=== PATIENT | male | born 1945 | race Caucasian/White ===

== ENCOUNTER 2024-07-06 17:13 | Inpatient (IN) | payer MEDICARE, OTHER, SELFPAY ==
[2024-07-06 14:17] VITALS: BP 134/80
[2024-07-06 14:39] VITALS: BP 119/78; BMI 27.8
--- NOTE | 2024-07-06 14:53 | ED.GENMED ---
History of Present Illness
General
Chief Complaint: Cold/Flu/URI Symptoms
Source: patient and spouse
Exam Limitations: none
Time Seen by Provider: 07/06/24 14:28
Nursing documentation reviewed up to this point in time: agreed with
History of Present Illness
History of Present Illness:
79-year-old male with past medical history of hypertension, hyperlipidemia, CAD, atrial fibrillation, aortic stenosis who presents to the emergency room with his daughter for evaluation of malaise and cough in the setting of known COVID infection.
Patient reports that he has been ill for 10 days. He says that he tested positive for COVID about a week ago. He says that his primary symptom has been hacking cough productive of clear sputum. He reports some mild shortness of breath. He has
also had loss of appetite, tremendous fatigue, nausea and crampy abdominal pain with diarrhea/stool incontinence. He denies any chest pain. He denies any sore throat. He denies any fevers or chills. With his symptoms not improving after 10 days
he was referred by his primary doctor to the emergency room. He is vaccinated for COVID. He did not take Paxlovid.
Past History
Past History
ED Past Medical History: CAD, HTN, Hypercholesterolemia and Other (Arthritis, vertigo)
ED Past Surgical History: Cardiac and Orthopedic
Social History
Tobacco: Non-smoker
Personal:
Living: with family
Review of Systems
Review of Systems
All Other Systems: ROS reviewed and negative except as documented in HPI and ROS
Constitutional: Reports fatigue; Denies fever or chills
EENT: Denies sore throat or runny nose
Respiratory: Reports cough and trouble breathing
Cardiac: Denies chest pain or palpitations
ABD/GI: Reports abdominal pain, nausea, diarrhea and anorexia; Denies vomiting
: Denies flank pain
Musculoskeletal: Denies neck pain or back pain
Neurological: Denies dizzy or headache
Phy Exam
Physical Exam
Physical Exam:
General: Awake, alert, oriented x3; no acute distress
Head: Normocephalic, atraumatic
Eyes: Conjunctiva normal
Throat: Airway intact, handling secretions
Neck: Trachea midline, supple without meningismus
Lungs: Frequent hacking cough with occasional expiratory wheeze; acceptable respiratory rate, low normal pulse ox 92% on room air
Heart: Regular rate and rhythm, systolic murmur
Abd: Soft, non distended, nontender
Neuro: Cranial nerves grossly intact, speech fluid
Skin: no rash
Extremities: No edema in extremities, warm well-perfused
Scores
Heart Failure Risk
Heart Failure Risk Score: Not Applicable
Heart Score for Chest Pain Patients
STEMI patient?: Not applicable
Withdrawal Assessment of Alcohol
Withdrawal Assessment Completed?: Not applicable
Course
Orders/Labs/Results
Orders:
Orders
07/06/24 14:30
CR Chest - 2 Views Urgent
Comment:
Reason For Exam: persistent cough sp COVID
07/06/24 14:39
Ipratropium/Albuterol Sulfate [Duoneb] 3 ml INH R NOW ONE
07/06/24 14:40
0.9% Sodium Chloride 500 ml [Nss] 500 ml IV BOLUS
07/06/24 14:47
Complete Blood Count/With Diff Urgent
Comprehensive Metabolic Panel Urgent
07/06/24 15:17
EKG [Electrocardiogram (*1)] Urgent
Reason for Study: Atrial Fibrillation
EKG- Treatment ONCE
07/06/24 15:18
Azithromycin 500 mg/250 ml [Zithromax Infusion] 500 mg in 250 ml IV NOW
CefTRIAXone [Rocephin] 1,000 mg IV NOW STA
07/06/24 15:40
Doxycycline Hyclate [Vibramycin] 100 mg 0.9% Sodium Chloride 250 ml [Nss] 250 ml IV NOW
Abnormal Lab Results
07/06/24
14:47
WBC 11.0 H 10^3/uL
(4.8-10.8)
MPV 10.6 H fL
(7.4-10.4)
Abs Immat Gran (auto) 0.2 H 10^3/uL
(0-0.05)
Absolute Neuts (auto) 8.3 H 10^3/uL
(1.4-6.5)
Absolute Lymphs (auto) 0.8 L 10^3/uL
(1.2-3.4)
Absolute Monos (auto) 1.6 H 10^3/uL
(0.1-0.6)
Immature Gran % 2.0 H %
(0-0.5)
Neutrophils % 75.8 H %
(42.2-75.2)
Lymphocytes % 6.9 L %
(20.5-51.1)
Monocytes % 14.7 H %
(1.7-9.3)
Sodium 129 L mmol/L
(135-145)
Chloride 96 L mmol/L
(98-107)
BUN 28 H mg/dl
(9-20)
Glucose 151 H mg/dl
(70-99)
AST 95 H U/L
(17-59)
ALT 73 H U/L
(0-50)
Total Protein 5.9 L g/dl
(6.3-8.2)
07/06/24 14:47
07/06/24 14:47
Vital Signs
Initial and Last Documented VS:
Initial Vital Signs
Temp Pulse Resp BP Pulse Ox
37.0 C 99 17 134/80 91
07/06/24 14:17 07/06/24 14:17 07/06/24 14:17 07/06/24 14:17 07/06/24 14:17
Last Documented Vital Signs
Temp Pulse Resp BP Pulse Ox
37.0 C 116 17 119/78 96
07/06/24 14:17 07/06/24 14:45 07/06/24 14:45 07/06/24 14:39 07/06/24 15:04
MDM/Problems Addressed
Differential Diagnosis Includes:
Bronchitis, pneumonia, viral syndrome
MDM/Problems Addressed:
79-year-old male presents for evaluation of continued malaise, cough, GI symptoms in the setting of a known COVID infection�he is 10 days into his symptoms. Vital signs were significant for low normal pulse ox on room air; rest of exam as above.
Plan to place an IV check labs including a CBC and a CMP. Will check a chest x-ray to evaluate for pneumonia. Will treat with a DuoNeb treatment. Provide some fluids. Will reassess after the above.
Labs reviewed: CBC shows leukocytosis to 11. CMP shows mild hyponatremia 129, marginal transaminitis. Chest x-ray reviewed by me shows right lower lung pneumonia. Will treat with antibiotics for community-acquired pneumonia. CURB-65 score 2 and
given co-morbidities and post-viral pneumonia will admit for continued treatment. Case discussed with hospitalist.
*Radiology
Radiology exam reviewed: preliminary read by ED provider and radiology read reviewed
*Pulse Oximetry
Patient hypoxic: no
*EKG
Interpreted by ED Provider?: Yes
Heart Rate: 96
Rate: normal
Rhythm: a-fib
[place]: normal axis
Interval: normal interval
QRS Pattern: normal QRS
Ischemia: non-specific ST changes
*Critical Care Note
Total Time (30-74mins, 75-104mins- exclusive of procedures): Not Applicable
Data Reviewed
Source: patient, spouse and physician (PCP called ahead)
Patient Management
Discussion with other providers: Hospitalist (Discussed with hospitalist) and PCP (Discussed directly with primary care provider)
Escalation/DeEscalation of care consider admission/obs:
Admission indicated
ED Attending Note
-
Portions of this chart may have been created with voice recognition software.� Occasional wrong word or��sound alike� substitutions may have occurred due to the inherent limitations of voice recognition software.
Discharge Plan
Departure
Patient Disposition: Admit
Date of Disposition: 07/06/24
Time of Disposition: 15:59
Admit to doctor: Do
Presentation/result/management discussed w/ accepting MD/DO: Hospitalist
Patient with high blood pressure during this ER visit?: No
Discharge Problem:
Pneumonia
Prescriptions:
No Action
tamsulosin 0.4 MG capsule
0.4 mg PO DAILY
finasteride 5 MG tablet
5 mg PO DAILY
escitalopram oxalate 20 mg Tablet
20 mg PO HS
rosuvastatin 40 mg Tablet
40 mg PO HS
bupropion HCl 150 mg Tablet Extended Release 24 Hr
150 mg PO DAILY
aspirin 81 MG tablet,delayed release (DR/EC)
81 mg PO DAILY
ibuprofen [Advil Liqui-Gel] 200 mg Capsule
400 mg PO Q6HPRN PRN (Reason: mild pain)
amlodipine [Norvasc] 5 mg Tablet
5 mg PO QPM
TheraTears 0.25 % Drops
1 drp BOTH EYES BIDPRN PRN (Reason: dryness)
dextroamphetamine-amphetamine [Adderall] 20 mg Tablet
20 mg PO BID
Sinex Ultra Fine Mist Regular 0.5 % Mist
1 spray INTRANASAL DAILYPRN PRN (Reason: congestion)
Eliquis 5 mg Tablet
5 mg PO BID
oxycodone-acetaminophen [Endocet] 10-325 mg tablet
1 tab PO Q3HPRN MDD 8 tablets PRN (Reason: severe pain)
benzonatate 100 mg Capsule
100 mg PO TIDPRN PRN (Reason: cough)
Tylenol Cold and Flu Severe [phone] mg Tablet
2 tab PO DAILYPRN PRN (Reason: head pressure)
Referrals:
Iris Evans PA-C [Family Provider] -
Interventions
Interventions:
*Risk Screen - Suicide Last Done: 07/06/24 14:39
*General Assessment Last Done: 07/06/24 14:39
*Neglect/Abuse Screening Last Done: 07/06/24 14:39
ED- Fall Risk Assessment Last Done: 07/06/24 14:39
*ED COVID-19 Vaccine History Last Done: 07/06/24 14:39
ED- Pulmonary Assessment Last Done: 07/06/24 15:04
Discharge Date and Time
Print Language: BENGALI
[2024-07-06] MEDS: NSS 500 IV (14:59)
[2024-07-06] MEDS: DUONEB 3 ML INH (15:12)
[2024-07-06 15:17] LABS: Hematocrit 41.5 % (39.0-52.0); Hemoglobin 15.1 g/dL (13.0-18.0); Mean Corp Hgb Conc. 36.4 g/dL (33.0-37.0); Mean Corpuscular Hgb 29.3 pg (27.0-31.0); Mean Corpuscular Volume 80.6 fL (80.0-94.0); Mean Platelet Volume 10.6 fL (7.4-10.4); Platelet Count 250 10^3/uL (130-400); Red Blood Cell Count 5.15 10^6/uL (4.70-6.10); Red Cell Dist. Width 12.9 % (11.5-14.5)
[2024-07-06] MEDS: ROCEPHIN 1000 MG IV (15:24)
[2024-07-06] MEDS: ZITHROMAX INFUSION 250 IV (15:25)
[2024-07-06 15:43] LABS: % Basophils 0.5 % (0-2); % Eosinophils 0.1 % (0-6); % Lymphocytes 6.9 % (20.5-51.1); % Monocytes 14.7 % (1.7-9.3); % Neutrophils 75.8 % (42.2-75.2); Absolute Basophils 0.1 10^3/uL (0-0.2); Absolute Immature Granulocytes 0.2 10^3/uL (0-0.05); Absolute Lymphocytes 0.8 10^3/uL (1.2-3.4); Absolute Monocytes 1.6 10^3/uL (0.1-0.6); Absolute Neutrophils 8.3 10^3/uL (1.4-6.5); Nucleated Red Blood Cells % 0 % (-)
[2024-07-06 15:56] LABS: ALT (SGPT) 73 U/L (0-50); AST (SGOT) 95 U/L (17-59); Albumin 3.5 g/dl (3.5-5.0); Alkaline Phosphatase 90 U/L (38-126); Blood Urea Nitrogen 28 mg/dl (9-20); Calcium 8.9 mg/dl (8.4-10.2); Carbon Dioxide 23 mmol/L (22-30); Chloride 96 mmol/L (98-107); Estimated Creatinine Clearance 80 ml/min; Glucose 151 mg/dl (70-99); Potassium 3.6 mmol/L (3.5-5.1); Sodium 129 mmol/L (135-145); Total Bilirubin 1.2 mg/dl (0.2-1.3); Total Protein 5.9 g/dl (6.3-8.2); eGFR > 60.00
[2024-07-06 16:00] VITALS: BP 132/78
[2024-07-06] MEDS: VIBRAMYCIN 260 MG IV (16:27)
--- NOTE | 2024-07-06 16:51 | HPS.HSE ---
Family Physician
-
Family Physician: Iris Evans
Chief Complaint
-
Cough, flulike symptoms
History of Present Illness
79-year-old male with past medical history of CAD status post quadruple bypass, hypertension, hyperlipidemia, arthritis, paroxysmal atrial fibrillation, aortic stenosis status post aortic valve replacement came to the hospital with ongoing cough,
malaise. Patient has been having the symptoms from past 10 days and got himself checked for COVID this past Friday which came out positive. Since his symptoms were not getting better so his primary care provider told him to come to the ED for
evaluation. He also does note mild shortness of breath. Denies any fever/chills. Denies any chest pain, nausea, vomiting, diarrhea, constipation. He did not took Paxlovid when he was diagnosed with COVID.
Medical History
Past Medical History
Past Medical History: Reports Arrhythmia, CAD, HTN, Hypercholesterolemia and Other (BPH, arthritis)
Past Surgical History: Reports Cardiac (Quadruple bypass, aortic valve replacement) and Orthopedic
Social History
Tobacco: Non-smoker
Family History
Family History: Not pertinent
Allergies / Home Medications
Allergies reflects when Allergies were last updated in [email or web address].
Home Medications with original date entered in [email or web address]
Allergy/Medication List:
Allergies
Allergy/AdvReac Type Severity Reaction Status Date / Time
diazepam [From Valium] Allergy 'I get Verified 07/06/24 14:17
violent'
Home Medications
finasteride 5 mg tablet 5 mg PO DAILY Urinary issue 09/05/20
tamsulosin 0.4 mg capsule 0.4 mg PO DAILY Urinary issue 09/05/20
bupropion HCl 150 mg 24 hr tablet, extended release 150 mg PO DAILY Mental health 10/10/22
escitalopram oxalate 20 mg tablet 20 mg PO HS Mental health 10/10/22
rosuvastatin 40 mg tablet 40 mg PO HS High cholesterol 10/10/22
aspirin 81 mg tablet,delayed release 81 mg PO DAILY Blood clot prevention/tx 11/25/22
amlodipine 5 mg tablet (Norvasc) 5 mg PO QPM 07/06/24
apixaban 5 mg tablet (Eliquis) 5 mg PO BID 07/06/24
benzonatate 100 mg capsule 100 mg PO TIDPRN PRN cough 07/06/24
carboxymethylcellulose sodium 0.25 % eye drops (TheraTears) 1 drp BOTH EYES BIDPRN PRN dryness 07/06/24
dextroamphetamine-amphetamine 20 mg tablet (Adderall) 20 mg PO BID 07/06/24
ibuprofen 200 mg capsule (Advil Liqui-Gel) 400 mg PO Q6HPRN PRN mild pain 07/06/24
oxycodone-acetaminophen 10 mg-325 mg tablet (Endocet) 1 tab PO Q3HPRN PRN severe pain 07/06/24
phenylephrine HCl 0.5 % nasal mist 1 spray intranasal DAILYPRN PRN congestion 07/06/24
zpictbekghphk-JO-janxgimvtnjar-guaifen 5 mg-10 mg-325 mg-200 mg tablet (Tylenol Cold and Flu Severe) 2 tab PO DAILYPRN PRN head pressure 07/06/24
Review of Systems
-
History Source: Patient
A 12 point ROS was completed and negative except as noted: Yes
Physical Exam
Vital Signs
Vital Signs
Temp Pulse Resp BP Pulse Ox
98.6 F 104 22 132/78 94
07/06/24 14:17 07/06/24 16:00 07/06/24 16:00 07/06/24 16:00 07/06/24 16:00
Physical Exam
General: No Apparent Distress and Comfortable
HEENT: Anicteric and Moist mucous membranes
Respiratory: Clear and Non Labored Respirations; No Wheezes
Cardiac: S1/S2, Regular Rhythm and Irregular Rhythm
Breast: Deferred by me
GI: Soft, Non Tender, Non Distended and Normal Bowel Sounds
Rectal: Deferred by Provider
Genito-urinary: Deferred by me
Musculoskeletal: No Edema
Neuro: Awake, Alert, Oriented and AO x 3
Psych: Calm and Intact Judgment/Insight
Laboratory Results
-
07/06/24 14:47
07/06/24 14:47
Laboratory Results
Total Bilirubin 1.2 mg/dl (0.2-1.3) 07/06/24 14:47
AST 95 U/L (17-59) H 07/06/24 14:47
ALT 73 U/L (0-50) H 07/06/24 14:47
Alkaline Phosphatase 90 U/L (38-126) 07/06/24 14:47
Data Reviewed
-
Diagnostic Radiology: Report Reviewed by me and Discussed with Patient
Lab Data: Labs Reviewed by me and Discussed with Patient
Impression/Plan
-
Suspect superimposed bacterial pneumonia with underlying COVID-19 infection
COVID-positive 07/03/2024 however symptoms started before with fatigue
covid vaccinated
02 used on admission for comfort; no clear timeline so not a good candidate for paxlovid
CXR with PNA; check procal
Tessalon Perles, Mucinex
check trop
Hyponatremia
Check urine and serum studies
Monitor
Elevated LFTs
Monitor
History of paroxysmal A-fib
Currently in A-fib, rate controlled
Lopressor as needed
Check troponin
Follows with Dr. Wilburn outpatient
Continue Eliquis
CAD with history of quadruple bypass
Continue to monitor
History of aortic valve replacement
Monitor
History of BPH
Continue with home meds
DVT prophylaxis
Eliquis
Full code
I spent a total of 77 minutes with the patient or on the floor. More than 50% of this time involved counseling and coordination of care.
[2024-07-06 17:41] VITALS: BP 140/79; BMI 27.7
[2024-07-06 17:46] LABS: Troponin I 0.033 ng/ml
[2024-07-06 17:57] LABS: Procalcitonin 2.21 ng/ml (0.0-0.25)
[2024-07-06] MEDS: NORVASC 5 MG PO (18:16)
[2024-07-06] MEDS: NSS 1000 IV (18:16)
[2024-07-06] MEDS: KCL 40 MEQ PO (18:16)
[2024-07-06] MEDS: MUCINEX 1200 MG PO (18:16)
[2024-07-06 18:34] LABS: Osmolality Serum 281 mOsm/kg (275-300)
[2024-07-06 18:39] VITALS: BMI 27.7
[2024-07-06 20:09] VITALS: BP 137/81
[2024-07-06] MEDS: BENADRYL 6.25 MG IV (21:02)
[2024-07-06] MEDS: ELIQUIS 5 MG PO (21:03)
[2024-07-06] MEDS: TESSALON PERLES 200 MG PO (21:39)
[2024-07-06] MEDS: LEXAPRO 20 MG PO (21:39)
[2024-07-06] MEDS: CRESTOR 40 MG PO (21:39)
[2024-07-06 22:00] LABS: Troponin I 0.032 ng/ml
[2024-07-06 23:01] VITALS: BP 121/76
[2024-07-07] VITALS (8 sets, daily range): BP systolic 108–130; BP diastolic 64–83; PULSE 57–94; O2SAT 94; BMI 28.3
[2024-07-07] MEDS: VISBIOME 1 CAP PO ×2 (00:29→08:53)
[2024-07-07] MEDS: VIBRAMYCIN 260 MG IV ×2 (03:55→15:15)
[2024-07-07 06:43] LABS: Osmolality Urine 911 mOsm/kg (300-900)
[2024-07-07 06:52] LABS: Urine Sodium 5 mmol/L (30-90)
[2024-07-07 07:12] LABS: Troponin I 0.042 ng/ml
[2024-07-07 07:27] LABS: ALT (SGPT) 59 U/L (0-50); AST (SGOT) 68 U/L (17-59); Alkaline Phosphatase 93 U/L (38-126); Blood Urea Nitrogen 23 mg/dl (9-20); Calcium 8.2 mg/dl (8.4-10.2); Carbon Dioxide 24 mmol/L (22-30); Chloride 100 mmol/L (98-107); Estimated Creatinine Clearance 93 ml/min; Glucose 101 mg/dl (70-99); Magnesium 2.3 mg/dl (1.6-2.3); Potassium 3.6 mmol/L (3.5-5.1); Sodium 133 mmol/L (135-145); Total Bilirubin 0.8 mg/dl (0.2-1.3); Total Protein 5.2 g/dl (6.3-8.2); eGFR > 60.00
[2024-07-07 08:06] LABS: % Basophils 0.4 % (0-2); % Eosinophils 0.1 % (0-6); % Immature Granulocytes 2.5 % (0-0.5); % Lymphocytes 12.4 % (20.5-51.1); % Monocytes 15.4 % (1.7-9.3); % Neutrophils 69.2 % (42.2-75.2); Absolute Immature Granulocytes 0.3 10^3/uL (0-0.05); Absolute Lymphocytes 1.2 10^3/uL (1.2-3.4); Absolute Monocytes 1.5 10^3/uL (0.1-0.6); Absolute Neutrophils 6.9 10^3/uL (1.4-6.5); Hematocrit 38.5 % (39.0-52.0); Hemoglobin 13.7 g/dL (13.0-18.0); Mean Corp Hgb Conc. 35.6 g/dL (33.0-37.0); Mean Corpuscular Hgb 29.8 pg (27.0-31.0); Mean Corpuscular Volume 83.7 fL (80.0-94.0); Mean Platelet Volume 10.7 fL (7.4-10.4); Nucleated Red Blood Cells % 0 % (-); Platelet Count 233 10^3/uL (130-400); Red Cell Dist. Width 12.9 % (11.5-14.5); White Blood Cell Count 9.9 10^3/uL (4.8-10.8)
[2024-07-07] MEDS: FLOMAX 0.4 MG PO (08:52)
[2024-07-07] MEDS: MUCINEX 1200 MG PO ×2 (08:52→19:43)
[2024-07-07] MEDS: PROSCAR 5 MG PO (08:53)
[2024-07-07] MEDS: ELIQUIS 5 MG PO ×2 (08:53→19:43)
[2024-07-07] MEDS: WELLBUTRIN XL (24 hour extended release) 150 MG PO (08:53)
[2024-07-07] MEDS: ADDERALL 20 MG PO ×2 (08:53→12:44)
[2024-07-07] MEDS: ASPIR LOW (ENTERIC COATED) 81 MG PO (08:53)
[2024-07-07] MEDS: TESSALON PERLES 200 MG PO ×3 (08:53→21:38)
[2024-07-07 11:01] LABS: Troponin I 0.031 ng/ml
--- NOTE | 2024-07-07 11:40 | W.PN.HOSP.TC ---
Today's Communication/Plan
-
Monitor vital signs see plan
Wean oxygen as tolerated
Continue with COVID isolation
Continue antibiotics
PT/OT
Continue with Mucinex, Tessalon Perles
Assessment / Plan
Assessment / Plan
General: No Apparent Distress and Comfortable
HEENT: Anicteric and Moist mucous membranes
Respiratory: Clear and Non Labored Respirations; No Wheezes
Cardiac: S1/S2, Regular Rhythm and Irregular Rhythm
GI: Soft, Non Tender, Non Distended and Normal Bowel Sounds
Musculoskeletal: No Edema
Neuro: Awake, Alert, Oriented and AO x 3
Psych: Calm and Intact Judgment/Insight
Suspect superimposed bacterial pneumonia with underlying COVID-19 infection
COVID-positive 07/03/2024 however symptoms started before with fatigue
covid vaccinated
02 used on admission for comfort; no clear timeline so not a good candidate for paxlovid. Wean oxygen as tolerated
CXR with PNA;procal high
Tessalon Perles, Mucinex
check trop
Elevated Trope likely secondary to nonischemic myocardial injury
Trope peaked at 0.04
Hyponatremia
Monitor, improving
Elevated LFTs
Monitor
History of paroxysmal A-fib
Currently in A-fib, rate controlled
Lopressor as needed
Follows with Dr. Wilburn outpatient
Continue Eliquis
CAD with history of quadruple bypass
Continue to monitor
History of aortic valve replacement
Monitor
History of BPH
Continue with home meds
DVT prophylaxis
Eliquis
Full code
Anticipated Discharge: 24 - 48 hours
Subjective/Interval History
-
Date of Service: July 07, 2024
Denies pain
Objective Data
-
Labs:
Laboratory Results
07/07/24
05:09
WBC 9.9
Hgb 13.7
Hct 38.5 L
Plt Count 233
Sodium 133 L
Potassium 3.6
Chloride 100
Carbon Dioxide 24
BUN 23 H
Creatinine 0.6 L
Glucose 101 H
Calcium 8.2 L
Total Bilirubin 0.8
AST 68 H
ALT 59 H
Alkaline Phosphatase 93
Vital Signs:
Vital Signs
Temp Pulse Resp BP Pulse Ox
97.8 F 95 18 130/79 96
07/07/24 07:10 07/07/24 07:10 07/07/24 07:10 07/07/24 07:10 07/07/24 07:10
I&O
07/06/24 07/07/24 07/08/24
06:59 06:59 06:59
Output Total 415 / 415
Balance -415 / -415
--- NOTE | 2024-07-07 12:27 | CM ---
Addendum entered by Alex Coronado 07/07/24 13:44:
PT and OT evaluations noted - home PT/OT recommended. pt agrees and preferred [facility]. A referral to [facility] made.
D/C plan: home with [facility] and family support.
Original Note:
CM following re: discharge planning.
Reviewed pt's chart, met with pt.
Pt is an 79 year old male, admitted with primary dx of superimposed bacterial pneumonia with underlying COVID-19 infection
Pt reports he lives with spouse in a 2SH, 2 steps to enter, has 2 supportive children. 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 No DME, VN or SNF history.
PT and OT will evaluate the pt to determine a level of care at discharge.
PCP: Iris Evans
Pharmacy: [facility]
D/C plan: home with anticipated no needs. PT/OT to clarify
CM will follow wit discharge plan updates as hospitalization progresses
--- NOTE | 2024-07-07 15:07 | VNURNOTE ---
Home Health Liaison spoke with patient over the phone to discuss [facility] nurse/therapy, visits. Patient is agreeable and understands that visits at home will be 2-3 x per week to assess and teach medical management. He has had VN in the past post
heart surgery. Patient is aware that [facility] will contact them for start of care within a few days after discharge from .
[facility] referral completed in [facility].
[2024-07-07] MEDS: ROCEPHIN 1000 MG IV (15:15)
[2024-07-07] MEDS: STERILE WATER FOR INJECTION 10 ML IV (15:15)
[2024-07-07] MEDS: NORVASC 5 MG PO (17:27)
[2024-07-07] MEDS: CRESTOR 40 MG PO (21:37)
[2024-07-07] MEDS: LEXAPRO 20 MG PO (21:38)
[2024-07-08 03:32] VITALS: BP 117/79
[2024-07-08] MEDS: VIBRAMYCIN 260 MG IV ×2 (03:33→16:12)
[2024-07-08 06:00] VITALS: BMI 28.4
[2024-07-08 07:15] VITALS: BP 110/78
[2024-07-08 07:21] LABS: ALT (SGPT) 72 U/L (0-50); AST (SGOT) 80 U/L (17-59); Albumin 2.9 g/dl (3.5-5.0); Alkaline Phosphatase 93 U/L (38-126); Blood Urea Nitrogen 21 mg/dl (9-20); Calcium 8.4 mg/dl (8.4-10.2); Carbon Dioxide 22 mmol/L (22-30); Chloride 105 mmol/L (98-107); Estimated Creatinine Clearance 93 ml/min; Glucose 107 mg/dl (70-99); Potassium 3.7 mmol/L (3.5-5.1); Sodium 133 mmol/L (135-145); Total Bilirubin 0.5 mg/dl (0.2-1.3); Total Protein 5.1 g/dl (6.3-8.2); eGFR > 60.00
[2024-07-08 07:29] LABS: Hematocrit 35.6 % (39.0-52.0); Hemoglobin 12.6 g/dL (13.0-18.0); Mean Corp Hgb Conc. 35.4 g/dL (33.0-37.0); Mean Corpuscular Volume 81.8 fL (80.0-94.0); Platelet Count 279 10^3/uL (130-400); Red Blood Cell Count 4.35 10^6/uL (4.70-6.10); Red Cell Dist. Width 13.2 % (11.5-14.5); White Blood Cell Count 10.4 10^3/uL (4.8-10.8)
[2024-07-08] MEDS: ADDERALL 20 MG PO ×2 (08:27→13:15)
[2024-07-08] MEDS: MUCINEX 1200 MG PO ×2 (08:27→20:51)
[2024-07-08] MEDS: FLOMAX 0.4 MG PO (08:27)
[2024-07-08] MEDS: ASPIR LOW (ENTERIC COATED) 81 MG PO (08:27)
[2024-07-08] MEDS: VISBIOME 1 CAP PO (08:27)
[2024-07-08] MEDS: TESSALON PERLES 200 MG PO ×3 (08:28→21:57)
[2024-07-08] MEDS: WELLBUTRIN XL (24 hour extended release) 150 MG PO (08:28)
[2024-07-08] MEDS: PROSCAR 5 MG PO (08:28)
[2024-07-08] MEDS: ELIQUIS 5 MG PO ×2 (08:28→20:51)
[2024-07-08 09:14] LABS: % Basophils 0.5 % (0-2); % Eosinophils 0.5 % (0-6); % Immature Granulocytes 5.1 % (0-0.5); % Lymphocytes 16.1 % (20.5-51.1); % Monocytes 10.3 % (1.7-9.3); % Neutrophils 67.5 % (42.2-75.2); Absolute Basophils 0.1 10^3/uL (0-0.2); Absolute Eosinophils 0.1 10^3/uL (0-0.7); Absolute Immature Granulocytes 0.5 10^3/uL (0-0.05); Absolute Lymphocytes 1.7 10^3/uL (1.2-3.4); Absolute Monocytes 1.1 10^3/uL (0.1-0.6); Absolute Neutrophils 7.1 10^3/uL (1.4-6.5); Nucleated Red Blood Cells % 0 % (-)
--- NOTE | 2024-07-08 11:34 | W.PN.HOSP.TC ---
Today's Communication/Plan
-
Monitor vital signs and see plan
Continue with antibiotics
Antitussives
Continue to wean oxygen
Assessment / Plan
Assessment / Plan
General: No Apparent Distress and Comfortable
HEENT: Anicteric and Moist mucous membranes
Respiratory: Clear and Non Labored Respirations; No Wheezes
Cardiac: S1/S2, Regular Rhythm and Irregular Rhythm
GI: Soft, Non Tender, Non Distended and Normal Bowel Sounds
Musculoskeletal: No Edema
Neuro: Awake, Alert, Oriented and AO x 3
Psych: Calm and Intact Judgment/Insight
Suspect superimposed bacterial pneumonia with underlying COVID-19 infection
COVID-positive 07/03/2024 however symptoms started before with fatigue
covid vaccinated
02 used on admission for comfort; no clear timeline so not a good candidate for paxlovid. Wean oxygen as tolerated
CXR with PNA;procal high
Tessalon Perles, Mucinex
Elevated Trope likely secondary to nonischemic myocardial injury
Trope peaked at 0.04
History of BPH
Periods of Acute urinary retention status post straight cath
Continue with home meds
Hyponatremia
Monitor, improving
Elevated LFTs
Monitor
History of paroxysmal A-fib
Currently in A-fib, rate controlled
Lopressor as needed
Follows with Dr. Wilburn outpatient
Continue Eliquis
CAD with history of quadruple bypass
Continue to monitor
History of aortic valve replacement
Monitor
DVT prophylaxis
Eliquis
Full code
Anticipated Discharge: 24 - 48 hours
Subjective/Interval History
-
Date of Service: July 08, 2024
denies pain
Objective Data
-
Labs:
Laboratory Results
07/08/24
06:35
WBC 10.4
Hgb 12.6 L
Hct 35.6 L
Plt Count 279
Sodium 133 L
Potassium 3.7
Chloride 105
Carbon Dioxide 22
BUN 21 H
Creatinine 0.6 L
Glucose 107 H
Calcium 8.4
Total Bilirubin 0.5
AST 80 H
ALT 72 H
Alkaline Phosphatase 93
Vital Signs:
Vital Signs
Temp Pulse Resp BP Pulse Ox
97.7 F 92 20 110/78 94
07/08/24 07:15 07/08/24 07:15 07/08/24 07:15 07/08/24 07:15 07/08/24 07:15
I&O
07/07/24 07/08/24 07/09/24
06:59 06:59 06:59
Intake Total 1620 / 1620
Output Total 415 / 415 600 / 600
Balance -415 / -415 1020 / 1020
[2024-07-08 11:56] VITALS: BP 104/74
--- NOTE | 2024-07-08 13:52 | PTCARENOTE ---
pt attempted to void in urinal with no success. pt scanned for 402ml, straight cathed at bedside by this nurse for 450 of aamri colored urine. pt tolerated catheterization. made aware. order to straight cath one more time if needed and then if
still retaining to place a bob. BUN of 21 and creat of 0.6 this morning.
--- NOTE | 2024-07-08 14:53 | CM ---
COVID: Discharge Plan of Care: Home with [facility], PT/OT services.
[2024-07-08 15:29] VITALS: BP 115/69
[2024-07-08] MEDS: ROCEPHIN 1000 MG IV (16:12)
[2024-07-08] MEDS: STERILE WATER FOR INJECTION 10 ML IV (16:12)
[2024-07-08 16:23] VITALS: BP 135/89; BP 99/75; PULSE 95; O2SAT 95
[2024-07-08] MEDS: NORVASC PO (18:14)
[2024-07-08] MEDS: CRESTOR 40 MG PO (20:51)
[2024-07-08] MEDS: LEXAPRO 20 MG PO (20:51)
[2024-07-08 23:10] VITALS: BP 134/88
[2024-07-08] MEDS: ROXICODONE 10 MG PO (23:40)
[2024-07-08] MEDS: TYLENOL 325 MG PO (23:41)
[2024-07-09] MEDS: VIBRAMYCIN 260 MG IV ×2 (03:47→15:53)
[2024-07-09 05:20] VITALS: BMI 28.5
--- NOTE | 2024-07-09 06:51 | W.PN.UPDATE ---
Update Note
Progress Note Update
Nursing reports patient passed a black stool which was heme +. He c/o nausea. will give compazine. morning labs pending. He takes Eliquis for afib.
[2024-07-09] MEDS: COMPAZINE 5 MG IV (07:06)
[2024-07-09 07:10] VITALS: BP 130/75
--- NOTE | 2024-07-09 07:17 | PTCARENOTE ---
Pt noted with x1 episode of black loose stool this morning and c/o nausea. Hemtest stool +, audiovisual production specialist TERRESTRIAL ECOLOGIST made aware, advised to hold am dose of eliquis, compazine given. On coming shift nurse made aware.
[2024-07-09 07:38] LABS: Hematocrit 35.9 % (39.0-52.0); Hemoglobin 12.9 g/dL (13.0-18.0); Mean Corp Hgb Conc. 35.9 g/dL (33.0-37.0); Mean Corpuscular Hgb 29.2 pg (27.0-31.0); Mean Corpuscular Volume 81.2 fL (80.0-94.0); Mean Platelet Volume 9.8 fL (7.4-10.4); Platelet Count 275 10^3/uL (130-400); Red Blood Cell Count 4.42 10^6/uL (4.70-6.10); Red Cell Dist. Width 13.2 % (11.5-14.5); White Blood Cell Count 8.9 10^3/uL (4.8-10.8)
[2024-07-09 07:46] LABS: ALT (SGPT) 72 U/L (0-50); AST (SGOT) 77 U/L (17-59); Albumin 2.9 g/dl (3.5-5.0); Alkaline Phosphatase 97 U/L (38-126); Blood Urea Nitrogen 18 mg/dl (9-20); Calcium 8.2 mg/dl (8.4-10.2); Carbon Dioxide 22 mmol/L (22-30); Chloride 104 mmol/L (98-107); Estimated Creatinine Clearance 93 ml/min; Glucose 108 mg/dl (70-99); Potassium 3.8 mmol/L (3.5-5.1); Sodium 133 mmol/L (135-145); Total Bilirubin 0.5 mg/dl (0.2-1.3); Total Protein 5.2 g/dl (6.3-8.2); eGFR > 60.00
[2024-07-09] MEDS: WELLBUTRIN XL (24 hour extended release) 150 MG PO (08:30)
[2024-07-09] MEDS: ADDERALL 20 MG PO ×2 (08:30→13:41)
[2024-07-09] MEDS: PROSCAR 5 MG PO (08:30)
[2024-07-09] MEDS: TESSALON PERLES 200 MG PO ×3 (08:30→21:08)
[2024-07-09] MEDS: ELIQUIS PO ×2 (08:30→20:35)
[2024-07-09] MEDS: FLOMAX 0.4 MG PO (08:30)
[2024-07-09] MEDS: VISBIOME 1 CAP PO (08:30)
[2024-07-09] MEDS: ASPIR LOW (ENTERIC COATED) 81 MG PO (08:33)
[2024-07-09] MEDS: MUCINEX 1200 MG PO ×2 (08:33→19:46)
[2024-07-09] MEDS: PROTONIX 40 MG PO (08:33)
[2024-07-09 09:52] LABS: % Basophils 0.5 % (0-2); % Eosinophils 0.7 % (0-6); % Immature Granulocytes 5.6 % (0-0.5); % Lymphocytes 14.8 % (20.5-51.1); % Monocytes 9.3 % (1.7-9.3); % Neutrophils 69.1 % (42.2-75.2); Absolute Eosinophils 0.1 10^3/uL (0-0.7); Absolute Immature Granulocytes 0.5 10^3/uL (0-0.05); Absolute Lymphocytes 1.3 10^3/uL (1.2-3.4); Absolute Monocytes 0.8 10^3/uL (0.1-0.6); Absolute Neutrophils 6.1 10^3/uL (1.4-6.5); Nucleated Red Blood Cells % 0 % (-)
--- NOTE | 2024-07-09 10:18 | PTCARENOTE ---
pt with bloody stools for manager night. HAND DRY CLEANER made aware overnight and MD made aware this morning. hgb was 12.9 this am. MD order to hold morning dose of Eliquis. see MAR for proper charting
--- NOTE | 2024-07-09 11:44 | W.PN.HOSP.TC ---
Today's Communication/Plan
-
Monitor vital signs see plan
Started PPI
GI evaluation if has more periods of black stool
Check H&H
Hold Eliquis currently
Continue with antibiotics
monitor LFT's
Assessment / Plan
Assessment / Plan
General: No Apparent Distress and Comfortable
HEENT: Anicteric and Moist mucous membranes
Respiratory: Clear and Non Labored Respirations; No Wheezes
Cardiac: S1/S2, Irregular Rhythm
GI: Soft, Non Tender, Non Distended and Normal Bowel Sounds
Musculoskeletal: No Edema
Neuro: Awake, Alert, Oriented and AO x 3
Psych: Calm and Intact Judgment/Insight
Suspect superimposed bacterial pneumonia with underlying COVID-19 infection
COVID-positive 07/03/2024 however symptoms started before with fatigue
covid vaccinated
02 used on admission for comfort; no clear timeline so not a good candidate for paxlovid. Wean oxygen as tolerated
CXR with PNA;procal high
Tessalon Perles, Mucinex
Black stool overnight with heme + stool
Currently Eliquis on hold; no abdominal pain. PPI
Monitor hemoglobin
If further bloody bowel movements then will consult GI
If hemoglobin stable and no further bowel movements then will restart Eliquis
Patient has history of hemorrhoids
Elevated Trope likely secondary to nonischemic myocardial injury
Trope peaked at 0.04
History of BPH
Periods of Acute urinary retention s/p bob; voiding trial once more ambulatory
Continue with home meds
Follows with Dr. Medina outpatient
Hyponatremia
Monitor, improving
Elevated LFTs
Monitor
History of paroxysmal A-fib
Currently in A-fib, rate controlled
Lopressor as needed
Follows with Dr. Wilburn outpatient
Continue Eliquis
CAD with history of quadruple bypass
Continue to monitor
History of aortic valve replacement
Monitor
DVT prophylaxis
Eliquis
Full code
I spent a total of 52 minutes with the patient or on the floor. More than 50% of this time involved counseling and coordination of care.
Anticipated Discharge: 24 - 48 hours
Subjective/Interval History
-
Date of Service: July 09, 2024
denies pain
Objective Data
-
Labs:
Laboratory Results
07/09/24
06:47
WBC 8.9
Hgb 12.9 L
Hct 35.9 L
Plt Count 275
Sodium 133 L
Potassium 3.8
Chloride 104
Carbon Dioxide 22
BUN 18
Creatinine 0.5 L
Glucose 108 H
Calcium 8.2 L
Total Bilirubin 0.5
AST 77 H
ALT 72 H
Alkaline Phosphatase 97
Vital Signs:
Vital Signs
Temp Pulse Resp BP Pulse Ox
97.9 F 100 16 130/75 96
07/09/24 07:10 07/09/24 07:10 07/09/24 07:10 07/09/24 07:10 07/09/24 10:12
I&O
07/08/24 07/09/24 07/10/24
06:59 06:59 06:59
Intake Total 1620 / 1620 2080 / 2080
Output Total 600 / 600 1400 / 1400
Balance 1020 / 1020 680 / 680
[2024-07-09 12:39] LABS: Hematocrit 36.8 % (39.0-52.0)
[2024-07-09 15:00] VITALS: BP 123/81
--- NOTE | 2024-07-09 15:05 | CM ---
Hem + stool, monitoring. Discharge Plan of Care remains home with [facility], PT/OT services.
[2024-07-09] MEDS: ROCEPHIN 1000 MG IV (15:53)
[2024-07-09] MEDS: STERILE WATER FOR INJECTION 10 ML IV (15:53)
[2024-07-09] MEDS: NORVASC PO (18:29)
[2024-07-09] MEDS: ROXICODONE 10 MG PO (20:05)
[2024-07-09] MEDS: LEXAPRO 20 MG PO (21:08)
[2024-07-09] MEDS: CRESTOR 40 MG PO (21:08)
[2024-07-09 23:53] VITALS: BP 113/65
[2024-07-10] MEDS: VIBRAMYCIN 260 MG IV ×2 (04:11→17:00)
[2024-07-10] MEDS: FLUSH (NSS) 2 FLUSH IV (04:11)
[2024-07-10 06:00] VITALS: BMI 28.2
[2024-07-10 07:10] VITALS: BP 119/72
[2024-07-10] MEDS: VISBIOME 1 CAP PO (08:31)
[2024-07-10] MEDS: WELLBUTRIN XL (24 hour extended release) 150 MG PO (08:31)
[2024-07-10] MEDS: ADDERALL 20 MG PO ×2 (08:31→14:14)
[2024-07-10] MEDS: FLOMAX 0.4 MG PO (08:31)
[2024-07-10] MEDS: TESSALON PERLES 200 MG PO ×3 (08:31→21:00)
[2024-07-10] MEDS: ASPIR LOW (ENTERIC COATED) 81 MG PO (08:31)
[2024-07-10] MEDS: MUCINEX 1200 MG PO ×2 (08:31→21:00)
[2024-07-10] MEDS: PROTONIX 40 MG PO (08:31)
[2024-07-10] MEDS: PROSCAR 5 MG PO (08:32)
[2024-07-10 08:46] LABS: % Basophils 0.5 % (0-2); % Eosinophils 0.6 % (0-6); % Immature Granulocytes 4.2 % (0-0.5); % Lymphocytes 17.2 % (20.5-51.1); % Monocytes 9.6 % (1.7-9.3); % Neutrophils 67.9 % (42.2-75.2); Absolute Basophils 0.1 10^3/uL (0-0.2); Absolute Eosinophils 0.1 10^3/uL (0-0.7); Absolute Immature Granulocytes 0.4 10^3/uL (0-0.05); Absolute Lymphocytes 1.7 10^3/uL (1.2-3.4); Absolute Neutrophils 6.8 10^3/uL (1.4-6.5); Hematocrit 36.1 % (39.0-52.0); Hemoglobin 12.3 g/dL (13.0-18.0); Mean Corp Hgb Conc. 34.1 g/dL (33.0-37.0); Mean Corpuscular Hgb 29.3 pg (27.0-31.0); Mean Platelet Volume 9.9 fL (7.4-10.4); Nucleated Red Blood Cells % 0 % (-); Platelet Count 282 10^3/uL (130-400); Red Cell Dist. Width 13.6 % (11.5-14.5)
[2024-07-10 09:51] LABS: ALT (SGPT) 68 U/L (0-50); AST (SGOT) 68 U/L (17-59); Albumin 2.8 g/dl (3.5-5.0); Alkaline Phosphatase 95 U/L (38-126); Blood Urea Nitrogen 14 mg/dl (9-20); Calcium 8.2 mg/dl (8.4-10.2); Carbon Dioxide 26 mmol/L (22-30); Chloride 99 mmol/L (98-107); Estimated Creatinine Clearance 93 ml/min; Glucose 88 mg/dl (70-99); Potassium 3.8 mmol/L (3.5-5.1); Sodium 131 mmol/L (135-145); Total Bilirubin 0.5 mg/dl (0.2-1.3); Total Protein 5.2 g/dl (6.3-8.2); eGFR > 60.00
--- NOTE | 2024-07-10 11:35 | W.PN.HOSP.TC ---
Today's Communication/Plan
-
Monitor vital signs
see plan
Continue with antibiotics
GI evaluation
PPI
Monitor hemoglobin
Eliquis on hold
Assessment / Plan
Assessment / Plan
General: No Apparent Distress and Comfortable
HEENT: Anicteric and Moist mucous membranes
Respiratory: Clear and Non Labored Respirations; No Wheezes
Cardiac: S1/S2, Irregular Rhythm
GI: Soft, Non Tender, Non Distended and Normal Bowel Sounds
Musculoskeletal: No Edema
Neuro: Awake, Alert, Oriented and AO x 3
Psych: Calm and Intact Judgment/Insight
Suspect superimposed bacterial pneumonia with underlying COVID-19 infection
COVID-positive 07/03/2024 however symptoms started before with fatigue
covid vaccinated
02 used on admission for comfort; no clear timeline so not a good candidate for paxlovid. Wean oxygen as tolerated
CXR with PNA;procal high
Tessalon Perles, Mucinex
Black stool overnight with heme + stool 07/08
another episode 07/09
Currently Eliquis on hold; no abdominal pain. PPI. consult GI
Monitor hemoglobin
Patient has history of hemorrhoids
Elevated Trop likely secondary to nonischemic myocardial injury
Trope peaked at 0.04
History of BPH
Periods of Acute urinary retention s/p bob; voiding trial once more ambulatory
Continue with home meds
Follows with Dr. Medina outpatient
Hyponatremia
Monitor, improving
Elevated LFTs
Monitor
History of paroxysmal A-fib
Currently in A-fib, rate controlled
Lopressor as needed
Follows with Dr. Wilburn outpatient
Continue Eliquis
CAD with history of quadruple bypass
Continue to monitor
History of aortic valve replacement
Monitor
DVT prophylaxis
SCD's
Full code
Anticipated Discharge: 24 - 48 hours
Subjective/Interval History
-
Date of Service: July 10, 2024
denies pain
Objective Data
-
Labs:
Laboratory Results
07/10/24
07:58
WBC 10.0
Hgb 12.3 L
Hct 36.1 L
Plt Count 282
Sodium 131 L
Potassium 3.8
Chloride 99
Carbon Dioxide 26
BUN 14
Creatinine 0.6 L
Glucose 88
Calcium 8.2 L
Total Bilirubin 0.5
AST 68 H
ALT 68 H
Alkaline Phosphatase 95
Vital Signs:
Vital Signs
Temp Pulse Resp BP Pulse Ox
98.0 F 89 16 119/72 96
07/10/24 07:10 07/10/24 07:10 07/10/24 07:10 07/10/24 07:10 07/10/24 08:00
I&O
07/09/24 07/10/24 07/11/24
06:59 06:59 06:59
Intake Total 2079 / 2079 2430 / 2430
Output Total 1400 / 1400 750 / 750
Balance 680 / 680 1680 / 1680
[2024-07-10 15:10] VITALS: BP 126/80
[2024-07-10] MEDS: STERILE WATER FOR INJECTION 10 ML IV (17:00)
[2024-07-10] MEDS: ROCEPHIN 1000 MG IV (17:00)
[2024-07-10] MEDS: NORVASC 5 MG PO (17:18)
[2024-07-10] MEDS: LEXAPRO 20 MG PO (21:00)
[2024-07-10] MEDS: CRESTOR 40 MG PO (21:00)
[2024-07-10 23:54] VITALS: BP 135/84
[2024-07-11] MEDS: VIBRAMYCIN 260 MG IV (04:16)
[2024-07-11] MEDS: FLUSH (NSS) 2 FLUSH IV (04:16)
[2024-07-11 06:00] VITALS: BMI 28.9
[2024-07-11] MEDS: ROXICODONE 10 MG PO ×4 (06:27→22:15)
[2024-07-11 07:10] VITALS: BP 136/80
[2024-07-11] MEDS: MUCINEX 1200 MG PO ×2 (09:16→19:39)
[2024-07-11] MEDS: WELLBUTRIN XL (24 hour extended release) 150 MG PO (09:16)
[2024-07-11] MEDS: ADDERALL 20 MG PO ×2 (09:16→13:29)
[2024-07-11] MEDS: TESSALON PERLES 200 MG PO ×3 (09:16→22:16)
[2024-07-11] MEDS: FLOMAX 0.4 MG PO (09:17)
[2024-07-11] MEDS: ASPIR LOW (ENTERIC COATED) 81 MG PO (09:17)
[2024-07-11] MEDS: PROSCAR 5 MG PO (09:18)
[2024-07-11] MEDS: VISBIOME 1 CAP PO (09:18)
[2024-07-11] MEDS: PROTONIX PO (09:24)
[2024-07-11] MEDS: PROTONIX IV 40 MG IV ×2 (09:49→19:40)
[2024-07-11] MEDS: NSS (PRESERVATIVE FREE) 10 ML IV ×2 (09:49→19:40)
--- NOTE | 2024-07-11 10:36 | W.PN.HOSP.TC ---
Addendum entered and electronically signed by Socrates Caban MD 07/22/24 12:00:
insignificant abnormal lab finding.
unable to determine if bleeding was exacerbated by eliquis
Addendum entered and electronically signed by Socrates Caban MD 07/11/24 13:34:
If no further bleeding by tomorrow then restart Eliquis
Original Note:
Today's Communication/Plan
-
Monitor vital signs and plan
Continue antibiotics
GI to see
Monitor hemoglobin
Assessment / Plan
Assessment / Plan
General: No Apparent Distress and Comfortable
HEENT: Anicteric and Moist mucous membranes
Respiratory: Clear and Non Labored Respirations; No Wheezes
Cardiac: S1/S2, Irregular Rhythm
GI: Soft, Non Tender, Non Distended and Normal Bowel Sounds
Musculoskeletal: No Edema
Neuro: Awake, Alert, Oriented and AO x 3
Psych: Calm and Intact Judgment/Insight
Suspect superimposed bacterial pneumonia with underlying COVID-19 infection
COVID-positive 07/03/2024 however symptoms started before with fatigue
covid vaccinated
02 used on admission for comfort; no clear timeline so not a good candidate for paxlovid. Wean oxygen as tolerated
CXR with PNA;procal high
Tessalon Perles, Mucinex
Black stool overnight with heme + stool 07/08
another episode 07/09
Currently Eliquis on hold; no abdominal pain. PPI. consulted GI
Monitor hemoglobin
Patient has history of hemorrhoids
Elevated Trop likely secondary to nonischemic myocardial injury
Trope peaked at 0.04
History of BPH
Periods of Acute urinary retention s/p bob; voiding trial once more ambulatory
Continue with home meds
Follows with Dr. Medina outpatient
Hyponatremia
Monitor, improving
Elevated LFTs
Monitor
History of paroxysmal A-fib
Currently in A-fib, rate controlled
Lopressor as needed
Follows with Dr. Wilburn outpatient
Continue Eliquis
CAD with history of quadruple bypass
Continue to monitor
History of aortic valve replacement
Monitor
DVT prophylaxis
SCD's
Full code
Anticipated Discharge: 24 - 48 hours
Subjective/Interval History
-
Date of Service: July 11, 2024
denies pain
Objective Data
-
Labs:
Laboratory Results
07/11/24
10:16
WBC Pending
Hgb Pending
Hct Pending
Plt Count Pending
Sodium Pending
Potassium Pending
Chloride Pending
Carbon Dioxide Pending
BUN Pending
Creatinine Pending
Glucose Pending
Calcium Pending
Total Bilirubin Pending
AST Pending
ALT Pending
Alkaline Phosphatase Pending
Vital Signs:
Vital Signs
Temp Pulse Resp BP Pulse Ox
98.3 F 89 18 136/80 93
07/11/24 07:10 07/11/24 07:10 07/11/24 07:10 07/11/24 07:10 07/11/24 07:10
I&O
07/10/24 07/11/24 07/12/24
06:59 06:59 06:59
Intake Total 2430 / 2430 1820 / 1820
Output Total 750 / 750 3350 / 3350
Balance 1680 / 1680 -1530 / -1530
[2024-07-11 10:43] LABS: % Basophils 0.4 % (0-2); % Eosinophils 0.7 % (0-6); % Immature Granulocytes 2.1 % (0-0.5); % Lymphocytes 16.3 % (20.5-51.1); % Monocytes 9.3 % (1.7-9.3); % Neutrophils 71.2 % (42.2-75.2); Absolute Eosinophils 0.1 10^3/uL (0-0.7); Absolute Immature Granulocytes 0.2 10^3/uL (0-0.05); Absolute Lymphocytes 1.5 10^3/uL (1.2-3.4); Absolute Monocytes 0.9 10^3/uL (0.1-0.6); Absolute Neutrophils 6.6 10^3/uL (1.4-6.5); Hematocrit 35.5 % (39.0-52.0); Hemoglobin 12.5 g/dL (13.0-18.0); Mean Corp Hgb Conc. 35.2 g/dL (33.0-37.0); Mean Corpuscular Volume 85.3 fL (80.0-94.0); Mean Platelet Volume 9.7 fL (7.4-10.4); Nucleated Red Blood Cells % 0 % (-); Platelet Count 257 10^3/uL (130-400); Red Blood Cell Count 4.16 10^6/uL (4.70-6.10); Red Cell Dist. Width 13.3 % (11.5-14.5); White Blood Cell Count 9.2 10^3/uL (4.8-10.8)
[2024-07-11 11:11] LABS: ALT (SGPT) 69 U/L (0-50); AST (SGOT) 72 U/L (17-59); Albumin 2.8 g/dl (3.5-5.0); Alkaline Phosphatase 95 U/L (38-126); Blood Urea Nitrogen 12 mg/dl (9-20); Calcium 8.3 mg/dl (8.4-10.2); Carbon Dioxide 25 mmol/L (22-30); Chloride 104 mmol/L (98-107); Estimated Creatinine Clearance 93 ml/min; Glucose 119 mg/dl (70-99); Potassium 3.9 mmol/L (3.5-5.1); Sodium 135 mmol/L (135-145); Total Bilirubin 0.4 mg/dl (0.2-1.3); Total Protein 5.1 g/dl (6.3-8.2); eGFR > 60.00
--- NOTE | 2024-07-11 12:15 | CON.GI ---
Consultation
-
Date/Time Consultation Requested: 07/10/2024
Date/Time Consultation Performed: 07/11/2024
Requesting Provider: Hospitalist
Performing Provider: Shelly WALLACE
Reason for Consultation: Melena
Medical History
Chief Complaint / HPI
Chief Complaint: cough
History of Present Illness:
79-year-old male with past medical history of CAD status post quadruple bypass, hypertension, hyperlipidemia, arthritis, paroxysmal atrial fibrillation on eliquis , aortic stenosis status post aortic valve replacement came to the hospital with
ongoing cough, malaise- 10 days Covid testing was positive . He was admitted for superimposed bacterial pneumonia with COVID and is being treated with antibiotics. GI was consulted since he had tarry stools yesterday. Denies any abdominal
pain/nausea/vomiting. No BMs this morning. Unable to recall whether he had an EGD before in the past.
Past Medical History
Past Medical History: Other (Arrhythmia, CAD, HTN, Hypercholesterolemia and Other (BPH, arthritis))
Past Surgical History: Other (CABG, AVR)
Social History
Tobacco: Non-Smoker
Family History
Family History: Reviewed & Not Pertinent
Allergies / Home Medications
Allergy/AdvReac Type Severity Reaction Status Date / Time
diazepam [From Valium] Allergy 'I get Verified 07/06/24 14:17
violent'
�Medication �Instructions �Recorded
finasteride 5 mg tablet 5 mg PO DAILY Urinary issue 09/05/20
tamsulosin 0.4 mg capsule 0.4 mg PO DAILY Urinary issue 09/05/20
bupropion HCl 150 mg 24 hr tablet, 150 mg PO DAILY Mental health 10/10/22
extended release
escitalopram oxalate 20 mg tablet 20 mg PO HS Mental health 10/10/22
rosuvastatin 40 mg tablet 40 mg PO HS High cholesterol 10/10/22
aspirin 81 mg tablet,delayed 81 mg PO DAILY Blood clot 11/25/22
release prevention/tx
amlodipine 5 mg tablet (Norvasc) 5 mg PO QPM Blood Pressure 07/06/24
apixaban 5 mg tablet (Eliquis) 5 mg PO BID Blood Clot 07/06/24
Prevention/Tx
benzonatate 100 mg capsule 100 mg PO TIDPRN PRN cough 07/06/24
carboxymethylcellulose sodium 0.25 1 drp BOTH EYES BIDPRN PRN dryness 07/06/24
% eye drops (TheraTears)
dextroamphetamine-amphetamine 20 20 mg PO BID STIMULENT 07/06/24
mg tablet (Adderall)
ibuprofen 200 mg capsule (Advil 400 mg PO Q6HPRN PRN mild pain 07/06/24
Liqui-Gel)
oxycodone-acetaminophen 10 mg-325 1 tab PO Q3HPRN PRN severe pain 07/06/24
mg tablet (Endocet)
phenylephrine HCl 0.5 % nasal mist 1 spray intranasal DAILYPRN PRN 07/06/24
congestion
ctxgjfqnxlqad-TX-ivhcatpbvabdy-guaifen 2 tab PO DAILYPRN PRN head pressure 07/06/24
5 mg-10 mg-325 mg-200 mg tablet
(Tylenol Cold and Flu Severe)
Review of Systems
-
All other systems: A 12 pt ROS was Negative except as stated above in HPI
Vital Signs
Temp Pulse Resp BP Pulse Ox
98.3 F 89 18 136/80 93
07/11/24 07:10 07/11/24 07:10 07/11/24 07:10 07/11/24 07:10 07/11/24 07:10
Physical Exam
Exam
Respiratory: Clear
Cardiac: S1/S2
GI: Soft, Non Tender and Normal Bowel Sounds
Neuro: AO x 3
Results
WBC 9.2 10^3/uL (4.8-10.8) 07/11/24 10:16
Hgb 12.5 g/dL (13.0-18.0) L 07/11/24 10:16
Hct 35.5 % (39.0-52.0) L 07/11/24 10:16
MCV 85.3 fL (80.0-94.0) 07/11/24 10:16
Plt Count 257 10^3/uL (130-400) 07/11/24 10:16
Absolute Neuts (auto) 6.6 10^3/uL (1.4-6.5) H 07/11/24 10:16
Sodium 135 mmol/L (135-145) 07/11/24 10:16
Potassium 3.9 mmol/L (3.5-5.1) 07/11/24 10:16
Chloride 104 mmol/L (98-107) 07/11/24 10:16
Carbon Dioxide 25 mmol/L (22-30) 07/11/24 10:16
BUN 12 mg/dl (9-20) 07/11/24 10:16
Creatinine 0.6 mg/dL (0.7-1.3) L 07/11/24 10:16
Calcium 8.3 mg/dl (8.4-10.2) L 07/11/24 10:16
Total Bilirubin 0.4 mg/dl (0.2-1.3) 07/11/24 10:16
AST 72 U/L (17-59) H 07/11/24 10:16
ALT 69 U/L (0-50) H 07/11/24 10:16
Alkaline Phosphatase 95 U/L (38-126) 07/11/24 10:16
Diagnostic Image Results:
Prior GI Procedures:
EGD: none
Colonoscopy: 04/2022
Impression: - Preparation of the colon was inadequate. Unable to
rule out small polyps.
- Diverticulosis in the sigmoid colon and in the
descending colon.
- Non-bleeding internal hemorrhoids.
- Stool in the entire examined colon.
Assessment / Plan
-
79-year-old male with history of coronary disease status post bypass, A-fib on Eliquis, hypertension, aortic stenosis s/p AVR admitted with superimposed bacterial pneumonia with underlying COVID infection. Had episodes of dark tarry stools. No
prior EGD
-- Drak stool - No BM this am. Hb stable. BUN normal Eliquis on hold . possible DD; Gastritis versus peptic ulcer disease etc.
-- PNA/ COVID
-- Afib
-- CAD
plan
ok to continue diet
Continue to monitor hemoglobin
Continue Protonix 40 mg twice daily
Okay to resume Eliquis if no further bleeding and stable Hb for 48 hours
Will hold off on EGD at this point considering recent pneumonia/COVID-recovering. If patient continues to have active GI bleeding or significant drop in hemoglobin will consider in pt eval otherwise follow up as OP
Total Time Spent with Patient (in minutes): 55
-
-
Thank you for consultation and allowing me to participate in the patient's care. Please call the telecommunications support GI physician during the after hours with any questions or concerns.
[2024-07-11 15:10] VITALS: BP 124/61
[2024-07-11 16:05] VITALS: BP 118/74; PULSE 74; O2SAT 93
[2024-07-11] MEDS: ROCEPHIN 1000 MG IV (17:03)
[2024-07-11] MEDS: STERILE WATER FOR INJECTION 10 ML IV (17:03)
[2024-07-11] MEDS: NORVASC 5 MG PO (17:03)
[2024-07-11] MEDS: VIBRAMYCIN 100 MG PO (19:38)
[2024-07-11] MEDS: TYLENOL 325 MG PO (22:15)
[2024-07-11] MEDS: LEXAPRO 20 MG PO (22:16)
[2024-07-11] MEDS: CRESTOR 40 MG PO (22:16)
[2024-07-11 23:16] VITALS: BP 128/76
[2024-07-12 06:00] VITALS: BMI 28.6
[2024-07-12 07:20] VITALS: BP 130/84
[2024-07-12 08:20] VITALS: BP 130/84
[2024-07-12] MEDS: VIBRAMYCIN 100 MG PO (09:03)
[2024-07-12] MEDS: TESSALON PERLES 200 MG PO (09:03)
[2024-07-12] MEDS: MUCINEX 1200 MG PO (09:03)
[2024-07-12] MEDS: ASPIR LOW (ENTERIC COATED) 81 MG PO (09:03)
[2024-07-12] MEDS: WELLBUTRIN XL (24 hour extended release) 150 MG PO (09:03)
[2024-07-12] MEDS: FLOMAX 0.4 MG PO (09:03)
[2024-07-12] MEDS: PROSCAR 5 MG PO (09:04)
[2024-07-12] MEDS: VISBIOME 1 CAP PO (09:04)
[2024-07-12] MEDS: ADDERALL 20 MG PO (09:04)
[2024-07-12] MEDS: PROTONIX IV 40 MG IV (09:04)
[2024-07-12] MEDS: NSS (PRESERVATIVE FREE) 10 ML IV (09:04)
[2024-07-12 10:08] LABS: % Basophils 0.5 % (0-2); % Immature Granulocytes 1.7 % (0-0.5); % Lymphocytes 18.5 % (20.5-51.1); % Neutrophils 66.3 % (42.2-75.2); Absolute Eosinophils 0.1 10^3/uL (0-0.7); Absolute Immature Granulocytes 0.1 10^3/uL (0-0.05); Absolute Lymphocytes 1.5 10^3/uL (1.2-3.4); Absolute Neutrophils 5.4 10^3/uL (1.4-6.5); Hematocrit 34.8 % (39.0-52.0); Hemoglobin 12.2 g/dL (13.0-18.0); Mean Corp Hgb Conc. 35.1 g/dL (33.0-37.0); Mean Corpuscular Hgb 29.1 pg (27.0-31.0); Mean Corpuscular Volume 83.1 fL (80.0-94.0); Mean Platelet Volume 9.7 fL (7.4-10.4); Nucleated Red Blood Cells % 0 % (-); Platelet Count 292 10^3/uL (130-400); Red Blood Cell Count 4.19 10^6/uL (4.70-6.10); Red Cell Dist. Width 13.4 % (11.5-14.5); White Blood Cell Count 8.2 10^3/uL (4.8-10.8)
[2024-07-12 10:54] LABS: ALT (SGPT) 69 U/L (0-50); AST (SGOT) 69 U/L (17-59); Albumin 2.8 g/dl (3.5-5.0); Alkaline Phosphatase 90 U/L (38-126); Blood Urea Nitrogen 13 mg/dl (9-20); Calcium 8.4 mg/dl (8.4-10.2); Carbon Dioxide 26 mmol/L (22-30); Chloride 103 mmol/L (98-107); Estimated Creatinine Clearance 93 ml/min; Glucose 98 mg/dl (70-99); Potassium 4.2 mmol/L (3.5-5.1); Sodium 134 mmol/L (135-145); Total Bilirubin 0.5 mg/dl (0.2-1.3); Total Protein 5.2 g/dl (6.3-8.2); eGFR > 60.00
--- NOTE | 2024-07-12 11:00 | W.PN.HOSP.TC ---
Today's Communication/Plan
-
d/c home
Assessment / Plan
Assessment / Plan
Suspect superimposed bacterial pneumonia with underlying COVID-19 infection
COVID-positive 07/03/2024 however symptoms started before with fatigue
covid vaccinated
CXR with PNA;procal high
Tessalon Perles, Mucinex
Off of oxygen at this point.
Melena
x2 episodes in hospital, heme positive.
Hemoglobin remains stable
GI recommended to follow-up in office
Follow-up blood work prescription provided
Patient to resume back Eliquis from tomorrow morning
Elevated Trop likely secondary to nonischemic myocardial injury
Trope peaked at 0.04
History of BPH
Periods of Acute urinary retention s/p bob; voiding trial once more ambulatory
Continue with home meds
Follows with Dr. Medina outpatient
Hyponatremia
Monitor, improving
Elevated LFTs
Monitor
History of paroxysmal A-fib
Currently in A-fib, rate controlled
Lopressor as needed
Follows with Dr. Wilburn outpatient
Continue Eliquis
CAD with history of quadruple bypass
Continue to monitor
History of aortic valve replacement
Monitor
DVT prophylaxis
SCD's
Full code
More than 30 minutes spent in discharge including
Final examination of the patient
Summarizing hospital stay
Instructions for continuing care to all relevant caregivers
Preparation of discharge records, prescriptions, and referral forms
Total time spent (in minutes): 38 mins
Anticipated Discharge: Today
Subjective/Interval History
-
Date of Service: July 12, 2024
Resting comfortably in chair
Not on oxygen
Denies any shortness of breath/cough
Had a bowel meant in the morning and was brown in color
No other reported problem
Objective Data
-
Labs:
Laboratory Results
07/12/24
09:42
WBC 8.2
Hgb 12.2 L
Hct 34.8 L
Plt Count 292
Sodium 134 L
Potassium 4.2
Chloride 103
Carbon Dioxide 26
BUN 13
Creatinine 0.6 L
Glucose 98
Calcium 8.4
Total Bilirubin 0.5
AST 69 H
ALT 69 H
Alkaline Phosphatase 90
Vital Signs:
Vital Signs
Temp Pulse Resp BP Pulse Ox
97.8 F 86 16 130/84 94
07/12/24 07:20 07/12/24 07:20 07/12/24 07:20 07/12/24 07:20 07/12/24 08:00
I&O
07/11/24 07/12/24 07/13/24
06:59 06:59 06:59
Intake Total 1820 / 1820 960 / 960
Output Total 3350 / 3350 1600 / 1600
Balance -1530 / -1530 -640 / -640
Review of Systems
-
Respiratory: Reports No Symptoms
Cardiac: Reports No Symptoms
Abdomen/GI: Reports No Symptoms
Physical Exam
-
General: No Apparent Distress and Comfortable
HEENT: Negative Oxygen
Respiratory: Clear to Auscultation
Cardiac: Regular Rhythm and S1/S2; Negative Murmur or Rub
GI: Soft, Nontender, Nondistended and Normal Bowel Sounds
Musculoskeletal: No Edema
Neuro: Awake, Alert, Oriented, No Motor Deficits and Nonfocal/Grossly Intact
Psych: Calm
--- NOTE | 2024-07-12 11:32 | CM ---
Patient has been medically cleared for discharge to home with [facility], PT/OT services. Patient has arranged for transport home.
[2024-07-12] MEDS: ROXICODONE 10 MG PO (11:40)
[2024-07-12] MEDS: TYLENOL 325 MG PO (11:40)
--- NOTE | 2024-07-12 15:03 | PN.CDI ---
CDI
- -
CDI:
Physician Documentation Request
Admit Date: 07/06/24 17:13
Dear Doctor Arsh,
Patient admitted with COVID-19 and pneumonia.
07/11 PN, 'Melena x2 episodes in hospital, heme positive'
07/06 Hgb 15.1
07/11 Hgb 12.2
Based on the above, please clarify in your progress note which of the following is the most likely diagnosis you are evaluating, monitoring and/or treating?
Acute blood loss anemia
insignificant abnormal lab findings
Other
Use of terms such as suspected, likely, concern for, or probable (associated with a specific diagnosis that is being evaluated, monitored, or treated as if it exists) are acceptable and can be coded in the inpatient setting, when documented at the
time of discharge.
Thank you,
Jennifer ODELL,RN,CCDS
CDI Specialist
Available via [place] text
Please use your independent medical judgment in providing your response.
--- NOTE | 2024-07-12 15:15 | PN.CDI ---
CDI
- -
CDI:
Physician Documentation Request
Admit Date: 07/06/24 17:13
Dear Doctor Arsh,
Patient admitted with COVID-19 and pneumonia.
07/10 PN, 'Black stool overnight with heme + stool 07/08 .....another episode 07/09....Currently Eliquis on hold.'
07/11 GI consult, 'Reason for Consultation: Melena.'
Please clarify the likely relationship between these conditions:
Yes, melena is associated with/ enhanced by Eliquis.
No, melena is not associated with/ enhanced by Eliquis but it is due to ___. (Please specify)
Unable to determine
Use of terms such as suspected, likely, concern for, or probable (associated with a specific diagnosis that is being evaluated, monitored, or treated as if it exists) are acceptable and can be coded in the inpatient setting, when documented at the
time of discharge.
Thank you,
Jennifer ODELL,RN,CCDS
CDI Specialist
Available via [place] text
Please use your independent medical judgment in providing your response.
--- NOTE | 2024-07-13 07:27 | W.DCSUMMARY ---
Discharge Summary
Discharge Data
Date of Admission: 07/06/24
Date of Discharge: 07/12/24
-
Pending Results: No
Hospital Course
Discharging Physician : Dr Jayden Johansen
Disposition : Home
Primary care physician : Dr Iris Evans
Principal Discharge diagnosis :
Community-acquired infection with superimposed bacterial pneumonia
Gastrointestinal bleed with melena
Nonischemic myocardial injury
Elevated liver enzymes
Hyponatremia
Chronic Discharge diagnosis :
Benign prostatic hyperplasia
Paroxysmal atrial fibrillation
Coronary disease with history of bypass
Aortic valve replacement
Hospital Course :
Patient is a 79-year-old male with above-mentioned past medical history comes to ER for having new cough/malaise. Patient was tested for COVID at home roughly 10 days back and was tested positive. Patient symptoms were getting worse and was
instructed by primary care physician to come to ER for further evaluation. Chest x-ray in ER showing parenchymal changes and there was clinically suspicion of superimposed bacterial pneumonia with elevated procalcitonin. Patient was started on
antibiotics. Patient did not require significant oxygen support. Patient was provided prescription for Omnicef//doxycycline at discharge.
Patient also developed 2 episodes of melena and which was tested positive for occult blood. GI was involved in care who recommended for patient to be managed conservatively. Patient Eliquis was held with resolution of further melena. Patient to
hold Eliquis another 24-hour post discharge before resumption and plan to follow-up with GI in office.
Post medical stabilization patient was discharged home.
Important imaging findings :
None
Procedure findings :
None
Discharge Plan
-
Patient Disposition: Home with Home Care
Discharge Diagnosis/Procedures: Covid 19 viral infection, superimposed bacterial Pneumonia, Melena
Condition: Fair
Diet: Low Cholesterol
Activity: As tolerated
Driving Restrictions: No driving for 24 hours
Bathing Restrictions: OK to Shower
Blood Work: CBC in 1 week
Activity Restrictions/Additional Instructions:
Please f/u with Dr Jimenez (lumber puller) if continues to have black stool
Referrals:
Kinsey Jimenez MD [Active] -
Iris Evans PA-C [Family Provider] - in one week
Additional Discharge Medication Instructions: Avoid takin NSAID - can cause GI bleed
Prescriptions:
New
pantoprazole 40 mg tablet,delayed release (DR/EC)
40 mg PO BID Qty: 60 0RF
cefdinir 300 mg capsule
300 mg PO BID 2 Days Qty: 4 0RF
doxycycline hyclate 100 mg capsule
100 mg PO BID Qty: 4 0RF
Continued
tamsulosin 0.4 MG capsule
0.4 mg PO DAILY
finasteride 5 MG tablet
5 mg PO DAILY
escitalopram oxalate 20 mg Tablet
20 mg PO HS
rosuvastatin 40 mg Tablet
40 mg PO HS
bupropion HCl 150 mg Tablet Extended Release 24 Hr
150 mg PO DAILY
aspirin 81 MG tablet,delayed release (DR/EC)
81 mg PO DAILY
amlodipine [Norvasc] 5 mg Tablet
5 mg PO QPM
TheraTears 0.25 % Drops
1 drp BOTH EYES BIDPRN PRN (Reason: dryness)
dextroamphetamine-amphetamine [Adderall] 20 mg Tablet
20 mg PO BID
phenylephrine HCl 0.5 % Mist
1 spray INTRANASAL DAILYPRN PRN (Reason: congestion)
oxycodone-acetaminophen [Endocet] 10-325 mg tablet
1 tab PO Q3HPRN MDD 8 tablets PRN (Reason: severe pain)
benzonatate 100 mg Capsule
100 mg PO TIDPRN PRN (Reason: cough)
Tylenol Cold and Flu Severe [phone] mg Tablet
2 tab PO DAILYPRN PRN (Reason: head pressure)
Held
Eliquis 5 mg Tablet
5 mg PO BID
Hold Instructions: Resume on 07/13/24.
Discontinued
ibuprofen [Advil Liqui-Gel] 200 mg Capsule
400 mg PO Q6HPRN PRN (Reason: mild pain)
Discharge Orders:
Discharge Patient (As Directed); Ordered 07/12/24
Ordered By: Jayden Johansen
Discharge Date and Time
Discharge Date/Time: 07/12/24 13:47
Print Language: ALGERIAN
--- NOTE | 2024-07-23 10:07 | PN.CDI ---
CDI
- -
CDI:
Physician Documentation Request
Admit Date: 07/06/24 17:13
Dear Doctor Eleno,
Patient admitted with pneumonia.
07/12 PN, 'Suspect superimposed bacterial pneumonia with underlying COVID-19 infection.'
Please clarify the likely relationship between these conditions:
Yes, superimposed bacterial pneumonia is related to/associated with/due to COVID -19 infection.
No, superimposed bacterial pneumonia is not related to/associated with/due to COVID-19 infection but it is due to ___. (Please specify)
Unable to determine
Use of terms such as suspected, likely, concern for, or probable (associated with a specific diagnosis that is being evaluated, monitored, or treated as if it exists) are acceptable and can be coded in the inpatient setting, when documented at the
time of discharge.
Thank you,
Jennifer RITTERN,RN,CCDS
CDI Specialist
Available via [place] text
Please use your independent medical judgment in providing your response.
== END 2024-07-12 13:47 | disposition home health service (06) | DRG 193 ==
LOC: 2 NORTH 17:13
PROVIDERS: ADMITTING PHYSICIAN Internal Medicine; ATTENDING PHYSICIAN Hospitalist; CONSULT PHYSICIAN Internal Medicine Gastroenterology; EMERGENCY PHYSICIAN Emergency Medicine; FAMILY PHYSICIAN Physician Assistant
DX: J15.9 Unspecified bacterial pneumonia (principal); U07.1 COVID-19; E87.1 Hypo-osmolality and hyponatremia; I5A Non-ischemic myocardial injury (non-traumatic); K92.1 Melena; I25.10 Atherosclerotic heart disease of native coronary artery without angina pectoris; I10 Essential (primary) hypertension; E78.00 Pure hypercholesterolemia, unspecified; I35.0 Nonrheumatic aortic (valve) stenosis; I48.0 Paroxysmal atrial fibrillation; N40.0 Benign prostatic hyperplasia without lower urinary tract symptoms; Z95.2 Presence of prosthetic heart valve; Z95.1 Presence of aortocoronary bypass graft; Z79.82 Long term (current) use of aspirin; Z79.01 Long term (current) use of anticoagulants
CPT/HCPCS: 71046; 80053; 83735; 83930; 83935; 84145; 84300; 84484; 85014; 85018; 85025; 87324; 87449; 93005; 94640; 96365; 96367; 96375; 97110; 97116; 97162; 97166; 97530; 99285

== ENCOUNTER → 2024-07-21 18:50 | Outpatient (REF) | payer MEDICARE, OTHER, SELFPAY ==
[2024-07-21 19:07] LABS: % Basophils 1.4 % (0-2); % Eosinophils 1.8 % (0-6); % Immature Granulocytes 0.2 % (0-0.5); % Lymphocytes 38.3 % (20.5-51.1); % Monocytes 10.4 % (1.7-9.3); % Neutrophils 47.9 % (42.2-75.2); Absolute Basophils 0.1 10^3/uL (0-0.2); Absolute Eosinophils 0.1 10^3/uL (0-0.7); Absolute Lymphocytes 1.9 10^3/uL (1.2-3.4); Absolute Monocytes 0.5 10^3/uL (0.1-0.6); Absolute Neutrophils 2.4 10^3/uL (1.4-6.5); Hematocrit 35.6 % (39.0-52.0); Hemoglobin 11.8 g/dL (13.0-18.0); Mean Corp Hgb Conc. 33.1 g/dL (33.0-37.0); Mean Corpuscular Hgb 28.9 pg (27.0-31.0); Mean Platelet Volume 10.7 fL (7.4-10.4); Nucleated Red Blood Cells % 0 % (-); Platelet Count 278 10^3/uL (130-400); Red Blood Cell Count 4.09 10^6/uL (4.70-6.10); White Blood Cell Count 4.9 10^3/uL (4.8-10.8)
== END ==
LOC: CLAB 18:50
PROVIDERS: ATTENDING PHYSICIAN Physician Assistant
DX: K92.1 Melena (principal); U07.1 COVID-19
CPT/HCPCS: 36415; 85025

== ENCOUNTER → 2024-08-25 12:34 | Outpatient (REF) | payer MEDICARE, OTHER, SELFPAY ==
[2024-08-25 15:54] LABS: % Basophils 0.9 % (0-2); % Immature Granulocytes 0.3 % (0-0.5); % Lymphocytes 30.7 % (20.5-51.1); % Monocytes 9.5 % (1.7-9.3); % Neutrophils 55.6 % (42.2-75.2); Absolute Basophils 0.1 10^3/uL (0-0.2); Absolute Eosinophils 0.2 10^3/uL (0-0.7); Absolute Monocytes 0.6 10^3/uL (0.1-0.6); Absolute Neutrophils 3.7 10^3/uL (1.4-6.5); Hematocrit 39.4 % (39.0-52.0); Hemoglobin 13.4 g/dL (13.0-18.0); Mean Corpuscular Hgb 29.3 pg (27.0-31.0); Mean Corpuscular Volume 86.2 fL (80.0-94.0); Mean Platelet Volume 11.2 fL (7.4-10.4); Nucleated Red Blood Cells % 0 % (-); Platelet Count 179 10^3/uL (130-400); Red Blood Cell Count 4.57 10^6/uL (4.70-6.10); Red Cell Dist. Width 12.8 % (11.5-14.5); White Blood Cell Count 6.7 10^3/uL (4.8-10.8)
[2024-08-25 16:02] LABS: ALT (SGPT) 55 U/L (0-50); AST (SGOT) 50 U/L (17-59); Albumin 4.3 g/dl (3.5-5.0); Alkaline Phosphatase 92 U/L (38-126); Blood Urea Nitrogen 19 mg/dl (9-20); Calcium 9.3 mg/dl (8.4-10.2); Carbon Dioxide 29 mmol/L (22-30); Chloride 99 mmol/L (98-107); Glucose 105 mg/dl (70-99); Iron 72 ug/dl (49-181); Potassium 4.3 mmol/L (3.5-5.1); Sodium 139 mmol/L (135-145); Total Bilirubin 0.8 mg/dl (0.2-1.3); Total Protein 6.8 g/dl (6.3-8.2); eGFR > 60.00
[2024-08-25 16:11] LABS: Percent Saturation 21 % (20-50); Total Iron Binding Capacity 339 ug/dl (261-462)
[2024-08-25 16:37] LABS: Ferritin 56.8 ng/ml (17.9-464.0)
== END ==
LOC: HWLAB 12:34
PROVIDERS: ATTENDING PHYSICIAN Internal Medicine Cardiovascular Disease; FAMILY PHYSICIAN Physician Assistant
DX: J15.9 Unspecified bacterial pneumonia (principal); Z09 Encounter for follow-up examination after completed treatment for conditions other than malignant neoplasm; U07.1 COVID-19; K92.1 Melena; D64.9 Anemia, unspecified; I25.10 Atherosclerotic heart disease of native coronary artery without angina pectoris; I48.19 Other persistent atrial fibrillation; Z95.5 Presence of coronary angioplasty implant and graft; E78.2 Mixed hyperlipidemia; I10 Essential (primary) hypertension
CPT/HCPCS: 36415; 71046; 80053; 82728; 83540; 83550; 85025

== ENCOUNTER 2024-09-13 12:00 | Inpatient (IN) | payer MEDICARE, OTHER, SELFPAY ==
[2024-09-13] VITALS (10 sets, daily range): BP systolic 144–200; BP diastolic 74–113; BMI 30.2
--- NOTE | 2024-09-13 12:26 | W.PN.CD ---
Addendum entered and electronically signed by Paul Chavez MD (Ellie) 09/13/24 15:29:
I saw and examined the patient.
The INTERNATIONAL MARKETING MANAGER's note was reviewed and I agree with the note.
Comment: 79-year-old man with premature CAD s/p CABG/AVR in 2022, HFpEF, dyslipidemia, and hypertension who presents with persistent atrial fibrillation for dofetilide loading. Confirmed no missed doses of Eliquis. Continue dofetilide loading and
will see if he needs cardioversion during this admission.
Original Note:
Today's Communication / Plan
-
This is the summary. See scanned H&P.
Initiation of dofetilide loading.
Impression / Plan
-
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 This has been persisting since his hospitalization with COVID-19.
The plan is for dofetilide loading and cardioversion if necessary.
Nurse Technician: Dr. Wilburn
PLAN:
Persistent atrial fibrillation
-Persistent since COVID-19 infection
-He had been on dofetilide preoperatively (AVR/CABG)
-Dofetilide loading per protocol
-Denies missed doses of Eliquis
-DCCV if necessary after four to five doses
HFpEF, chronic
-Denies shortness of breath
-Weight is stable
-Consider furosemide
Coronary artery disease
-Stable without chest pain
-We can consider discontinuing aspirin, will defer to primary jumpbasting lining baster
-Premature onset (age 34) with multiple PCI's (1983, 1994, 2003, 2013)
-CABG x4 (in situ FARR�LAD, AO to R SVG to RI sequenced to OM, AO to R SVG to RPDA, Dr. Chase, 2022)
Status post aortic valve replacement (bioprosthetic AVR, 25 mm Inspiris) with patch reinforcement of aortic valve annulus at membranous septum
-Update echocardiogram
Hypertension, follow, amlodipine placed on hold prior to admission
Dyslipidemia, continue rosuvastatin 40 mg daily
COVID-19 infection, 07/03/2024
SUBJECTIVE:
Denies CP and SOB. Some palps.
Physical Exam
Physical Exam
Constitutional: No acute distress and Comfortable
EENT: Anicteric and Moist mucous membranes
Cardiovascular: Pedal edema is absent, Rhythm/rate is irregular, S1S2 is normal and Murmur/rub/gallop absent
Respiratory: Respiratory effort normal and Lungs clear to auscul.
GI: Soft, Distention absent, Flat and Non tender
Neuro/Psych: AO x 3
Other: Skin (warm and dry)
Data Reviewed
-
Date of Service: September 13, 2024
--- NOTE | 2024-09-13 13:34 | W.CARD.TIKOS ---
Initiate Tikosyn
-
I verify that the patient has not taken any verapamil (Isoptin/Calan), ketoconazole (Nizoral), cimetidine (Tagamet), trimethoprim (Trimpex), trimethoprim/sulfamethoxazole (Bactrim), megesterol (Megace), prochlorperazine (Compazine),
hydrochlorothiazide (HCTZ), dolutegravir (Tivicay) or any Class I or Class III anti-arrhythmic within the last three days
AND
I verify that the patient has not taken amiodarone within the last THREE months, or that the patient's amiodarone plasma concentration is <0.3 mcg/mL.
I have assessed the baseline QTc interval (using QT for heart rate less than 60 bpm) and deemed the patient is appropriate for Dofetilide therapy. I understand that Tikosyn is contraindicated if the QTc is >440msec (500msec in patients with
ventricular conduction abnormalities).
Baseline QTc (in msec): 440
Reason for Administration with Prolonged QTc: Other Atrial Arrhythmia
Ordering Physician: Kosta Wilburn
[2024-09-13] MEDS: TIKOSYN 500 MCG PO (14:13)
--- NOTE | 2024-09-13 14:19 | CM ---
Pricing on Dofetilide under the patient's [facility] is $2.95 for a 30 day supply. CM to follow the patients dosage to see if it is available for the patient at his pharmacy.
--- NOTE | 2024-09-13 15:35 | PTCARENOTE ---
Rec'd pt as an admission from cardiology office outpatient for Tikosyn loading. Pt on TELE monitor in afib with hr in 70-80's, VSS, and pt AAO*3. EKG complete for QTc monitoring. First dose of Tikosyn given at 1413. Pt claims he 'doesn't feel
when he is in AFIB' and denies any pain or palpitations. EKG ordered for 1613 per protocol. Pt oriented to unit and resting with call vaughn in reach.
--- NOTE | 2024-09-13 15:46 | CM ---
Chart reviewed. Patient is independent of ADLS, lives with his in 1 [facility], 2 LANA, 0 DME. Plan is for the patient to return home. CM to follow
[2024-09-13] MEDS: ROXICODONE 10 MG PO ×2 (16:28→20:52)
[2024-09-13] MEDS: PROTONIX 40 MG PO (20:28)
[2024-09-13] MEDS: ELIQUIS 5 MG PO (20:28)
[2024-09-13] MEDS: ADDERALL 20 MG PO (20:28)
[2024-09-13] MEDS: LEXAPRO 20 MG PO (22:30)
[2024-09-13] MEDS: CRESTOR 40 MG PO (22:30)
[2024-09-14] VITALS (7 sets, daily range): BP systolic 144–177; BP diastolic 84–104; BMI 29.8
--- NOTE | 2024-09-14 00:13 | PTCARENOTE ---
Received patient at change of shift. Afib on the monitor, HR in the 70s. BP 193/11 with no symptoms, order for prn hydralazine obtained from Dr Ford. BP retaken at 177/87, outside of prn hydralazine parameters. Hydralazine not given. No
complaints from pt at this time, call vaughn within reach.
[2024-09-14] MEDS: TIKOSYN 500 MCG PO ×3 (00:57→22:38)
[2024-09-14] MEDS: ROXICODONE 10 MG PO ×5 (01:02→19:45)
[2024-09-14] MEDS: ADDERALL 20 MG PO ×2 (08:38→19:46)
[2024-09-14] MEDS: ASPIR LOW (ENTERIC COATED) 81 MG PO (08:38)
[2024-09-14] MEDS: FLOMAX 0.4 MG PO (08:38)
[2024-09-14] MEDS: PROSCAR 5 MG PO (08:38)
[2024-09-14] MEDS: WELLBUTRIN XL (24 hour extended release) 150 MG PO (08:38)
[2024-09-14] MEDS: PROTONIX 40 MG PO ×2 (08:38→19:45)
[2024-09-14] MEDS: ELIQUIS 5 MG PO ×2 (08:38→19:46)
--- NOTE | 2024-09-14 08:40 | PTCARENOTE ---
Assumed care of pt from prev nsg shift; AAOX3 w/no c/o CP or SOB. Pt does c/o 09/02 neck, upper back & joint pain which is chronic for him. PRN PO Oxycodone administered as ordered. Pt's VS stable w/HR in the 70's & BP elevated at 160/93. AM cardiac
meds administered as ordered. Pt is Afib on telemetry monitoring. Pt w/call vaughn within reach & plan of care ongoing.
--- NOTE | 2024-09-14 11:57 | CM ---
Chart reviewed. Patient is independent of ADLS, lives with his in a 1 STH, 2 LANA, 0 DME. CM to followup with the pharmacy to see if the dose is available once patient is ready for discharge. CM to follow
[2024-09-14] MEDS: CRESTOR 40 MG PO (21:34)
[2024-09-14] MEDS: LEXAPRO 20 MG PO (21:34)
--- NOTE | 2024-09-14 21:39 | PTCARENOTE ---
Pt. received at change of shift. Pt. seen and assessed in room. Pt. AOx3, tele reading Afib in the 50s-60s. Pt. complaining of chronic neck pain. PRN oxycodone given, pt. pain reassessed pt stating the pain went down from an 8 to a 4. RN verified
with prosthetics lab technician if 11pm tikosyn was okay to give, EKG done, QT 478. Tikosyn to be given at 11pm per order. RN explains plan of care to patient, Pt. verbalizes understanding. Call vaughn within reach. Continuing to monitor at this time.
[2024-09-15 02:31] VITALS: BP 155/89
[2024-09-15 02:33] VITALS: BP 155/89
[2024-09-15 02:34] VITALS: BMI 29.8
[2024-09-15] MEDS: ROXICODONE 10 MG PO ×4 (05:50→23:38)
[2024-09-15 07:19] VITALS: BP 165/79
--- NOTE | 2024-09-15 08:00 | PTCARENOTE ---
Assumed care of pt from prev nsg shift; AAOX3 w/no c/o CP or SOB. Pt does c/o 07/03 neck, upper back & joint pain which is chronic for him. PRN PO Oxycodone last given at 0550; explained to pt when he could have PRN pain medicine again & offered PRN
Tylenol for now. Pt declined stated 'he'd wait for Oxy'. Pt's VS stable w/HR in the 60's & BP elevated at 165/79. AM cardiac meds administered as ordered. Pt is Afib on telemetry monitoring. Pt w/call vaughn within reach & plan of care ongoing.
[2024-09-15 08:27] VITALS: BMI 29.3
[2024-09-15] MEDS: WELLBUTRIN XL (24 hour extended release) 150 MG PO (08:32)
[2024-09-15] MEDS: PROTONIX 40 MG PO ×2 (08:32→19:47)
[2024-09-15] MEDS: ASPIR LOW (ENTERIC COATED) 81 MG PO (08:32)
[2024-09-15] MEDS: ADDERALL 20 MG PO ×2 (08:32→19:47)
[2024-09-15] MEDS: ELIQUIS 5 MG PO ×2 (08:32→19:47)
[2024-09-15] MEDS: FLOMAX 0.4 MG PO (08:32)
[2024-09-15] MEDS: PROSCAR 5 MG PO (08:32)
[2024-09-15] MEDS: TIKOSYN 500 MCG PO ×2 (09:01→21:11)
--- NOTE | 2024-09-15 09:55 | W.PN.CD ---
Today's Communication / Plan
-
NPO after MN for cardioversion tomorrow
Add Valsartan and Furosemide for HTN/edema/suspected HFpEF
Later will add MRA/SGLT2-I, not all at once
Impression / Plan
-
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 This has been persisting since his hospitalization with COVID-19.
The plan is for dofetilide loading and cardioversion if necessary.
Student Specialist: Dr. Wilburn
Persistent atrial fibrillation
-Persistent since COVID-19 infection
-He had been on dofetilide preoperatively (AVR/CABG)
-Dofetilide loading per protocol
-Denies missed doses of Eliquis
-DCCV tomorrow
HFpEF, chronic
-Denies shortness of breath
-Weight is stable
-Trace to mild edema => stay off amlodipine, add valsartan/Lasix, later SGLT2-I and MRA
Coronary artery disease
-Stable without chest pain
-We can consider discontinuing aspirin, for now will leave on ASA
-Premature onset (age 34) with multiple PCI's (1983, 1994, 2003, 2013)
-CABG x4 (in situ FARR�LAD, AO to R SVG to RI sequenced to OM, AO to R SVG to RPDA, Dr. Chase, 2022)
Status post aortic valve replacement (bioprosthetic AVR, 25 mm Inspiris) with patch reinforcement of aortic valve annulus at membranous septum
-Updated echocardiogram this admit is good
Hypertension, follow, amlodipine placed on hold prior to admission
Dyslipidemia, continue rosuvastatin 40 mg daily
COVID-19 infection, 07/03/2024
SUBJECTIVE:
Denies CP and SOB. Some palps.
Physical Exam
Vital Signs/Labs
Vital Signs
Temp Pulse Resp BP Pulse Ox
97.8 F 61 18 165/79 97
09/15/24 07:21 09/15/24 07:19 09/15/24 07:21 09/15/24 07:19 09/15/24 07:21
09/14/24 09/15/24 09/16/24
06:59 06:59 06:59
Actual Weight 83.6 kg 83.7 kg 82.4 kg
Physical Exam
Constitutional: No acute distress
EENT: Anicteric
Cardiovascular: Rhythm/rate is irregular, Pedal edema present (tr to 1+) and S1S2 is normal
Respiratory: Respiratory effort normal and Lungs clear to auscul.
GI: Soft and Distention absent
Neuro/Psych: AO x 3
Data Reviewed
-
Date of Service: September 15, 2024
--- NOTE | 2024-09-15 10:46 | CM ---
Chart reviewed. Patient is independent of ADLS, lives with his in a 1 STH, 2 LANA, 0 DME. Patient still remains in afib, if patient does not covert by tomorrow plan is cardioversion. CM will follow up with the patient's pharmacy to check on
Dofetilide stock. Plan is for the patient to return home. CM to follow
[2024-09-15 11:17] VITALS: BP 126/64
[2024-09-15] MEDS: DIOVAN 160 MG PO (11:20)
[2024-09-15] MEDS: LASIX 20 MG PO (11:20)
[2024-09-15 15:45] VITALS: BP 147/75
[2024-09-15] MEDS: TYLENOL 325 MG PO ×2 (15:50→23:39)
[2024-09-15 19:56] VITALS: BP 159/93
[2024-09-15] MEDS: LEXAPRO 20 MG PO (21:11)
[2024-09-15] MEDS: CRESTOR 40 MG PO (21:11)
[2024-09-16 00:29] VITALS: BP 166/99
--- NOTE | 2024-09-16 01:05 | PTCARENOTE ---
Received patient at change of shift. Afib on the monitor, HR in the 60s. Pt complains of 8/10 chronic neck pain, PRN pain medications administered as per JAN. Discussed NPO diet after midnight with pt, pt verbalizes understanding. Call vaughn within
reach.
[2024-09-16 04:01] VITALS: BP 166/93
[2024-09-16] MEDS: ROXICODONE 10 MG PO ×2 (04:06→08:39)
[2024-09-16] MEDS: TYLENOL 325 MG PO ×2 (04:06→08:38)
[2024-09-16 08:25] VITALS: BP 149/93
[2024-09-16] MEDS: TIKOSYN 500 MCG PO (08:27)
[2024-09-16] MEDS: ELIQUIS 5 MG PO (08:27)
[2024-09-16] MEDS: DIOVAN 160 MG PO (08:29)
[2024-09-16] MEDS: ADDERALL 20 MG PO (08:29)
[2024-09-16] MEDS: ASPIR LOW (ENTERIC COATED) 81 MG PO (08:30)
[2024-09-16] MEDS: PROTONIX 40 MG PO (08:31)
[2024-09-16 08:40] VITALS: BMI 29.2
--- NOTE | 2024-09-16 09:15 | PTCARENOTE ---
Assumed care of pt from night RN. Pt received awake and alert, Ox3. VSS, CM shows AF 70's, POX 96% on RA. Pt remains NPO for ARIEL/CV. Roxicodone and Tylenol given for 06/02 chronic neck pain as per JAN. Report given to CL RN.
--- NOTE | 2024-09-16 09:45 | ITS.CL.CARDI ---
[facility] - Cardioversion
Cardioversion
Procedure Report:
Date of Procedure: September 16 2024
Procedure: Cardioversion
Indication: Symptomatic atrial fibrillation
Performing Physician: Gavin Soria DO, FACC
Technique: The patient was brought to the holding area. Signed informed consent was obtained. A time out was called and performed. The patient was anesthetized by the anesthesia service. Anticoagulation status was reviewed and appropriate. R2 pads
were placed anteriorly and posteriorly. A 200 J synchronized biphasic shock that was unsuccessful in converting to sinus rhythm. He then received a second biphasic shock of 300 J that restored normal sinus rhythm without significant bradycardia.
There were no complications.
Conclusion: Uncomplicated cardioversion from atrial fibrillation to sinus rhythm.
Recommendation: Routine post cardioversion care. Continue rate and cost analyst anticoagulation.
--- NOTE | 2024-09-16 11:01 | CM ---
Chart reviewed. Patient was cardioverted into NSR. I confirmed with the patient's [facility] and they do have dofetilide 500mcq in stock. I notified patient's nurse of the 3 day supply to take home. Plan is for the patient to return
home. CM to follow
[2024-09-16] MEDS: FLOMAX 0.4 MG PO (11:12)
[2024-09-16] MEDS: WELLBUTRIN XL (24 hour extended release) 150 MG PO (11:12)
[2024-09-16] MEDS: LASIX 20 MG PO (11:12)
[2024-09-16] MEDS: PROSCAR 5 MG PO (11:12)
[2024-09-16 11:21] VITALS: BP 151/95
--- NOTE | 2024-09-16 14:13 | W.PN.CD ---
Today's Communication / Plan
-
s/p successful DCCV and tikosyn load
qTC stable
ok for discharge
Impression / Plan
-
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 This has been persisting since his hospitalization with COVID-19.
He is status post dofetilide loading and cardioversion today with return to sinus rhythm.
Persistent atrial fibrillation, now sinus rhythm status post dofetilide load and cardioversion 09/16
-Persistent since COVID-19 infection
-He had been on dofetilide preoperatively (AVR/CABG)
-Denies missed doses of Eliquis
-qTC after 5 doses of dofetilide is acceptable (462 ms)
HFpEF, chronic
-Denies shortness of breath
-Weight is stable
-Trace to mild edema => stay off amlodipine,cont. valsartan/Lasix, later SGLT2-I and MRA
Coronary artery disease
-Stable without chest pain
-We can consider discontinuing aspirin now that on xarelto, for now will leave on ASA
-Premature onset (age 34) with multiple PCI's (1983, 1994, 2003, 2013)
-CABG x4 (in situ FARR�LAD, AO to R SVG to RI sequenced to OM, AO to R SVG to RPDA, Dr. Chase, 2022)
Status post aortic valve replacement (bioprosthetic AVR, 25 mm Inspiris) with patch reinforcement of aortic valve annulus at membranous septum
-Updated echocardiogram this admit is good
Hypertension, follow, amlodipine placed on hold prior to admission
Dyslipidemia, continue rosuvastatin 40 mg daily
COVID-19 infection, 07/03/2024
SUBJECTIVE:
Denies CP and SOB. Looking forward to discharge.
Physical Exam
Vital Signs/Labs
Vital Signs
Temp Pulse Resp BP Pulse Ox
37.1 C 67 20 151/95 96
09/16/24 11:18 09/16/24 11:21 09/16/24 11:18 09/16/24 11:21 09/16/24 11:21
09/15/24 09/16/24 09/17/24
06:59 06:59 06:59
Actual Weight 83.7 kg 82.4 kg 81.9 kg
Physical Exam
Constitutional: No acute distress, Comfortable and Confusion
Cardiovascular: Rhythm & rate is regular
Respiratory: Respiratory effort normal
Neuro/Psych: Alert, Oriented and AO x 3
Data Reviewed
-
Date of Service: September 16, 2024
EKG: Tracing Personally Visualized and interpreted
Labs: Labs Reviewed by me
[2024-09-16 15:35] VITALS: BP 141/76
--- NOTE | 2024-09-16 15:40 | W.DS.TRANS ---
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
-
Discharge Instructions:
Sleep Apnea Risk Intermediate
Discharge Diagnosis/Procedures Atrial fibrillation s/p cardioversion
Diet Low Cholesterol,Low Fat,Restrict fluids to 64 oz
,2 Gram Sodium
Activity As tolerated
Driving Restrictions No driving for 24 hours
Blood Work BMP 1 week- slip electronically sent to
[facility]
Specialty Instructions Weigh Daily
Instructions:
Stand-Alone Forms:
Changes to Home Medications: Yes
Discharge Medications:
DC Medications w/original date entered in [employer]
finasteride 5 mg tablet 5 mg PO DAILY Urinary issue 09/05/20
tamsulosin 0.4 mg capsule 0.4 mg PO DAILY Urinary issue 09/05/20
bupropion HCl 150 mg 24 hr tablet, extended release 150 mg PO DAILY Mental health 10/10/22
escitalopram oxalate 20 mg tablet 20 mg PO HS Mental health 10/10/22
rosuvastatin 40 mg tablet 40 mg PO HS High cholesterol 10/10/22
aspirin 81 mg tablet,delayed release 81 mg PO DAILY Blood clot prevention/tx 11/25/22
apixaban 5 mg tablet (Eliquis) 5 mg PO BID Blood Clot Prevention/Tx 07/06/24
benzonatate 100 mg capsule 100 mg PO TIDPRN PRN cough 07/06/24
carboxymethylcellulose sodium 0.25 % eye drops (TheraTears) 1 drp BOTH EYES BIDPRN PRN dryness 07/06/24
dextroamphetamine-amphetamine 20 mg tablet (Adderall) 20 mg PO BID STIMULENT 07/06/24
oxycodone-acetaminophen 10 mg-325 mg tablet (Endocet) 1 tab PO Q3HPRN PRN severe pain 07/06/24
phenylephrine HCl 0.5 % nasal mist 1 spray intranasal DAILYPRN PRN congestion 07/06/24
aeivgkaibujgp-UQ-axfumzznonovs-guaifen 5 mg-10 mg-325 mg-200 mg tablet (Tylenol Cold and Flu Severe) 2 tab PO DAILYPRN PRN head pressure 07/06/24
pantoprazole 40 mg tablet,delayed release 40 mg PO BID #60 tabs 07/12/24
dofetilide 500 mcg capsule 500 mcg PO Q12H #60 caps 09/16/24
furosemide 20 mg tablet 20 mg PO DAILY #30 tabs 09/16/24
valsartan 160 mg tablet 160 mg PO DAILY #30 tabs 09/16/24
Home Medication Changes
Stop amlodipine. Add dofetilide, furosemide, and valsartan.
Pending Results: No
--- NOTE | 2024-09-16 17:27 | PTCARENOTE ---
All D/C info reviewed with pt and spouse, all questions answered. Pt d/c'd home with spouse.
== END 2024-09-16 17:28 | disposition home or self-care (01) | DRG 309 ==
LOC: IVU 12:00
PROVIDERS: Nuclear Medicine Nuclear Cardiology; ADMITTING PHYSICIAN Internal Medicine Cardiovascular Disease
PROC: 5A2204Z Restoration of Cardiac Rhythm, Single (ICD-10-PCS; 2024-09-16)
DX: I48.19 Other persistent atrial fibrillation (principal); I50.32 Chronic diastolic (congestive) heart failure; I25.10 Atherosclerotic heart disease of native coronary artery without angina pectoris; E78.2 Mixed hyperlipidemia; I11.0 Hypertensive heart disease with heart failure; G47.33 Obstructive sleep apnea (adult) (pediatric); Z79.01 Long term (current) use of anticoagulants; Z79.82 Long term (current) use of aspirin; Z79.899 Other long term (current) drug therapy; Z86.16 Personal history of COVID-19; Z95.3 Presence of xenogenic heart valve; Z95.1 Presence of aortocoronary bypass graft; Z82.49 Family history of ischemic heart disease and other diseases of the circulatory system; Z88.8 Allergy status to other drugs, medicaments and biological substances
CPT/HCPCS: 92960; 93005; 93306

== ENCOUNTER → 2024-09-23 17:01 | Outpatient (REF) | payer MEDICARE, OTHER, SELFPAY ==
[2024-09-23 17:54] LABS: ALT (SGPT) 51 U/L (0-50); AST (SGOT) 44 U/L (17-59); Albumin 4.7 g/dl (3.5-5.0); Alkaline Phosphatase 89 U/L (38-126); Blood Urea Nitrogen 18 mg/dl (9-20); Calcium 9.3 mg/dl (8.4-10.2); Carbon Dioxide 30 mmol/L (22-30); Chloride 97 mmol/L (98-107); Glucose 105 mg/dl (70-99); Sodium 141 mmol/L (135-145); Total Bilirubin 0.9 mg/dl (0.2-1.3); Total Protein 7.5 g/dl (6.3-8.2); eGFR > 60.00
== END ==
LOC: REG 17:01
PROVIDERS: ATTENDING PHYSICIAN Internal Medicine Cardiovascular Disease; FAMILY PHYSICIAN Physician Assistant
DX: I50.32 Chronic diastolic (congestive) heart failure (principal); I48.0 Paroxysmal atrial fibrillation; I25.10 Atherosclerotic heart disease of native coronary artery without angina pectoris; I48.19 Other persistent atrial fibrillation; Z95.5 Presence of coronary angioplasty implant and graft; I10 Essential (primary) hypertension
CPT/HCPCS: 36415; 80048; 80053

== ENCOUNTER 2024-09-23 18:07 | Emergency (ER) | payer MEDICARE, OTHER, SELFPAY ==
[2024-09-23 18:10] VITALS: BP 146/82
[2024-09-23 19:44] VITALS: BP 167/79
[2024-09-23 19:45] VITALS: BMI 29.8
--- NOTE | 2024-09-23 19:49 | ED.GENMED ---
History of Present Illness
General
Chief Complaint: Swelling
Source: patient
Exam Limitations: none
Time Seen by Provider: 09/23/24 19:23
History of Present Illness
History of Present Illness:
This is a 79 year old male that comes in with c/o right arm bump. States that he was here earlier today and had blood taken form he left arm. Then today when he got home he looked down at the right arm and there was swelling on the forearm.
states that he was just in the hospital 4 days and was cardioverted twice. States that he is on Eliquis and he had an IV at this site. Denies any pain at this site. States that he is always SOB and has been dizzy for 40 years. Denies any fever,
chills, chest pain, abd pain, nausea, vomiting, diarrhea, headache, urinary burning.
Past History
Past History
ED Past Medical History: Arrthythmia (Atrial fib), CAD, HTN, Hypercholesterolemia, Psychiatric (Depression, ) and Other (Arthritis, vertigo, Neck and back pain, Numbness arms and legs, PNA, Sleep apnea, Aortic stenosis, Urine retention, Low back
disc problem, )
ED Past Surgical History: Cardiac (7 cardiac stents, Quad Bypass, Valve replacement), Orthopedic (Neck fusion, Left hand/wrist surgery, Left shoulder rotator cuff) and Other (3 groin aneurysm. )
Social History
Tobacco: Non-smoker
Alcohol: None
Personal:
Living: with family
Review of Systems
Review of Systems
All Other Systems: ROS reviewed and negative except as documented in HPI and ROS
Constitutional: Reports no symptoms; Denies fever or chills
EENT: Reports no symptoms
Respiratory: Reports trouble breathing; Denies cough
Cardiac: Reports no symptoms; Denies chest pain
ABD/GI: Reports no symptoms; Denies abdominal pain, nausea, vomiting or diarrhea
: Reports no symptoms; Denies dysuria, frequency or urgency
Musculoskeletal: Reports no symptoms
Skin: Reports other (Bump on the right forearm. )
Neurological: Reports dizzy; Denies headache
Psychiatric: Reports no symptoms
Phy Exam
General Physical Exam
General Presentation: well appearing and no apparent distress
General age: appears stated age
General Skin: warm and dry
General Habitus: elderly
General Mental: alert
General Hydration: appears well hydrated
ENT Exam
ENT Exam: TM's normal, pharynx normal and neck supple
Eye Exam
Eye Exam: EOMI
Cardiovascular Exam
Cardiovascular Exam: no edema, normal peripheral pulses, irregularly irregular and other (Murmur)
Pulmonary Exam
Pulmonary Exam: no respiratory distress, chest non tender, no rhonchi, no wheezing, no cough and other (Very fine crackles at bases)
Musculoskeletal Exam
Musculoskeletal Exam: full ROM and no edema
Skin Exam
Skin Exam: normal color, warm/dry, no rash, no petechia and other (Small hematoma of the right forearm. Appears to be bruised, and old IV injection site noted. Negative for any redness or drainage)
Psychiatric Exam
Psychiatric Exam: normal mood/affect
Scores
Heart Failure Risk
Heart Failure Risk Score: Not Applicable
Course
Vital Signs
Initial and Last Documented VS:
Initial Vital Signs
Temp Pulse Resp BP Pulse Ox
98.6 F 76 16 146/82 98
09/23/24 18:10 09/23/24 18:10 09/23/24 18:10 09/23/24 18:10 09/23/24 18:10
Last Documented Vital Signs
Temp Pulse Resp BP Pulse Ox
98.6 F 76 16 146/82 98
09/23/24 18:10 09/23/24 18:10 09/23/24 18:10 09/23/24 18:10 09/23/24 18:10
MDM/Problems Addressed
Differential Diagnosis Includes:
Hematoma right arm
MDM/Problems Addressed:
This is a 79 year old male that comes in with c/o right arm bump. States that he just noticed this today. Patient was in the Hospital and had an IV at that spot.
Explained that this looks to be a hematoma and will go away on its own. Offered patient an US but he did not feel that this was necessary. Patient to do warm compresses to the right arm 3-4 times daily for 20 min. Explained that he may have bumped
his arm and being on Eliquis there was some bleeding under his skin. Will discharge home.
Chronic conditions affecting care:
ON Eliquis
Acute Exacerbation and/or Progression of Chronic Illness:
NA
*Pulse Oximetry
Patient hypoxic: no
*EKG
Interpreted by ED Provider?: NA
Rate: EKG- N/A
*Caseworker Interpretation
Rate: Caseworker- N/A
*Critical Care Note
Total Time (30-74mins, 75-104mins- exclusive of procedures): Not Applicable
ED Attending Note
-
Portions of this chart may have been created with voice recognition software.� Occasional wrong word or��sound alike� substitutions may have occurred due to the inherent limitations of voice recognition software.
Discharge Plan
Departure
Patient Disposition: Home (Routine Discharge)
Date of Disposition: 09/23/24
Time of Disposition: 19:58
Patient with high blood pressure during this ER visit?: Yes
Condition: Good
Covid-19: Not Applicable
Discharge Problem:
Hematoma of right forearm
Instructions: BLOOD PRESSURE, Hematoma
Prescriptions:
No Action
tamsulosin 0.4 MG capsule
0.4 mg PO DAILY
finasteride 5 MG tablet
5 mg PO DAILY
escitalopram oxalate 20 mg Tablet
20 mg PO HS
rosuvastatin 40 mg Tablet
40 mg PO HS
bupropion HCl 150 mg Tablet Extended Release 24 Hr
150 mg PO DAILY
aspirin 81 MG tablet,delayed release (DR/EC)
81 mg PO DAILY
TheraTears 0.25 % Drops
1 drp BOTH EYES BIDPRN PRN (Reason: dryness)
dextroamphetamine-amphetamine [Adderall] 20 mg Tablet
20 mg PO BID
phenylephrine HCl 0.5 % Mist
1 spray INTRANASAL DAILYPRN PRN (Reason: congestion)
Eliquis 5 mg Tablet
5 mg PO BID
oxycodone-acetaminophen [Endocet] 10-325 mg tablet
1 tab PO Q3HPRN MDD 8 tablets PRN (Reason: severe pain)
benzonatate 100 mg Capsule
100 mg PO TIDPRN PRN (Reason: cough)
Tylenol Cold and Flu Severe 8-30-934-200 mg Tablet
2 tab PO DAILYPRN PRN (Reason: head pressure)
pantoprazole 40 mg tablet,delayed release (DR/EC)
40 mg PO BID Qty: 60 0RF
furosemide 20 mg Tablet
20 mg PO DAILY Qty: 30 3RF
dofetilide 500 mcg Capsule
500 mcg PO Q12H Qty: 60 3RF
valsartan 160 mg tablet
160 mg PO DAILY Qty: 30 3RF
Referrals:
UNKNOWN - PT DOES,NOT KNOW [Family Provider] -
Activity Restrictions/Additional Instructions:
As discussed, this looks to be a small hematoma, which is some bleeding under the skin. Please do warm compressed to the forearm 3-4 times daily for 20 min. This will slowly be reabsorbed by the body. IF YOU HAVE INCREASED SWELLING OR YOU START WITH
PAIN PLEASE RETURN TO THE EMERGENCY ROOM.
Interventions
Interventions:
*Risk Screen - Suicide Last Done: 09/23/24 18:10
*General Assessment Last Done: 09/23/24 19:46
*Neglect/Abuse Screening Last Done: 09/23/24 18:10
ED- Fall Risk Assessment Last Done: 09/23/24 19:46
*ED COVID-19 Vaccine History Last Done: 09/23/24 19:52
ED- Cardiac Assessment Last Done: 09/23/24 19:46
ED- Pulmonary Assessment Last Done: 09/23/24 19:46
ED-Skin Assessment Last Done: 09/23/24 19:46
Discharge Date and Time
Print Language: LIBERIAN
== END 2024-09-23 20:15 | disposition home or self-care (01) ==
LOC: EMR 18:07
PROVIDERS: EMERGENCY PHYSICIAN Emergency Medicine; FAMILY PHYSICIAN Physician Assistant
DX: S50.11XA Contusion of right forearm, initial encounter (principal); R22.31 Localized swelling, mass and lump, right upper limb; R42 Dizziness and giddiness; X58.XXXA Exposure to other specified factors, initial encounter; I25.10 Atherosclerotic heart disease of native coronary artery without angina pectoris; R06.02 Shortness of breath; E78.00 Pure hypercholesterolemia, unspecified; F32.A Depression, unspecified; M19.90 Unspecified osteoarthritis, unspecified site; I35.0 Nonrheumatic aortic (valve) stenosis; Z95.2 Presence of prosthetic heart valve; Z95.5 Presence of coronary angioplasty implant and graft; Z95.1 Presence of aortocoronary bypass graft; M43.22 Fusion of spine, cervical region; I48.91 Unspecified atrial fibrillation; I10 Essential (primary) hypertension; G47.30 Sleep apnea, unspecified; Z79.01 Long term (current) use of anticoagulants; Z88.8 Allergy status to other drugs, medicaments and biological substances; Z79.82 Long term (current) use of aspirin
CPT/HCPCS: 99282

== ENCOUNTER → 2024-12-10 13:42 | Outpatient (REF) | payer MEDICARE, OTHER, SELFPAY | LOC: HWRAD 13:42 | PROVIDERS: ATTENDING PHYSICIAN Physician Assistant; REFERRING PHYSICIAN Internal Medicine Cardiovascular Disease | DX: J40 Bronchitis, not specified as acute or chronic (principal); Z95.5 Presence of coronary angioplasty implant and graft; I48.19 Other persistent atrial fibrillation | CPT/HCPCS: 71046 ==

== ENCOUNTER → 2024-12-16 11:08 | Outpatient (REF) | payer MEDICARE, OTHER, SELFPAY | LOC: HWRAD 11:08 | PROVIDERS: ATTENDING PHYSICIAN Physician Assistant | DX: R10.31 Right lower quadrant pain (principal); R22.41 Localized swelling, mass and lump, right lower limb | CPT/HCPCS: 76882 ==

== ENCOUNTER → 2025-01-18 12:10 | Outpatient (REF) | payer MEDICARE, OTHER, SELFPAY | LOC: HWRAD 12:10 | PROVIDERS: ATTENDING PHYSICIAN Physician Assistant | DX: R10.31 Right lower quadrant pain (principal) | CPT/HCPCS: 73502 ==

== ENCOUNTER → 2025-03-23 16:20 | Outpatient (REF) | payer MEDICARE, OTHER, SELFPAY ==
[2025-03-23 17:53] LABS: Hematocrit 39.2 % (39.0-52.0); Hemoglobin 13.3 g/dL (13.0-18.0); Mean Corp Hgb Conc. 33.9 g/dL (33.0-37.0); Mean Corpuscular Hgb 28.7 pg (27.0-31.0); Mean Corpuscular Volume 84.5 fL (80.0-94.0); Red Blood Cell Count 4.64 10^6/uL (4.70-6.10); Red Cell Dist. Width 13.5 % (11.5-14.5); White Blood Cell Count 6.7 10^3/uL (4.8-10.8)
[2025-03-23 17:56] LABS: Blood Urea Nitrogen 20 mg/dl (9-20); Carbon Dioxide 27 mmol/L (22-30); Chloride 104 mmol/L (98-107); Glucose 92 mg/dl (70-99); Potassium 4.5 mmol/L (3.5-5.1); Sodium 138 mmol/L (135-145); eGFR > 60.00
[2025-03-23 18:06] LABS: Mean Platelet Volume 11.2 fL (7.4-10.4); Platelet Count 38 10^3/uL (130-400)
== END ==
LOC: RAD 16:20
PROVIDERS: ATTENDING PHYSICIAN Nurse Practitioner Gerontology; FAMILY PHYSICIAN Physician Assistant
DX: T14.8XXA Other injury of unspecified body region, initial encounter (principal)
CPT/HCPCS: 36415; 73200; 80048; 85027

== ENCOUNTER → 2025-04-01 14:13 | Outpatient (REF) | payer MEDICARE, OTHER, SELFPAY | LOC: HWRCS 14:13 | PROVIDERS: ATTENDING PHYSICIAN Nurse Practitioner Gerontology; FAMILY PHYSICIAN Physician Assistant | DX: I50.32 Chronic diastolic (congestive) heart failure (principal); Z95.2 Presence of prosthetic heart valve | CPT/HCPCS: 93306 ==

== ENCOUNTER → 2025-04-04 10:42 | Outpatient (REF) | payer MEDICARE, OTHER, SELFPAY ==
[2025-04-04 16:09] LABS: % Basophils 0.1 % (0-2); % Immature Granulocytes 1.5 % (0-0.5); % Lymphocytes 13.6 % (20.5-51.1); % Monocytes 8.8 % (1.7-9.3); Absolute Immature Granulocytes 0.2 10^3/uL (0-0.05); Absolute Monocytes 1.3 10^3/uL (0.1-0.6); Absolute Neutrophils 11.2 10^3/uL (1.4-6.5); Hemoglobin 15.7 g/dL (13.0-18.0); Mean Corp Hgb Conc. 33.4 g/dL (33.0-37.0); Mean Corpuscular Hgb 28.8 pg (27.0-31.0); Mean Corpuscular Volume 86.2 fL (80.0-94.0); Mean Platelet Volume 11.2 fL (7.4-10.4); Nucleated Red Blood Cells % 0 % (-); Platelet Count 156 10^3/uL (130-400); Red Blood Cell Count 5.45 10^6/uL (4.70-6.10); Red Cell Dist. Width 13.9 % (11.5-14.5); White Blood Cell Count 14.7 10^3/uL (4.8-10.8)
== END ==
LOC: HWLAB 10:42
PROVIDERS: Internal Medicine Hematology & Oncology; ATTENDING PHYSICIAN Nurse Practitioner Gerontology; FAMILY PHYSICIAN Physician Assistant
DX: I50.32 Chronic diastolic (congestive) heart failure (principal); D69.6 Thrombocytopenia, unspecified
CPT/HCPCS: 36415; 85025

== ENCOUNTER → 2025-04-08 12:45 | Outpatient (REF) | payer MEDICARE, OTHER, SELFPAY ==
[2025-04-08 15:58] LABS: % Basophils 0.2 % (0-2); % Eosinophils 0.2 % (0-6); % Immature Granulocytes 0.8 % (0-0.5); % Lymphocytes 18.1 % (20.5-51.1); % Monocytes 8.2 % (1.7-9.3); % Neutrophils 72.5 % (42.2-75.2); Absolute Immature Granulocytes 0.1 10^3/uL (0-0.05); Absolute Monocytes 1.3 10^3/uL (0.1-0.6); Absolute Neutrophils 11.9 10^3/uL (1.4-6.5); Hematocrit 49.6 % (39.0-52.0); Hemoglobin 16.4 g/dL (13.0-18.0); Mean Corp Hgb Conc. 33.1 g/dL (33.0-37.0); Mean Corpuscular Hgb 28.8 pg (27.0-31.0); Mean Platelet Volume 11.1 fL (7.4-10.4); Nucleated Red Blood Cells % 0 % (-); Platelet Count 118 10^3/uL (130-400); White Blood Cell Count 16.4 10^3/uL (4.8-10.8)
== END ==
LOC: HWLAB 12:45
PROVIDERS: ATTENDING PHYSICIAN Internal Medicine Hematology & Oncology; FAMILY PHYSICIAN Physician Assistant
DX: D69.6 Thrombocytopenia, unspecified (principal); Z79.01 Long term (current) use of anticoagulants
CPT/HCPCS: 36415; 85025

== ENCOUNTER → 2025-04-21 11:55 | Outpatient (REF) | payer MEDICARE, OTHER, SELFPAY ==
[2025-04-21 15:46] LABS: % Basophils 0.2 % (0-2); % Eosinophils 0.5 % (0-6); % Immature Granulocytes 1.6 % (0-0.5); % Lymphocytes 23.3 % (20.5-51.1); % Monocytes 9.4 % (1.7-9.3); Absolute Eosinophils 0.1 10^3/uL (0-0.7); Absolute Immature Granulocytes 0.2 10^3/uL (0-0.05); Absolute Lymphocytes 3.4 10^3/uL (1.2-3.4); Absolute Monocytes 1.4 10^3/uL (0.1-0.6); Absolute Neutrophils 9.6 10^3/uL (1.4-6.5); Hematocrit 45.1 % (39.0-52.0); Hemoglobin 14.6 g/dL (13.0-18.0); Mean Corp Hgb Conc. 32.4 g/dL (33.0-37.0); Mean Corpuscular Hgb 28.7 pg (27.0-31.0); Mean Corpuscular Volume 88.6 fL (80.0-94.0); Nucleated Red Blood Cells % 0 % (-); Red Blood Cell Count 5.09 10^6/uL (4.70-6.10); Red Cell Dist. Width 13.8 % (11.5-14.5); White Blood Cell Count 14.8 10^3/uL (4.8-10.8)
[2025-04-21 16:47] LABS: Mean Platelet Volume 11.1 fL (7.4-10.4); Platelet Count 95 10^3/uL (130-400)
== END ==
LOC: HWLAB 11:55
PROVIDERS: ATTENDING PHYSICIAN Internal Medicine Hematology & Oncology; FAMILY PHYSICIAN Physician Assistant
DX: D69.6 Thrombocytopenia, unspecified (principal); Z79.01 Long term (current) use of anticoagulants
CPT/HCPCS: 36415; 85025

== ENCOUNTER → 2025-04-28 10:23 | Outpatient (REF) | payer MEDICARE, OTHER, SELFPAY ==
[2025-04-28 12:31] LABS: % Basophils 0.3 % (0-2); % Eosinophils 0.3 % (0-6); % Immature Granulocytes 2.2 % (0-0.5); % Lymphocytes 17.8 % (20.5-51.1); % Monocytes 8.4 % (1.7-9.3); Absolute Immature Granulocytes 0.3 10^3/uL (0-0.05); Absolute Lymphocytes 2.5 10^3/uL (1.2-3.4); Absolute Monocytes 1.2 10^3/uL (0.1-0.6); Absolute Neutrophils 9.9 10^3/uL (1.4-6.5); Hematocrit 38.6 % (39.0-52.0); Hemoglobin 12.7 g/dL (13.0-18.0); Mean Corp Hgb Conc. 32.9 g/dL (33.0-37.0); Mean Corpuscular Hgb 29.1 pg (27.0-31.0); Mean Corpuscular Volume 88.3 fL (80.0-94.0); Mean Platelet Volume 10.4 fL (7.4-10.4); Nucleated Red Blood Cells % 0 % (-); Platelet Count 114 10^3/uL (130-400); Red Blood Cell Count 4.37 10^6/uL (4.70-6.10); Red Cell Dist. Width 13.7 % (11.5-14.5)
== END ==
LOC: HWLAB 10:23
PROVIDERS: ATTENDING PHYSICIAN Internal Medicine Hematology & Oncology; FAMILY PHYSICIAN Physician Assistant
DX: D69.6 Thrombocytopenia, unspecified (principal); Z79.01 Long term (current) use of anticoagulants
CPT/HCPCS: 36415; 85025

== ENCOUNTER 2025-05-11 22:27 | Inpatient (IN) | payer MEDICARE, OTHER, SELFPAY ==
[2025-05-11] VITALS (16 sets, daily range): BP systolic 137–205; BP diastolic 70–100; BMI 29.9; BMI 29.1
[2025-05-11 18:20] LABS: Glucose - Point of Care 106 mg/dl (70-99)
[2025-05-11 18:34] LABS: % Basophils 0.6 % (0-2); % Eosinophils 1.7 % (0-6); % Immature Granulocytes 1.3 % (0-0.5); % Lymphocytes 21.6 % (20.5-51.1); % Monocytes 8.1 % (1.7-9.3); % Neutrophils 66.7 % (42.2-75.2); Absolute Basophils 0.1 10^3/uL (0-0.2); Absolute Eosinophils 0.2 10^3/uL (0-0.7); Absolute Immature Granulocytes 0.2 10^3/uL (0-0.05); Absolute Lymphocytes 2.5 10^3/uL (1.2-3.4); Absolute Neutrophils 7.8 10^3/uL (1.4-6.5); Hematocrit 44.3 % (39.0-52.0); Hemoglobin 15.6 g/dL (13.0-18.0); Mean Corp Hgb Conc. 35.2 g/dL (33.0-37.0); Mean Corpuscular Hgb 30.1 pg (27.0-31.0); Mean Corpuscular Volume 85.5 fL (80.0-94.0); Nucleated Red Blood Cells % 0 % (-); Red Blood Cell Count 5.18 10^6/uL (4.70-6.10); Red Cell Dist. Width 13.9 % (11.5-14.5); White Blood Cell Count 11.7 10^3/uL (4.8-10.8)
[2025-05-11 18:40] LABS: INR 0.94; PT 13.1 Sec (11.4-14.6)
[2025-05-11 18:41] LABS: APTT 28.2 Sec (23.4-35.0)
[2025-05-11 18:42] LABS: ALT (SGPT) 45 U/L (0-50); AST (SGOT) 33 U/L (17-59); Albumin 4.4 g/dl (3.5-5.0); Alkaline Phosphatase 76 U/L (38-126); Blood Urea Nitrogen 22 mg/dl (9-20); Calcium 9.6 mg/dl (8.4-10.2); Carbon Dioxide 28 mmol/L (22-30); Chloride 102 mmol/L (98-107); Estimated Creatinine Clearance 84 ml/min; Glucose 118 mg/dl (70-99); Potassium 4.8 mmol/L (3.5-5.1); Sodium 134 mmol/L (135-145); Total Bilirubin 1.5 mg/dl (0.2-1.3); Total Protein 6.7 g/dl (6.3-8.2); eGFR > 60.00
[2025-05-11 18:46] LABS: Mean Platelet Volume 10.4 fL (7.4-10.4); Platelet Count 69 10^3/uL (130-400)
[2025-05-11] MEDS: CARDENE 200 IV (18:52)
[2025-05-11] MEDS: VERSED 2 MG IV (19:16)
--- NOTE | 2025-05-11 20:05 | ED.GENMED ---
History of Present Illness
General
Chief Complaint: Change in Mental Status
Source: family and physician
Time Seen by Provider: 05/11/25 18:07
History of Present Illness
History of Present Illness:
Note:
CHIEF COMPLAINT(S)
Altered mental status.
HISTORY OF PRESENT ILLNESS
The patient is an 80-year-old male with a history of Immune Thrombocytopenic Purpura (ITP) who presented with altered mental status. Symptoms were first noted around 9 a.m. today, although there have been intermittent episodes over the last few
weeks, today acutely and severely worse per . The patient exhibited trouble concentrating and expressing himself while still answering questions seemed to have difficulty formulating sentences. There was no report of fever or recent stroke-like
symptoms. He had been taking prednisone, initially 80mg and tapering this, currently on 20mg, as per Dr. James, and is on apixaban for atrial fibrillation. Patient is currently denying any pain and states he has not been expressing any chest
pain, shortness of breath, no reported fevers or other infectious symptoms at home.
ADDITIONAL HISTORY OBTAINED FROM SOURCES OTHER THAN THE PATIENT
According to a family member, the patient was last seen without symptoms at 9 p.m. the previous evening. No history of strokes or neurologic problems was reported.
SOCIAL DETERMINANTS AFFECTING HEALTH
According to the family member, there is no tobacco or alcohol use reported.
REVIEW OF SYSTEMS
- Neurological: Difficulty concentrating and expressing himself.
- General: No pain reported.
- Cardiovascular: Known history of atrial fibrillation.
Past History
Past History
ED Past Medical History: Arrthythmia (Atrial fib), CAD, HTN, Hypercholesterolemia, Psychiatric (Depression, ) and Other (Arthritis, vertigo, Neck and back pain, Numbness arms and legs, PNA, Sleep apnea, Aortic stenosis, Urine retention, Low back
disc problem, )
ED Past Surgical History: Cardiac (7 cardiac stents, Quad Bypass, Valve replacement), Orthopedic (Neck fusion, Left hand/wrist surgery, Left shoulder rotator cuff) and Other (3 groin aneurysm. )
Social History
Tobacco: Non-smoker
Alcohol: None
Drug: None
Personal:
Living: with family
Review of Systems
Review of Systems
All Other Systems: ROS reviewed and negative except as documented in HPI and ROS
Phy Exam
Physical Exam
Physical Exam:
GENERAL: Alert , agitated, difficult time sitting still
HEAD: NCAT
EYE: Clear conjunctiva
NECK: Supple, no significant adenopathy.
ENT: o/p clr, mmm.
CARDIAC: Regular rate and rhythm, no murmur.
LUNGS: Clear breath sounds bilaterally, no acute respiratory distress, no wheezes/rales/rhonchi
ABDOMEN: Soft, without focal tenderness, no r/g, no cvat
NEUROLOGICAL: Alert and oriented to self and place but not year, follows commands, somewhat rambling speech and intermittently difficult to understand
SKIN: Warm and dry, skin intact.
MUSCULOSKELETAL: No edema, well perfused.
PSYCH: Somewhat odd affect
Scores
NIH Stroke Score
Level of Consciousness: 0 - Alert
LOC Questions: 0-Answers both correctly
LOC Commands: 0-Performs both correctly
Best Horizontal Gaze: 0-Normal
Visual Colby: 0=Normal, no visual loss
Facial Palsy: 0=Normal, symmetrical
Motor - Right Arm: 0=No drift 10 seconds
Motor - Left Arm: 0=No drift 10 seconds
Motor - Right Le-No drift 5 seconds
Motor - Left Le-No drift 5 seconds
Limb Ataxia: 0-Absent
Sensation: 0-Normal
Best Language: 1-Mild aphasia
Dysarthria: 0-Normal
Extinction and Inattention: 0-No abnormality
NIH Total Score:: 1
Heart Failure Risk
Heart Failure Risk Score: Not Applicable
Heart Score for Chest Pain Patients
STEMI patient?: Not applicable
Withdrawal Assessment of Alcohol
Withdrawal Assessment Completed?: Not applicable
Course
Orders/Labs/Results
Orders:
Orders
05/11/25 17:57
CT Head W/o Iv Contrast Urgent
Comment:
Reason For Exam: change in mental status
05/11/25 18:23
Type+Screen Urgent
Complete Blood Count/With Diff Urgent
Comprehensive Metabolic Panel Urgent
PT/INR [Prothrombin Time] Urgent
PTT Urgent
05/11/25 18:27
CT Head & Neck Angio W/wo IV Urgent
Comment:
Reason For Exam: AMS, hypertensive
05/11/25 18:28
Electrocardiogram (*1) Urgent
Reason for Study: TIA/Stroke
EKG- Treatment ONCE
05/11/25 18:30
Nicardipine 40 mg/200 ml [Cardene] 40 mg in 200 ml IV PER PROTOCOL
Initial dose in mg/hr, then titrate:: 5
Titrate to keep:: SBP 140 - 160 mmHg
Titrate by mg/hr:: 2.5 mg/hr
Frequency of titrations (minutes):: 5-15 minutes
Maximum dose in mg/hr:: 15
Begin to taper infusion when:: Remained at goal for 2hrs
Taper by mg/hr:: 2.5 mg/hr
Frequency of taper (minutes) if patient maintains goal:: every 15-30 minutes
Taper to off?: Yes
If infusion off & no longer maintaining goal:: Contact Provider
05/11/25 18:56
Ceribell [Rapid Point of Care EEG (ED/ICU ONLY)] Q1H
Indications for use:: Altered Mental Status
05/11/25 19:02
Midazolam HCl [Versed] 2 mg IV NOW STA
05/11/25 19:23
Lactic Acid Q4H
Comment: CANCEL 2nd LACTIC ACID IF 1st LACTIC ACID IS LESS THAN 2
Lyme Progressive Urgent
Blood Culture Q30M
ALEJANDRA Source: Blood/Venous
Specimen Description:
Malaria Smear [Blood Parasites] Urgent
ALEJANDRA Source: Blood/Venous
Specimen Description:
05/11/25 19:57
Blood Culture Q30M
ALEJANDRA Source: Blood/Venous
Specimen Description:
05/11/25 20:09
Urinalysis Reflex To Culture Urgent
Date Specimen was Collected: 05/11/25
Time Specimen was Collected: 20:00
Urine Microscopic Reflex Cult Urgent
05/11/25 20:26
Weiss [Weiss Placement- Treatment] ONCE
Reason for insertion: Acute Retention
05/11/25 21:11
Admit/Transfer Patient As Directed
Co-Sign Provider:
Level of Care: Inpatient admission
Assign to:: IMU- Intermediate Care
Physician / Group: Levi
Diagnosis: Hypertensive Urgency, Altered Mental Status
Reason for Hospitalization: Hypertensive Urgency, Altered Mental Status
Expected length of stay greater than two midnights?: Yes
ELOS- Estimated Length of Stay in days: 3
I certify the patient meets the requirements for IP care: Yes
05/11/25 21:12
PRN Pain Medication Management As Directed
May give lesser potent ordered pain med per pt: Yes
preference::
Protocol:: Medication orders for pain may be administered in a
manner that supports deferring to patient preference
when the pt is:
- Requesting an ordered lesser potent pain medication.
Least to most potent pain medications are defined
as: acetaminophen < NSAID < tramadol < opioids
(morphine, oxycodone, hydromorphone).
- Requesting a lesser dose of the same medication IF
ORDERED.
- Requesting a less intrusive route of administration
if both routes are prescribed by the provider (PO <
IV).
05/11/25 21:15
Code Status As Directed
Resuscitation Status: Full Code
05/11/25 21:20
Amlodipine [Norvasc] 5 mg PO NOW STA
Valsartan [Diovan] 320 mg PO NOW STA
05/11/25 22:00
Flush (0.9% Sodium Chloride) [Flush (Nss)] See Dose Instructions IV PER PROTOCOL
05/11/25 23:00
Lactic Acid Q4H
Comment: CANCEL 2nd LACTIC ACID IF 1st LACTIC ACID IS LESS THAN 2
Abnormal Lab Results
05/11/25 05/11/25 05/11/25
18:23 20:09
WBC 11.7 H 10^3/uL
(4.8-10.8)
Plt Count 69 L 10^3/uL
(130-400)
Abs Immat Gran (auto) 0.2 H 10^3/uL
(0-0.05)
Absolute Neuts (auto) 7.8 H 10^3/uL
(1.4-6.5)
Absolute Monos (auto) 1.0 H 10^3/uL
(0.1-0.6)
Immature Gran % 1.3 H %
(0-0.5)
Sodium 134 L mmol/L
(135-145)
BUN 22 H mg/dl
(9-20)
Glucose 118 H mg/dl
(70-99)
Total Bilirubin 1.5 H mg/dl
(0.2-1.3)
Ur Occult Blood Reflex 4+ A
(Negative)
Urine RBC 50-60 A /HPF
(0-2)
Urine Bacteria (Reflex) Few A
(Negative)
POC Glucose 106 H mg/dl
(70-99)
05/11/25 18:23
05/11/25 18:23
Vital Signs
Initial and Last Documented VS:
Initial Vital Signs
Temp Pulse Resp BP Pulse Ox
97.6 F 60 16 187/96 99
05/11/25 17:54 05/11/25 17:54 05/11/25 17:54 05/11/25 17:54 05/11/25 17:54
Last Documented Vital Signs
Temp Pulse Resp BP Pulse Ox
97.8 F 67 26 160/97 99
05/11/25 18:26 05/11/25 20:45 05/11/25 19:00 05/11/25 20:45 05/11/25 20:45
MDM/Problems Addressed
Differential Diagnosis Includes:
The Differential Diagnosis includes, in no particular order and is not limited to:
- Hypertensive encephalopathy
- Prednisone-induced mental status changes
- Transient ischemic attack (TIA)
- Stroke
- Atrial fibrillation-related complications
- Electrolyte imbalance
- Infection (e.g., urinary tract infection, pneumonia)
- Subdural hematoma
- Medication side effects
- Dementia exacerbation
MDM/Problems Addressed:
Patient presenting to the ER for evaluation of acute mental status change. Symptom onset is at least 20 hours and potentially longer than that given he has had waxing and waning symptoms over the last few weeks. No stroke alert was called and
patient is not a TNK candidate however we will send for CTA of the head and neck to further evaluate. Blood pressure at home was reportedly greater than 200 systolically and this is the same at time of my evaluation. Concern for hypertensive
urgency/emergency. Patient's heart rate between 50 and 60, not a candidate for beta-millicent so we will initiate Cardene. I notified on-call neurologist who is in agreement with this workup plan. Anticipate admission
*Radiology
Radiology exam reviewed: radiology read reviewed
*Pulse Oximetry
SaO2: 100
Oxygen Mode of Delivery: Room air
*EKG
Heart Rate: 67
Rate: normal
Rhythm: sinus
Kinards: normal axis
Ischemia: non-specific ST changes
*Radio Intelligence Operator Interpretation
Rate: normal
Rhythm: sinus
*Critical Care Note
Total Time (30-74mins, 75-104mins- exclusive of procedures): 40
comment:
Critical care statement: A total of 40 minutes of critical care time was provided for this patient. This includes management of unstable vital signs, evaluation of the patient at bedside, reviewing the patient's pertinent medical records, discussion
with consultants, review of old EKGs and review of pertinent medical records. This time with separate from time utilized to perform the aforementioned documented procedures
Data Reviewed
Review of Other/Old Records Reveals: Labs and Records
Comment
Comment:
05/11/25 - 20:05
Patient remains agitated and altered, with poor redirection despite interventions. Expressed suprapubic discomfort led to bladder scan revealing 350 ml urine; Weiss catheterization drained 300 ml clear yellow urine. Administration of Versed provided
partial relief. Labs show leukocytosis and continued thrombocytopenia; no signs of uremia. Head and neck CTA unremarkable, but notable for motion artifact. Admission is pending further testing in the ER.
Patient Management
Discussion with other providers: Hospitalist and Bottle Feeder
Escalation/DeEscalation of care consider admission/obs:
Patient did have improvement of his blood pressure with the Cardene drip. Versed seem to help him relax more. I notified patient's chuck splitter who sent him to the ER about presentation and workup. Due to the still unclear etiology of patient's
symptoms plan for admission for further workup. Hospitalist team accepts for further evaluation and treatment.
ED Attending Note
-
Portions of this chart may have been created with voice recognition software.� Occasional wrong word or��sound alike� substitutions may have occurred due to the inherent limitations of voice recognition software.
Discharge Plan
Departure
Patient Disposition: Admit
Date of Disposition: 05/11/25
Time of Disposition: 20:21
Presentation/result/management discussed w/ accepting MD/DO: Hospitalist
Discharge Problem:
Altered mental status, Hypertensive urgency, Idiopathic thrombocytopenic purpura (ITP)
Prescriptions:
No Action
tamsulosin 0.4 MG capsule
0.4 mg PO DAILY
finasteride 5 MG tablet
5 mg PO DAILY
escitalopram oxalate 20 mg Tablet
20 mg PO HS
rosuvastatin 40 mg Tablet
40 mg PO HS
Eliquis 5 mg Tablet
5 mg PO BID
oxycodone-acetaminophen [Endocet] 10-325 mg tablet
1 tab PO Q6HPRN PRN (Reason: severe pain)
Patient Comments:
05/11/2025, last filled on 04/19/2025 for 240 tablets for 30-day supply per PDMP.
furosemide 20 mg Tablet
20 mg PO DAILY Qty: 30 3RF
prednisone 20 mg Tablet
20 mg PO QPM
amlodipine 5 mg Tablet
5 mg PO HS
pantoprazole 20 mg Tablet,Delayed Release (Dr/Ec)
20 mg PO DAILY
dextroamphetamine-amphetamine 30 mg Tablet
30 mg PO BID
Patient Comments:
05/11/2025, last filled on 04/27/2025 for 60 tablets for 30-day supply per PDMP.
valsartan 320 mg Tablet
320 mg PO HS
dofetilide 500 mcg capsule
500 mcg PO BID
Referrals:
Iris Evans PA-C [Family Provider, Internal Medicine]
Interventions
Interventions:
*Risk Screen - Suicide Last Done: 05/11/25 18:28
*General Assessment Last Done: 05/11/25 18:28
*Neglect/Abuse Screening Last Done: 05/11/25 18:28
*ED- Fall Risk Assessment Last Done: 05/11/25 18:28
*ED COVID-19 Vaccine History Last Done: 05/11/25 18:28
ED- Cardiac Assessment Last Done: 05/11/25 19:45
ED- Neurological Assessment Last Done: 05/11/25 18:29
ED- Pulmonary Assessment Last Done: 05/11/25 19:45
ED Swallowing Screen Last Done: 05/11/25 20:20
Discharge Date and Time
Print Language: INDONESIAN
[2025-05-11 20:12] LABS: Lactic Acid 1.8 mmol/L (0.7-2.0)
[2025-05-11 20:17] LABS: Urine Albumin Negative (Neg - Trace); Urine Bilirubin Negative (Negative); Urine Character Clear (Clear); Urine Color Yellow; Urine Glucose Negative (Negative); Urine Ketone Negative (Negative); Urine Leukocyte Negative (Negative); Urine Nitrite Negative (Negative); Urine Occult Blood 4+ (Negative); Urine Urobilinogen Negative (Neg - 1+)
[2025-05-11 20:27] LABS: Urine Squamous Cell 0-2 /LPF (Few)
[2025-05-11 20:28] LABS: Urine Bacteria Few (Negative); Urine Red Blood Cell 50-60 /HPF (0-2); Urine White Cell 0-2 /HPF (0-5)
--- NOTE | 2025-05-11 21:22 | HPS.HSE ---
Family Physician
-
Family Physician: Iris Evans
Chief Complaint
-
Altered Mental Status
History of Present Illness
Patient is an 80y M with PMH significant for chronic pain / chronic opioid use disorder, polypharmacy, ASCVD and ITP who presents to ED for evaluation of mental status changes. History obtained from patient and family at the bedside. Patient
reports that he was diagnosed with ITP about 2 months ago. He was started on high dose oral steroids at that time. Family has noted onset of mood changes, agitation and confusion over the past few months. Symptoms have become increased in
frequency and severity. Patient himself describes the episodes as sensation of 'looping' or vikas vu.
Today he was restless and agitated at home. Family could not re-orient him. He was striking himself in the head. He was brought to the ED for further evaluation where he was noted to be acutely agitated and hypertensive.
He complained of need to urinate, but was unable to pass urine. A Weiss was placed in the ED for return of about 500cc of dark urine.
Patient was also given Versed x 1 dose.
Shortly after Versed / Weiss placement he calmed significantly.
He was briefly placed on Cardene for BP control but this has since been discontinued.
At the time of my examination patient is awake, alert, calm and cooperative. He appears at his baseline.
Patient has a long history of opioid dependence. His last dose of Percocet was yesterday evening (he did take two tabs while here in the ED per family).
He has had some missed doses of medications recently according to family. Specifically, he did not take his evening meds (in pill minder) Friday or Friday evening.
He will occasionally skip his 'medicines for peeing' because he feels that cause him to urinate too much.
Patient / family deny any prior history of agitation / similar episodes prior to the past few months.
Medical History
Past Medical History
Past Medical History: Reports Other
Additional Past Medical History:
Polyarthritis / Chronic Pain Syndrome
Chronic Opioid Dependence
ADHD
Hypertension
ASCVD
SUMIT
Paroxysmal Atrial Fibrillation
Aortic Stenosis
DDD
ITP
Past Surgical History: Reports Other
Additional Past Surgical History:
PTCA with Stents
[employer]
CABG x 4
AtriClip
Lumbar Laminectomy / Discectomy
Cervical Fusion
Right Femoral Artery Aneurysm Repair (x 3)
Carpal Tunnel Release
Left Shoulder Surgery
Social History
Alcohol: None
Drug: None
Personal:
Living: With Family
Family History
Family History: Not pertinent
Allergies / Home Medications
Allergies reflects when Allergies were last updated in [facility].
Home Medications with original date entered in [facility]
Allergy/Medication List:
Allergies
Allergy/AdvReac Type Severity Reaction Status Date / Time
diazepam (From Valium) Allergy 'I get Verified 05/11/25 17:59
violent'
Home Medications
finasteride 5 mg tablet 5 mg PO DAILY Urinary issue 09/05/20
tamsulosin 0.4 mg capsule 0.4 mg PO DAILY Urinary issue 09/05/20
escitalopram oxalate 20 mg tablet 20 mg PO HS Mental health 10/10/22
rosuvastatin 40 mg tablet 40 mg PO HS High cholesterol 10/10/22
apixaban 5 mg tablet (Eliquis) 5 mg PO BID Blood Clot Prevention/Tx 07/06/24
oxycodone-acetaminophen 10 mg-325 mg tablet (Endocet) 1 tab PO Q6HPRN PRN severe pain 07/06/24
furosemide 20 mg tablet 20 mg PO DAILY #30 tabs 09/16/24
amlodipine 5 mg tablet 5 mg PO HS 05/11/25
dextroamphetamine-amphetamine 30 mg tablet 30 mg PO BID 05/11/25
dofetilide 500 mcg capsule 500 mcg PO BID 05/11/25
pantoprazole 20 mg tablet,delayed release 20 mg PO DAILY 05/11/25
prednisone 20 mg tablet 20 mg PO QPM 05/11/25
valsartan 320 mg tablet 320 mg PO HS 05/11/25
Review of Systems
-
History Source: Patient and Family
A 12 point ROS was completed and negative except as noted: Yes
Constitutional: Reports Fatigue; Denies Fever or Chills
EENT: Denies Sore Throat
Respiratory: Denies Cough or Trouble Breathing
Cardiac: Denies Chest Pain or Palpitations
Abdomen/GI: Denies Abdominal Pain, Nausea, Vomiting or Diarrhea
: Reports Difficulty Voiding and Urgency; Denies Dysuria, Frequency or Bleeding
Musculoskeletal: Reports Joint Pain; Denies Edema
Skin: Denies Itching or Rash
Neurological: Reports Dizzy; Denies Headache, Weakness or Numbness
Psych: Reports Anxiety and Other (Agitation / confusion)
Physical Exam
Vital Signs
Vital Signs
Temp Pulse Resp BP Pulse Ox
97.8 F 67 26 160/97 99
05/11/25 18:26 05/11/25 20:45 05/11/25 19:00 05/11/25 20:45 05/11/25 20:45
Physical Exam
General: Other (80y M in no acute distres at present. Awake and alert and appears at usual baseline.)
HEENT: Moist mucous membranes and PERRLA
Respiratory: Clear; No Wheezes, Rales or Rhonchi
Cardiac: S1/S2, Regular Rhythm and Murmur (II/ AYESHA)
GI: Soft, Non Distended, Normal Bowel Sounds and Other (Mild lower abdominal tenderness without rebound / guarding.)
Genito-urinary: Other (Weiss in place draining dark / aamir urine.)
Musculoskeletal: No Clubbing, No Cyanosis and No Edema
Neuro: AO x 3 and Nonfocal/grossly intact
Laboratory Results
-
05/11/25 18:23
05/11/25 18:
Laboratory Results
PT 13.1 Sec (11.4-14.6) 05/11/25:
INR 0.94 05/11/25 18:
APTT 28.2 Sec (23.4-35.0) 05/11/25 18:
Lactic Acid 1.8 mmol/L (0.7-2.0) 05/11/25 19:
Total Bilirubin 1.5 mg/dl (0.2-1.3) H 05/11/25:
AST 33 U/L (17-59) 05/11/25:
ALT 45 U/L (0-50) 05/11/25:
Alkaline Phosphatase 76 U/L (38-126) 05/11/25:
Impression/Plan
-
A/P: Patient is an 80y M with PMH significant for ASCVD, A-Fib, hypertension and chronic pain / chronic opioid dependence who presents to ED for evaluation of mental status change.
Acute Agitation / Delirium
- Admit for further evaluation and treatment.
- Multiple potential causative/ contributing issues here.
- ? med effect with new addition of prednisone (timing of symptom onset seems to correlate).
- ? withdrawal from missed / skipped doses in patient with long standing and high-dose opioid dependence.
- ? atypical seizure activity with description of vikas vu / 'looping' episodes.
- ? hypertensive emergency - though seems likely that elevated BP was due to agitation and not vice versa.
- Address individual issues as noted below.
- Patient appears back to baseline following Versed administration, placement of Weiss and taking his usual Percocet dose here in the ED.
- Follow for any new / recurrent symptoms.
- CT / CTA head were unremarkable. Check MRI in AM for further evaluation.
- Neurology consult for additional recommendations.
Hypertensive Emergency
- BP initially 204/96. Briefly on Cardene but BP improved dramatically along with agitation.
- Currently BP stable off of Cardene.
- Note that patient missed PM meds (including amlodipine and valsartan) for the past two nights.
- Give usual meds beginning this evening.
- IV hydralazine PRN.
- Adjust regimen as needed for adequate BP control.
ITP
- Platelets today are 69 which is decreased from most recent outpatient value of 114.
- Will decrease prednisone slightly to 15mg daily (from 20mg).
- Continue to follow platelet counts.
- Monitor for any bleeding episodes, etc.
Chronic Pain Syndrome
Chronic Opioid Dependence
ADHD
Polypharmacy
- Long-standing / high-dose opioid dependence.
- ? of recent missed / skipped dosing due to or as cause of confusion, etc.
- Continue oxycodone 10mg q4 PRN for now.
- Monitor for any evidence of sedation, withdrawal symptoms / agitation, etc.
- Would hold amphetamines acutely given agitation.
- Continue outpatient efforts at gradual decreased / titration of meds.
ASCVD
Paroxysmal Atrial Fibrillation
Chronic HFpEF
Aortic Stenosis s/p AVR
- Stable. No chest pain, dyspnea, etc.
- Does not appear grossly volume overloaded.
- Hold Lasix acutely.
- Continue CV med regimen including Eliquis for stroke risk reduction.
- Monitor for any evidence of bleeding.
BPH
- Patient with subjective urgency / difficulty passing urine.
- Weiss placed in the ED with only 500cc immediate return - but significant improvement in agitation.
- Continue finasteride / tamsulosin.
- Monitor I/Os.
- TOV prior to discharge.
DVT Prophylaxis: On Eliquis
Code Status: Full
[2025-05-11] MEDS: DIOVAN 320 MG PO (21:37)
[2025-05-11] MEDS: NORVASC 5 MG PO ×2 (21:40→23:09)
[2025-05-11] MEDS: LEXAPRO 20 MG PO (23:09)
[2025-05-11] MEDS: CRESTOR 40 MG PO (23:09)
[2025-05-11] MEDS: ROXICODONE 10 MG PO (23:44)
[2025-05-12] VITALS (15 sets, daily range): BP systolic 106–167; BP diastolic 62–149; PULSE 67; BMI 29.1
--- NOTE | 2025-05-12 | PTCARENOTE ---
Pt admitted to IMU. Pt AAOX3, forgetful at times. C/o general pain, see MAR for pain management. NSR in the tele monitor. Lung sounds WNL. abd round and obese. Weiss catheter intact. General bruising all over the body. Call vaughn within reach and
will cont w/ tx plan.
[2025-05-12] MEDS: ROXICODONE 10 MG PO ×4 (03:49→21:11)
[2025-05-12] MEDS: TYLENOL 325 MG PO ×4 (03:49→21:11)
[2025-05-12 04:29] LABS: Hematocrit 44.6 % (39.0-52.0); Hemoglobin 15.7 g/dL (13.0-18.0); Mean Corp Hgb Conc. 35.2 g/dL (33.0-37.0); Mean Corpuscular Hgb 30.2 pg (27.0-31.0); Mean Corpuscular Volume 85.8 fL (80.0-94.0); Mean Platelet Volume 10.5 fL (7.4-10.4); Platelet Count 73 10^3/uL (130-400); White Blood Cell Count 11.1 10^3/uL (4.8-10.8)
[2025-05-12 04:33] LABS: Blood Urea Nitrogen 19 mg/dl (9-20); Calcium 9.5 mg/dl (8.4-10.2); Carbon Dioxide 27 mmol/L (22-30); Chloride 104 mmol/L (98-107); Estimated Creatinine Clearance 90 ml/min; Glucose 128 mg/dl (70-99); Potassium 5.1 mmol/L (3.5-5.1); Sodium 135 mmol/L (135-145); eGFR > 60.00
[2025-05-12 05:09] LABS: TSH Reflex To Free T4 0.42 uIU/ml (0.47-4.68)
[2025-05-12 05:59] LABS: Free T4 0.96 ng/dl (0.78-2.19)
--- NOTE | 2025-05-12 07:17 | CON.NEURO ---
Consultation
Order
Date of Consultation: 05/12/25
Requesting Provider: García Sims DO
Reason for Consult: Altered mental status
Neurology Consultation Note.
HPI: This is an 80-year-old man who presented to [facility] on 05/11/2025 with encephalopathy.
The patient reports being in a 'memory loop' that kept repeating, which prompted his family to suggest he come to the hospital.
He was started on prednisone 80 mg for management of ITP, which resulted in significant personality changes. The patient describes becoming very angry and experiencing a complete change in his personality. About three weeks ago, the steroid dose
began to be tapered.
The patient reports experiencing forgetfulness and agitation. He also mentions having headaches for the first time in 4-5 years. He has been experiencing dizziness for about 6 years. The patient notes ongoing neck and back pain. He has a history of
multiple hand surgeries for carpal tunnel syndrome and experiences partial drop foot on the left side.
Mr. Bear reports longstanding numbness in the right side of his face and neck, which he describes as feeling 'different than the rest.' He has difficulty sensing vibration and reports that if he has his socks on or shoes off, he can't tell if
his shoes are off.
ER VS: 187/96, 205/96, 60, afebrile
EKG: NSR, QTc Int : 441 ms
PDMP:Oxycodone-Acetaminophen 10-325 240 tablets filled in on 04/19/2025, 03/15/2025, Dextroamp-Amphetamin 30 Mg 60 tablets filled in on 04/27/2025
Labs: Glucose�129, WBCs�11.7, platelets�69, normal sodium, creatinine, lactic acid, free T4
CT head wo contrast�no acute abnormalities
CTA head/neck�limited exam due to motion artifact, no clear significant stenosis
MAR: Oxycodone 10 mg given at 23:44 on 05/11/2025 and at 3:49 on 05/12/2025, midazolam 2 mg given at 19: 16 on 05/11/2025.
PMH: ITP, Persistent A-fib, HFpEF, CAD, HTN, DLP, BPH, GERD, SUMIT, Left foot drop, GIFTY, MDD, ADHD, LS polyradiculopathy, chronic pain syndrome
PSH: Cervical and lumbar laminectomies, CABG, bio AVR, rotator cuff repair, bilateral CTS, bilateral cataract surgery
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
FH:CAD
All: Diazepam
ROS: Constitutional: Negative. Negative for chills, fever and unexpected weight change.
HEENT: Positive for chronic hearing impairment, left ptosis
Eyes: Negative. Negative for photophobia, pain and visual disturbance.
Respiratory: Negative for cough, choking and shortness of breath.
Cardiovascular: Negative for chest pain, palpitations and leg swelling.
Gastrointestinal: Negative for abdominal pain and vomiting.
Endocrine: Negative. Negative for cold intolerance.
Genitourinary: Positive for intermittent urinary urgency
Musculoskeletal: Positive for neck pain, back pain
Skin: Negative for rash.
Allergic/Immunologic: Negative. Negative for immunocompromised state.
Neurological: Positive for forgetfulness, dizziness, right face and neck numbness, partial left foot drop.
Psychiatric: Positive for behavioral changes.
General: Well developed. In no acute distress.
Cardio: Regular rate and rhythm without murmur. Extremities are without cyanosis or edema.
Neuro:
Mental Status: Alert, oriented to person, place, and date. Normal attention and recall. Good fund of knowledge. Follows complex requests across the midline. Comprehension, naming, and repetition intact. Immediate and delayed recall 3/3.
Cranial Nerves: Pupils are equally round, surgical. EOMs full. Visual stewart full to confrontation. Left ptosis no nystagmus. V1-V3 intact to light touch and pinprick bilaterally, symmetric. Face symmetric. Impaired hearing AU. The palate
elevated well. SCMs and traps 5/5. Tongue midline. No dysarthria.
Motor: Normal bulk and tone. No pronator or arm drift. Strength 5/5 throughout except for left dorsiflexion 4 out of 5. No clonus.
Reflexes: 1+ throughout the upper extremities and 0 knees. 0/2 in AJs. Plantar responses flexor bilaterally.
Sensory: Absent vibration at the toes and ankles
Coordination: No dysmetria or tremor.
Gait: deferred
Assessment and Plan:
I. Acute encephalopathy, mixed (vascular, toxic)
II. Hypertensive emergency
III. Distal symmetric polyneuropathy
IV. Persistent A-fib
V. ITP
- Fall precautions
- Please check B12, thiamine, SPEP
- Brain MRI without gifty, CTA head/neck to rule out PE, aneurysm/carotid artery dissection.
- Outpatient neuro-ophthalmology consult
- Will obtain collateral history from patient's
I personally reviewed all radiology and labs along with past medical records pertinent to current medical problems. Total time spent in patient care is 60 minutes.
Thank you for allowing us to participate in the care of this patient. We will continue to follow. Please do not hesitate to contact us with any questions or concerns.
Subjective/Objective
Subjective Data
Date of Service: May 12, 2025
Objective Data
Vital Signs
Temp Pulse Resp BP Pulse Ox
36.4 C 66 13 156/95 97
05/12/25 03:54 05/12/25 04:00 05/12/25 04:00 05/12/25 04:00 05/12/25 04:00
Lab Results
05/12/25 04:05
05/12/25 04:05
PT 13.1 Sec (11.4-14.6) 05/11/25 18:23
INR 0.94 05/11/25 18:23
APTT 28.2 Sec (23.4-35.0) 05/11/25 18:23
Sodium 135 mmol/L (135-145) 05/12/25 04:05
Potassium 5.1 mmol/L (3.5-5.1) 05/12/25 04:05
BUN 19 mg/dl (9-20) 05/12/25 04:05
Glucose 128 mg/dl (70-99) H 05/12/25 04:05
Calcium 9.5 mg/dl (8.4-10.2) 05/12/25 04:05
Patient Allergies
diazepam (From Valium) Allergy (Verified 05/11/25 17:59)
'I get violent'
Medications
-
Active Medications
Generic Name Dose Route Start Last Admin
Trade Name Freq PRN Reason Stop Dose Admin
Acetaminophen 325 mg 05/11/25 22:41 05/12/25 03:49
Acetaminophen 325 Mg Tablet PO 06/08/25 22:40 325 mg
Q4HPRN PRN Administration
MODERATE-SEVERE PAIN
Amlodipine Besylate 5 mg 05/11/25 22:36 05/11/25 23:09
Amlodipine 5 Mg Tablet PO 06/08/25 22:35 5 mg
HS ROSA ELENA Administration
Apixaban 5 mg 05/12/25 08:00
Apixaban (Eliquis) 5 Mg Tablet PO 06/09/25 07:59
BID ROSA ELENA
Dofetilide 500 mcg 05/12/25 08:00
Dofetilide 500 Mcg Capsule PO 06/09/25 07:59
BID ROSA ELENA
Escitalopram Oxalate 20 mg 05/11/25 22:36 05/11/25 23:09
Escitalopram 20 Mg Tablet PO 06/08/25 22:35 20 mg
HS ROSA ELENA Administration
Finasteride 5 mg 05/12/25 08:00
Finasteride 5 Mg Tablet PO 06/09/25 07:59
DAILY ROSA ELENA
Hydralazine HCl 10 mg 05/11/25 22:36
Hydralazine 20 Mg/Ml Vial IV 06/08/25 22:35
Q6HPRN PRN
SBP > 180
Lorazepam 1 mg 05/11/25 22:36
Lorazepam 2 Mg/Ml Vial IV 06/08/25 22:35
Q4HPRN PRN
Agitation
Oxycodone HCl 10 mg 05/11/25 22:40 05/12/25 03:49
Oxycodone 10 Mg Regular Release Tablet PO 05/25/25 22:39 10 mg
Q4HPRN PRN Administration
moderate - severe pain
Pantoprazole Sodium 20 mg 05/12/25 08:00
Pantoprazole 20 Mg Delayed Release Tablet PO 06/09/25 07:59
DAILY ROSA ELENA
Prednisone 15 mg 05/12/25 18:00
Prednisone 5 Mg Tablet PO 06/09/25 17:59
QPM ROSA ELENA
Rosuvastatin Calcium 40 mg 05/11/25 22:36 05/11/25 23:09
Rosuvastatin (Crestor) 40 Mg Tablet PO 06/08/25 22:35 40 mg
HS ROSA ELENA Administration
Sodium Chloride 0 flush 05/11/25 22:00
Sodium Chloride 0.9% (Flush) Syringe IV 06/08/25 21:59
PER PROTOCOL ROSA ELENA
Tamsulosin HCl 0.4 mg 05/12/25 08:00
Tamsulosin 0.4 Mg Capsule PO 06/09/25 07:59
DAILY ROSA ELENA
Valsartan 320 mg 05/12/25 22:00
Valsartan 160 Mg Tablet PO 06/09/25 21:59
HS ROSA ELENA
Home Medications
�Medication �Instructions �Recorded
finasteride 5 mg tablet 5 mg PO DAILY Urinary issue 09/05/20
tamsulosin 0.4 mg capsule 0.4 mg PO DAILY Urinary issue 09/05/20
escitalopram oxalate 20 mg tablet 20 mg PO HS Mental health 10/10/22
rosuvastatin 40 mg tablet 40 mg PO HS High cholesterol 10/10/22
apixaban 5 mg tablet (Eliquis) 5 mg PO BID Blood Clot 07/06/24
Prevention/Tx
oxycodone-acetaminophen 10 mg-325 1 tab PO Q6HPRN PRN severe pain 07/06/24
mg tablet (Endocet)
furosemide 20 mg tablet 20 mg PO DAILY #30 tabs 09/16/24
amlodipine 5 mg tablet 5 mg PO HS 05/11/25
dextroamphetamine-amphetamine 30 30 mg PO BID 05/11/25
mg tablet
dofetilide 500 mcg capsule 500 mcg PO BID 05/11/25
pantoprazole 20 mg tablet,delayed 20 mg PO DAILY 05/11/25
release
prednisone 20 mg tablet 20 mg PO QPM 05/11/25
valsartan 320 mg tablet 320 mg PO HS 05/11/25
Vital Signs and Labs
-
Vital Signs and Labs:
Vital Signs
Temp Pulse Resp BP Pulse Ox
36.4 C 66 13 156/95 97
05/12/25 03:54 05/12/25 04:00 05/12/25 04:00 05/12/25 04:00 05/12/25 04:00
Lab Results
05/12/25 04:05
05/12/25 04:05
PT 13.1 Sec (11.4-14.6) 05/11/25 18:23
INR 0.94 05/11/25 18:23
APTT 28.2 Sec (23.4-35.0) 05/11/25 18:23
Sodium 135 mmol/L (135-145) 05/12/25 04:05
Potassium 5.1 mmol/L (3.5-5.1) 05/12/25 04:05
BUN 19 mg/dl (9-20) 05/12/25 04:05
Glucose 128 mg/dl (70-99) H 05/12/25 04:05
Calcium 9.5 mg/dl (8.4-10.2) 05/12/25 04:05
Medications
-
Medications:
Generic Name Dose Route Start Last Admin
Trade Name Freq PRN Reason Stop Dose Admin
Acetaminophen 325 mg 05/11/25 22:41 05/12/25 03:49
Acetaminophen 325 Mg Tablet PO 06/08/25 22:40 325 mg
Q4HPRN PRN Administration
MODERATE-SEVERE PAIN
Amlodipine Besylate 5 mg 05/11/25 22:36 05/11/25 23:09
Amlodipine 5 Mg Tablet PO 06/08/25 22:35 5 mg
HS ROSA ELENA Administration
Apixaban 5 mg 05/12/25 08:00
Apixaban (Eliquis) 5 Mg Tablet PO 06/09/25 07:59
BID ROSA ELENA
Dofetilide 500 mcg 05/12/25 08:00
Dofetilide 500 Mcg Capsule PO 06/09/25 07:59
BID ROSA ELENA
Escitalopram Oxalate 20 mg 05/11/25 22:36 05/11/25 23:09
Escitalopram 20 Mg Tablet PO 06/08/25 22:35 20 mg
HS ROSA ELENA Administration
Finasteride 5 mg 05/12/25 08:00
Finasteride 5 Mg Tablet PO 06/09/25 07:59
DAILY ROSA ELENA
Hydralazine HCl 10 mg 05/11/25 22:36
Hydralazine 20 Mg/Ml Vial IV 06/08/25 22:35
Q6HPRN PRN
SBP > 180
Lorazepam 1 mg 05/11/25 22:36
Lorazepam 2 Mg/Ml Vial IV 06/08/25 22:35
Q4HPRN PRN
Agitation
Oxycodone HCl 10 mg 05/11/25 22:40 05/12/25 03:49
Oxycodone 10 Mg Regular Release Tablet PO 05/25/25 22:39 10 mg
Q4HPRN PRN Administration
moderate - severe pain
Pantoprazole Sodium 20 mg 05/12/25 08:00
Pantoprazole 20 Mg Delayed Release Tablet PO 06/09/25 07:59
DAILY ROSA ELENA
Prednisone 15 mg 05/12/25 18:00
Prednisone 5 Mg Tablet PO 06/09/25 17:59
QPM ROSA ELENA
Rosuvastatin Calcium 40 mg 05/11/25 22:36 05/11/25 23:09
Rosuvastatin (Crestor) 40 Mg Tablet PO 06/08/25 22:35 40 mg
HS ROSA ELENA Administration
Sodium Chloride 0 flush 05/11/25 22:00
Sodium Chloride 0.9% (Flush) Syringe IV 06/08/25 21:59
PER PROTOCOL ROSA ELENA
Tamsulosin HCl 0.4 mg 05/12/25 08:00
Tamsulosin 0.4 Mg Capsule PO 06/09/25 07:59
DAILY ROSA ELENA
Valsartan 320 mg 05/12/25 22:00
Valsartan 160 Mg Tablet PO 06/09/25 21:59
HS ROSA ELENA
Home Medications
-
Home Medications
finasteride 5 mg tablet 5 mg PO DAILY Urinary issue 09/05/20
tamsulosin 0.4 mg capsule 0.4 mg PO DAILY Urinary issue 09/05/20
escitalopram oxalate 20 mg tablet 20 mg PO HS Mental health 10/10/22
rosuvastatin 40 mg tablet 40 mg PO HS High cholesterol 10/10/22
apixaban 5 mg tablet (Eliquis) 5 mg PO BID Blood Clot Prevention/Tx 07/06/24
oxycodone-acetaminophen 10 mg-325 mg tablet (Endocet) 1 tab PO Q6HPRN PRN severe pain 07/06/24
furosemide 20 mg tablet 20 mg PO DAILY #30 tabs 09/16/24
amlodipine 5 mg tablet 5 mg PO HS 05/11/25
dextroamphetamine-amphetamine 30 mg tablet 30 mg PO BID 05/11/25
dofetilide 500 mcg capsule 500 mcg PO BID 05/11/25
pantoprazole 20 mg tablet,delayed release 20 mg PO DAILY 05/11/25
prednisone 20 mg tablet 20 mg PO QPM 05/11/25
valsartan 320 mg tablet 320 mg PO HS 05/11/25
[2025-05-12 07:26] LABS: Glycohemoglobin (HgbA1c) 6.2 % (4.0-5.6)
[2025-05-12] MEDS: PROTONIX 20 MG PO (09:08)
[2025-05-12] MEDS: PROSCAR 5 MG PO (09:08)
[2025-05-12] MEDS: ELIQUIS 5 MG PO ×2 (09:09→20:19)
[2025-05-12] MEDS: TIKOSYN 500 MCG PO ×2 (09:09→20:19)
[2025-05-12] MEDS: FLOMAX 0.4 MG PO (09:09)
--- NOTE | 2025-05-12 10:41 | PTCARENOTE ---
pt currently off monitor for MRI
--- NOTE | 2025-05-12 13:20 | W.PN.HOSP.TC ---
Today's Communication/Plan
-
Monitor vital signs see plan
MRI brain
Monitor mental status
cw prednisone
PT
Assessment / Plan
Assessment / Plan
General: Other (80y M in no acute distres at present. Awake and alert and appears at usual baseline.)
HEENT: Moist mucous membranes and PERRLA
Respiratory: Clear; No Wheezes, Rales or Rhonchi
Cardiac: S1/S2, Regular Rhythm and Murmur (II/ AYESHA)
GI: Soft, Non Distended, Normal Bowel Sounds and Other (Mild lower abdominal tenderness without rebound / guarding.)
Genito-urinary: Other (Weiss in place draining dark / aamir urine.)
Musculoskeletal: No Clubbing, No Cyanosis and No Edema
Neuro: AO x 3 and Nonfocal/grossly intact
Acute Agitation / Delirium
- Multiple potential causative/ contributing issues here. This could be secondary to steroids, high-dose opioid dependence, hypertensive emergency or atypical seizure
- Patient appears back to baseline following Versed administration, placement of Weiss and taking his usual Percocet dose here in the ED.
- Follow for any new / recurrent symptoms.
- CT / CTA head were unremarkable. Check MRI brain per neurology
Neurology following
Hypertensive Emergency
- BP initially 204/96. Briefly on Cardene but BP improved dramatically along with agitation.
- Currently BP stable off of Cardene.
- Note that patient missed PM meds (including amlodipine and valsartan) for the past two nights.
Continue with usual meds
- IV hydralazine PRN.
- Adjust regimen as needed for adequate BP control.
ITP
- Platelets today are 69 which is decreased from most recent outpatient value of 114. plts now 73
- Will decrease prednisone slightly to 15mg daily (from 20mg).
- Continue to follow platelet counts.
- Monitor for any bleeding episodes, etc.
Chronic Pain Syndrome
Chronic Opioid Dependence
ADHD
Polypharmacy
- Long-standing / high-dose opioid dependence.
- ? of recent missed / skipped dosing due to or as cause of confusion, etc.
- Continue oxycodone 10mg q4 PRN for now.
- Monitor for any evidence of sedation, withdrawal symptoms / agitation, etc.
- Would hold amphetamines acutely given agitation.
- Continue outpatient efforts at gradual decreased / titration of meds.
ASCVD
Paroxysmal Atrial Fibrillation
Chronic HFpEF
Aortic Stenosis s/p AVR
- Stable. No chest pain, dyspnea, etc.
- Does not appear grossly volume overloaded.
- Hold Lasix acutely.
- Continue CV med regimen including Eliquis for stroke risk reduction.
- Monitor for any evidence of bleeding.
BPH
- Patient with subjective urgency / difficulty passing urine.
- Weiss placed in the ED with only 500cc immediate return - but significant improvement in agitation.
- Continue finasteride / tamsulosin. Suspect patient is not compliant to these medications.
- Monitor I/Os.
- TOV prior to discharge.
DVT Prophylaxis: On Eliquis
Code Status: Full
Anticipated Discharge: Within 24 hours
Subjective/Interval History
-
Date of Service: May 12, 2025
Denies pain
Objective Data
-
Labs:
Laboratory Results
05/12/25
04:05
WBC 11.1 H
Hgb 15.7
Hct 44.6
Plt Count 73 L
Sodium 135
Potassium 5.1
Chloride 104
Carbon Dioxide 27
BUN 19
Creatinine 0.6 L
Glucose 128 H
Calcium 9.5
Vital Signs:
Vital Signs
Temp Pulse Resp BP Pulse Ox
98.5 F 74 16 167/94 98
05/12/25 11:44 05/12/25 10:00 05/12/25 10:00 05/12/25 10:00 05/12/25 10:44
I&O
05/11/25 05/12/25 05/13/25
06:59 06:59 06:59
Intake Total 750 / 750
Output Total 2500 / 2500
Balance -1750 / -1750
[2025-05-12 13:28] LABS: Lyme Antibody Screen, EIA Negative (Negative)
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
--- NOTE | 2025-05-12 15:48 | W.RAPID.EEG ---
Rapid EEG
-
Results:
ELECTROENCEPHALOGRAM REPORT.
Test Date:05/11/2025
History: This is an 80-year-old man with change in behavior.
Medications: Escitalopram, dextroamphetamine.
Patient Consent:�Correct patient identified.
Description of Procedure:�This EEG was obtained using a 10-lead, 8-channel system positioned circumferentially without any parasagittal coverage (rapid EEG). Computer-selected EEG is reviewed, as well as background features and overall clinically
significant events. The Clarity algorithm was utilized and implemented to provide analysis of underlying activity and seizure/status detection to facilitate reading.
Description of Recording:�During very limited record showed the background activity of this EEG consisted of a posterior dominant rhythm of approximately 9-10 Hz that is well-developed, symmetric, and reactive to eye opening. The rest of the
tracing was limited by movement artifacts and high impedance related limitations.
Impression:�Technically unsatisfactory, probably normal very limited EEG during the awake state.
Comment:�A normal EEG does not rule out the diagnosis of a seizure disorder; clinical correlation is advised. If there is still persistent suspicion for continued seizure-like activity, it is advised to obtain an electroencephalogram with the 10-20
International system for improved spatial resolution and parasagittal coverage.
[2025-05-12] MEDS: DELTASONE 15 MG PO (17:45)
[2025-05-12] MEDS: CRESTOR 40 MG PO (21:09)
[2025-05-12] MEDS: NORVASC 5 MG PO (21:10)
[2025-05-12] MEDS: DIOVAN 320 MG PO (21:10)
[2025-05-12] MEDS: LEXAPRO 20 MG PO (21:10)
[2025-05-13] VITALS (8 sets, daily range): BP systolic 121–151; BP diastolic 60–93; BMI 29.4
--- NOTE | 2025-05-13 01:36 | PTCARENOTE ---
Patient AAOx3. Pt in NSR on the monitor with prolonged QT. Lungs clear b/l, remains on room air. Pt states he feels 'dizzy while walking'. Pt is aware of possible MRI tomorrow. Pt has chronic back pain requesting PRN Oxycodone see JAN. Pt requests
to sleep. Call vaughn within reach. Bed alarm on.
[2025-05-13] MEDS: ROXICODONE 10 MG PO ×4 (04:57→23:01)
[2025-05-13] MEDS: TYLENOL 325 MG PO ×4 (04:58→23:01)
[2025-05-13 05:41] LABS: Blood Urea Nitrogen 24 mg/dl (9-20); Calcium 9.4 mg/dl (8.4-10.2); Carbon Dioxide 26 mmol/L (22-30); Chloride 105 mmol/L (98-107); Estimated Creatinine Clearance 77 ml/min; Glucose 127 mg/dl (70-99); Potassium 4.6 mmol/L (3.5-5.1); Sodium 136 mmol/L (135-145); eGFR > 60.00
[2025-05-13 05:42] LABS: % Basophils 0.5 % (0-2); % Eosinophils 1.2 % (0-6); % Immature Granulocytes 1.5 % (0-0.5); % Lymphocytes 17.5 % (20.5-51.1); % Monocytes 8.5 % (1.7-9.3); % Neutrophils 70.8 % (42.2-75.2); Absolute Basophils 0.1 10^3/uL (0-0.2); Absolute Eosinophils 0.1 10^3/uL (0-0.7); Absolute Immature Granulocytes 0.2 10^3/uL (0-0.05); Absolute Lymphocytes 1.7 10^3/uL (1.2-3.4); Absolute Monocytes 0.8 10^3/uL (0.1-0.6); Absolute Neutrophils 6.9 10^3/uL (1.4-6.5); Hematocrit 46.5 % (39.0-52.0); Hemoglobin 16.1 g/dL (13.0-18.0); Mean Corp Hgb Conc. 34.6 g/dL (33.0-37.0); Mean Corpuscular Hgb 29.8 pg (27.0-31.0); Mean Platelet Volume 11.2 fL (7.4-10.4); Nucleated Red Blood Cells % 0 % (-); Platelet Count 79 10^3/uL (130-400); Red Blood Cell Count 5.41 10^6/uL (4.70-6.10); Red Cell Dist. Width 14.1 % (11.5-14.5); White Blood Cell Count 9.8 10^3/uL (4.8-10.8)
[2025-05-13 05:49] LABS: C-Reactive Protein < 5.00 mg/L (0.0-10.00)
[2025-05-13 06:35] LABS: Vitamin B12 483 pg/ml (239-931)
[2025-05-13 06:53] LABS: Erythrocyte Sed Rate 6 mm/hour (0-20)
--- NOTE | 2025-05-13 08:07 | W.PN.NEURO.1 ---
Today's Communication / Plan
-
.
Subjective/Objective
Subjective Data
Date of Service: May 13, 2025
Neurology follow-up note.
Mr. Dionisio Rebollar reports no complaints. He denies having headache, change in vision or strength.
Labs: C-reactive protein�normal, vitamin B12�483,
Brain MRI wo gifty-mild to moderate chronic microvascular white matter ischemic disease. Moderate atrophy.
MRA head-no evidence of aneurysm, stenosis or occlusion.
PMH: ITP, Persistent A-fib, HFpEF, CAD, HTN, DLP, BPH, GERD, SUMIT, Left foot drop, GIFTY, MDD, ADHD, LS polyradiculopathy, chronic pain syndrome
PSH: Cervical and lumbar laminectomies, CABG, bio AVR, rotator cuff repair, bilateral CTS, bilateral cataract surgery
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
FH:CAD
All: Diazepam
ROS: Constitutional: Negative. Negative for chills, fever and unexpected weight change.
HEENT: Positive for chronic hearing impairment, left ptosis
Eyes: Negative. Negative for photophobia, pain and visual disturbance.
Respiratory: Negative for cough, choking and shortness of breath.
Cardiovascular: Negative for chest pain, palpitations and leg swelling.
Gastrointestinal: Negative for abdominal pain and vomiting.
Endocrine: Negative. Negative for cold intolerance.
Genitourinary: Positive for intermittent urinary urgency
Musculoskeletal: Positive for neck pain, back pain
Skin: Negative for rash.
Allergic/Immunologic: Negative. Negative for immunocompromised state.
Neurological: Positive for forgetfulness, dizziness, right face and neck numbness, partial left foot drop.
Psychiatric: Positive for behavioral changes.
General: Well developed. In no acute distress.
Cardio: Regular rate and rhythm without murmur. Extremities are without cyanosis or edema.
Neuro:
Mental Status: Alert, oriented to person, place, and date. Normal attention and recall. Good fund of knowledge. Follows complex requests across the midline. Comprehension, naming, and repetition intact.
Cranial Nerves: Pupils are equally round, surgical. EOMs full. Visual stewart full to confrontation. Left ptosis no nystagmus. V1-V3 intact to light touch and pinprick bilaterally, symmetric. Face symmetric. Impaired hearing AU. The palate
elevated well. SCMs and traps 5/5. Tongue midline. No dysarthria.
Motor: Normal bulk and tone. No pronator or arm drift. Strength 5/5 throughout except for left dorsiflexion 4 out of 5. No clonus.
Reflexes: 1+ throughout the upper extremities and 0 knees. 0/2 in AJs. Plantar responses flexor bilaterally.
Sensory: Absent vibration at the toes and ankles
Coordination: No dysmetria or tremor.
Gait: deferred
Assessment and Plan:
I. Acute encephalopathy, mixed (vascular, toxic), clinically improved
II. Hypertensive emergency
III. Distal symmetric polyneuropathy
IV. Persistent A-fib
V. ITP
- Fall precautions
- PT
-Continue Eliquis for stroke prophylaxis
- Outpatient neurology follow-up
I personally reviewed all radiology and labs along with past medical records pertinent to current medical problems. Total time spent in patient care is 35 minutes.
Thank you for allowing us to participate in the care of this patient. Please do not hesitate to contact us with any questions or concerns.
Objective Data
Vital Signs
Temp Pulse Resp BP Pulse Ox
36.4 C 57 11 127/68 95
05/13/25 03:18 05/13/25 06:00 05/13/25 06:00 05/13/25 06:00 05/13/25 03:18
Lab Results
05/13/25 05:10
05/13/25 05:08
PT 13.1 Sec (11.4-14.6) 05/11/25 18:23
INR 0.94 05/11/25 18:23
APTT 28.2 Sec (23.4-35.0) 05/11/25 18:23
Sodium 136 mmol/L (135-145) 05/13/25 05:08
Potassium 4.6 mmol/L (3.5-5.1) 05/13/25 05:08
BUN 24 mg/dl (9-20) H 05/13/25 05:08
Glucose 127 mg/dl (70-99) H 05/13/25 05:08
Calcium 9.4 mg/dl (8.4-10.2) 05/13/25 05:08
Vitamin B12 483 pg/ml (239-931) 05/13/25 05:10
Patient Allergies
diazepam (From Valium) Allergy (Verified 05/11/25 17:59)
'I get violent'
Vital Signs and Labs
-
Vital Signs and Labs:
Vital Signs
Temp Pulse Resp BP Pulse Ox
36.7 C 66 13 124/76 95
05/13/25 11:32 05/13/25 10:00 05/13/25 08:01 05/13/25 08:01 05/13/25 03:18
Lab Results
05/13/25 05:10
05/13/25 05:08
PT 13.1 Sec (11.4-14.6) 05/11/25 18:23
INR 0.94 05/11/25 18:23
APTT 28.2 Sec (23.4-35.0) 05/11/25 18:23
Sodium 136 mmol/L (135-145) 05/13/25 05:08
Potassium 4.6 mmol/L (3.5-5.1) 05/13/25 05:08
BUN 24 mg/dl (9-20) H 05/13/25 05:08
Glucose 127 mg/dl (70-99) H 05/13/25 05:08
Calcium 9.4 mg/dl (8.4-10.2) 05/13/25 05:08
Vitamin B12 483 pg/ml (918-351) 05/13/25 05:10
Medications
-
Medications:
Generic Name Dose Route Start Last Admin
Trade Name Freq PRN Reason Stop Dose Admin
Acetaminophen 325 mg 05/11/25 22:41 05/13/25 09:48
Acetaminophen 325 Mg Tablet PO 06/08/25 22:40 325 mg
Q4HPRN PRN Administration
MODERATE-SEVERE PAIN
Amlodipine Besylate 5 mg 05/11/25 22:36 05/12/25 21:10
Amlodipine 5 Mg Tablet PO 06/08/25 22:35 5 mg
HS ROSA ELENA Administration
Apixaban 5 mg 05/12/25 08:00 05/13/25 08:22
Apixaban (Eliquis) 5 Mg Tablet PO 06/09/25 07:59 5 mg
BID ROSA ELENA Administration
Dofetilide 500 mcg 05/12/25 08:00 05/13/25 08:22
Dofetilide 500 Mcg Capsule PO 06/09/25 07:59 500 mcg
BID ROSA ELENA Administration
Escitalopram Oxalate 20 mg 05/11/25 22:36 05/12/25 21:10
Escitalopram 20 Mg Tablet PO 06/08/25 22:35 20 mg
HS ROSA ELENA Administration
Finasteride 5 mg 05/12/25 08:00 05/13/25 08:22
Finasteride 5 Mg Tablet PO 06/09/25 07:59 5 mg
DAILY ROSA ELENA Administration
Hydralazine HCl 10 mg 05/11/25 22:36
Hydralazine 20 Mg/Ml Vial IV 06/08/25 22:35
Q6HPRN PRN
SBP > 180
Lorazepam 1 mg 05/12/25 20:13
Lorazepam 1 Mg Tablet PO 06/09/25 20:12
Q4HPRN PRN
Agitation
Oxycodone HCl 10 mg 05/11/25 22:40 05/13/25 09:47
Oxycodone 10 Mg Regular Release Tablet PO 05/25/25 22:39 10 mg
Q4HPRN PRN Administration
moderate - severe pain
Pantoprazole Sodium 20 mg 05/12/25 08:00 05/13/25 08:22
Pantoprazole 20 Mg Delayed Release Tablet PO 06/09/25 07:59 20 mg
DAILY ROSA ELENA Administration
Prednisone 15 mg 05/12/25 18:00 05/12/25 17:45
Prednisone 5 Mg Tablet PO 06/09/25 17:59 15 mg
QPM ROSA ELENA Administration
Rosuvastatin Calcium 40 mg 05/11/25 22:36 05/12/25 21:09
Rosuvastatin (Crestor) 40 Mg Tablet PO 06/08/25 22:35 40 mg
HS ROSA ELENA Administration
Sodium Chloride 0 flush 05/11/25 22:00
Sodium Chloride 0.9% (Flush) Syringe IV 06/08/25 21:59
PER PROTOCOL ROSA ELENA
Tamsulosin HCl 0.4 mg 05/12/25 08:00 05/13/25 08:22
Tamsulosin 0.4 Mg Capsule PO 06/09/25 07:59 0.4 mg
DAILY ROSA ELENA Administration
Valsartan 320 mg 05/12/25 22:00 05/12/25 21:10
Valsartan 160 Mg Tablet PO 06/09/25 21:59 320 mg
HS ROSA ELENA Administration
Home Medications
-
Home Medications
finasteride 5 mg tablet 5 mg PO DAILY Urinary issue 09/05/20
tamsulosin 0.4 mg capsule 0.4 mg PO DAILY Urinary issue 09/05/20
escitalopram oxalate 20 mg tablet 20 mg PO HS Mental health 10/10/22
rosuvastatin 40 mg tablet 40 mg PO HS High cholesterol 10/10/22
apixaban 5 mg tablet (Eliquis) 5 mg PO BID Blood Clot Prevention/Tx 07/06/24
oxycodone-acetaminophen 10 mg-325 mg tablet (Endocet) 1 tab PO Q6HPRN PRN severe pain 07/06/24
furosemide 20 mg tablet 20 mg PO DAILY #30 tabs 09/16/24
amlodipine 5 mg tablet 5 mg PO HS 05/11/25
dextroamphetamine-amphetamine 30 mg tablet 30 mg PO BID 05/11/25
dofetilide 500 mcg capsule 500 mcg PO BID 05/11/25
pantoprazole 20 mg tablet,delayed release 20 mg PO DAILY 05/11/25
prednisone 20 mg tablet 20 mg PO QPM 05/11/25
valsartan 320 mg tablet 320 mg PO HS 05/11/25
[2025-05-13] MEDS: PROTONIX 20 MG PO (08:22)
[2025-05-13] MEDS: FLOMAX 0.4 MG PO (08:22)
[2025-05-13] MEDS: PROSCAR 5 MG PO (08:22)
[2025-05-13] MEDS: ELIQUIS 5 MG PO ×2 (08:22→21:00)
[2025-05-13] MEDS: TIKOSYN 500 MCG PO ×2 (08:22→21:00)
--- NOTE | 2025-05-13 09:22 | W.RAPID.EEG ---
Rapid EEG
-
Procedure Date: 05/11/25
Results:
Point of Care EEG Procedure Note
Patient name: TIAGO MACIAS
Medical ID: [id number]
Date of : 1945
Age: 80
IMPRESSION:
No evidence of status epilepticus
Recording 1 Duration: 2025-05-11 19:03:23 - 2025-05-11 19:38:51
Recording Total Time: 00:35:28 (35 minutes)
Ordering Physician: SARAH
Recording Technique: This EEG was obtained using a 10 lead, 8 channel circumferential rapid EEG with no parasagittal coverage.
Performed with Lux Veliz Status Epilepticus Monitor, ICD-10 [id number]
Clinical History: TIAGO MACIAS is a 80 year old Undifferentiated AMS patient undergoing EEG to screen for non-convulsive status epilepticus.
Primary Indication: Undifferentiated AMS
Location: ED
Report prepared by: Milad Rajan
Report generated on: May 13, 2025 9:23 AM UTC-4
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
--- NOTE | 2025-05-13 10:48 | PTCARENOTE ---
Pt reported a feeling he described as 'looping' or a sensation of constant vikas vu. Noted that Pt's demenor had changed from previous encounters, as now Pt seemed drowsy, almost somnolent; Pt was slow to respond and required a lot of redirection
in order to follow simple commands. Also observed Pt gait was slow and unsteady, which was a notable change from when ambulated earlier. Once Pt returned from MRI, all observed changes had resolved and Pt no longer felt like he was 'looping'.
Will continue to monitor and assess.
--- NOTE | 2025-05-13 10:50 | VNURNOTE ---
Home Health Liaison spoke with patient's spouse Janee to discuss [facility] nurse/therapy, visits, schedule and homebound status. She is familiar with [facility], pt had services in 2023 and is agreeable. She understands that visits at home will be 2-3 x per
week to assess and teach medical management.
Patient is aware that [facility] will contact them for start of care in 1-2 days after discharge from . Will watch if DC with bob cath. Per spouse, pt has had bob cath before.
[facility] referral completed in [facility].
--- NOTE | 2025-05-13 13:31 | W.PN.HOSP.TC ---
Today's Communication/Plan
-
Monitor vital signs see plan
Voiding trial tomorrow
Awaiting transfer to floors
Continue monitor mental status
PT
Assessment / Plan
Assessment / Plan
General: Other (80y M in no acute distres at present. Awake and alert and appears at usual baseline.)
HEENT: Moist mucous membranes and PERRLA
Respiratory: Clear; No Wheezes, Rales or Rhonchi
Cardiac: S1/S2, Regular Rhythm and Murmur (II/ AYESHA)
GI: Soft, Non Distended, Normal Bowel Sounds and Other (Mild lower abdominal tenderness without rebound / guarding.)
Genito-urinary: + bob
Musculoskeletal: No Clubbing, No Cyanosis and No Edema
Neuro: AO x 3 and Nonfocal/grossly intact
Acute Agitation /TME
- Multiple potential causative/ contributing issues here. This could be secondary to steroids, high-dose opioid dependence, hypertensive emergency or atypical seizure. Suspect likely secondary to TME secondary to urinary retention, steroids
- Patient appears back to baseline following Versed administration, placement of Bob and taking his usual Percocet dose here in the ED.
- Follow for any new / recurrent symptoms.
- CT / CTA head were unremarkable. MRI brain without CVA. Neurology following
Neurology following
Hypertensive Emergency
- BP initially 204/96. Briefly on Cardene but BP improved dramatically along with agitation.
- Currently BP stable off of Cardene.
- Note that patient missed PM meds (including amlodipine and valsartan) for the past two nights.
Continue with usual meds
- IV hydralazine PRN.
- Adjust regimen as needed for adequate BP control.
ITP
- Platelets today are 69 which is decreased from most recent outpatient value of 114. plts now 79
- Will decrease prednisone slightly to 15mg daily (from 20mg).
- Continue to follow platelet counts.
- Monitor for any bleeding episodes, etc.
Chronic Pain Syndrome
Chronic Opioid Dependence
ADHD
Polypharmacy
- Long-standing / high-dose opioid dependence.
- ? of recent missed / skipped dosing due to or as cause of confusion, etc.
- Continue oxycodone 10mg q4 PRN for now.
- Monitor for any evidence of sedation, withdrawal symptoms / agitation, etc.
- Would hold amphetamines acutely given agitation.
- Continue outpatient efforts at gradual decreased / titration of meds.
ASCVD
Paroxysmal Atrial Fibrillation
Chronic HFpEF
Aortic Stenosis s/p AVR
- Stable. No chest pain, dyspnea, etc.
- Does not appear grossly volume overloaded.
- Hold Lasix acutely.
- Continue CV med regimen including Eliquis for stroke risk reduction.
- Monitor for any evidence of bleeding.
BPH
- Patient with subjective urgency / difficulty passing urine.
- Bob placed in the ED with only 500cc immediate return - but significant improvement in agitation.
- Continue finasteride / tamsulosin. Suspect patient is not compliant to these medications.
- Monitor I/Os.
- TOV prior to discharge.
DVT Prophylaxis: On Eliquis
Code Status: Full
Anticipated Discharge: Within 24 hours
Subjective/Interval History
-
Date of Service: May 13, 2025
denies pain
Objective Data
-
Labs:
Laboratory Results
05/13/25 05/13/25
05:08 05:10
WBC 9.8
Hgb 16.1
Hct 46.5
Plt Count 79 L
Sodium 136
Potassium 4.6
Chloride 105
Carbon Dioxide 26
BUN 24 H
Creatinine 0.7
Glucose 127 H
Calcium 9.4
Vital Signs:
Vital Signs
Temp Pulse Resp BP Pulse Ox
98.1 F 66 13 124/76 95
05/13/25 11:32 05/13/25 10:00 05/13/25 08:01 05/13/25 08:01 05/13/25 03:18
I&O
05/12/25 05/13/25 05/14/25
06:59 06:59 06:59
Intake Total 750 / 750 420 / 420
Output Total 2500 / 2500 1500 / 1500
Balance -1750 / -1750 -1080 / -1080
[2025-05-13] MEDS: DELTASONE 15 MG PO (18:12)
[2025-05-13] MEDS: CRESTOR 40 MG PO (21:00)
[2025-05-13] MEDS: LEXAPRO 20 MG PO (21:01)
[2025-05-13] MEDS: NORVASC 5 MG PO (21:01)
[2025-05-13] MEDS: DIOVAN 320 MG PO (21:01)
--- NOTE | 2025-05-13 23:54 | PTCARENOTE ---
Pt AAOx3, pt appears to be more drowsy and withdrawn tonight compared to the night prior. Pt also states he feels 'restless'. Pt having pain in the middle of his back requesting PRN Oxycodone see JAN. Pt had some dizziness while ambulating back to
bed from the chair. Pt NSR on the monitor w/ a prolonged QT. Bob draining yellow urine, bob to be removed in AM. Pt Janee bedside at change of shift. Call vaughn within reach.
[2025-05-14] VITALS (8 sets, daily range): BP systolic 138–165; BP diastolic 79–98; PULSE 64; BMI 28.7
[2025-05-14 05:18] LABS: % Basophils 0.6 % (0-2); % Eosinophils 1.3 % (0-6); % Immature Granulocytes 1.4 % (0-0.5); % Lymphocytes 14.2 % (20.5-51.1); % Monocytes 7.5 % (1.7-9.3); Absolute Basophils 0.1 10^3/uL (0-0.2); Absolute Eosinophils 0.1 10^3/uL (0-0.7); Absolute Immature Granulocytes 0.1 10^3/uL (0-0.05); Absolute Lymphocytes 1.3 10^3/uL (1.2-3.4); Absolute Monocytes 0.7 10^3/uL (0.1-0.6); Absolute Neutrophils 6.8 10^3/uL (1.4-6.5); Hematocrit 47.2 % (39.0-52.0); Hemoglobin 16.2 g/dL (13.0-18.0); Mean Corp Hgb Conc. 34.3 g/dL (33.0-37.0); Mean Corpuscular Hgb 29.7 pg (27.0-31.0); Mean Corpuscular Volume 86.4 fL (80.0-94.0); Mean Platelet Volume 10.5 fL (7.4-10.4); Nucleated Red Blood Cells % 0 % (-); Platelet Count 82 10^3/uL (130-400); Red Blood Cell Count 5.46 10^6/uL (4.70-6.10); Red Cell Dist. Width 14.1 % (11.5-14.5)
[2025-05-14 05:50] LABS: Blood Urea Nitrogen 24 mg/dl (9-20); Calcium 9.3 mg/dl (8.4-10.2); Carbon Dioxide 28 mmol/L (22-30); Chloride 106 mmol/L (98-107); Estimated Creatinine Clearance 90 ml/min; Glucose 127 mg/dl (70-99); Potassium 4.7 mmol/L (3.5-5.1); Sodium 136 mmol/L (135-145); eGFR > 60.00
[2025-05-14] MEDS: TIKOSYN 500 MCG PO (09:23)
[2025-05-14] MEDS: PROSCAR 5 MG PO (09:26)
[2025-05-14] MEDS: ELIQUIS 5 MG PO (09:26)
[2025-05-14] MEDS: PROTONIX 20 MG PO (09:26)
[2025-05-14] MEDS: FLOMAX 0.4 MG PO (09:26)
--- NOTE | 2025-05-14 11:21 | PTCARENOTE ---
Rec'd PT This am. Pt is intermittently confused, talking about feeling like he is in a 'loop again and can't make is stop'. RN and Student RN walked pt to bathroom with walker, he has unsteady gait and needed prompting to keep his eyes open while
walking. Weiss removed at 0600, no void, bladder scan 230ml. updated Dr. Caban and Sophie the practice managers via TT.
[2025-05-14] MEDS: ATIVAN 1 MG PO (11:27)
--- NOTE | 2025-05-14 12:39 | W.PN.HOSP.TC ---
Addendum entered and electronically signed by Socrates Caban MD 05/14/25 13:33:
Patient is unable to void. Will administer Bob again. Discussed with earlier and they will go home with Bob catheter with urology follow-up outpatient. Patient instructed to continue compliance with finasteride and tamsulosin. Will also
provide as needed Ativan for few days. Patient to follow-up with PCP closely outpatient. Discharge today
Time of discharge 38 minutes
Original Note:
Today's Communication/Plan
-
Monitor vital sign
see plan
Monitor mental status
PT
Voiding trial, if fails then will need to go home with Bob. Spouse aware
Assessment / Plan
Assessment / Plan
General: Other (80y M in no acute distres at present. Awake and alert and appears at usual baseline.)
HEENT: Moist mucous membranes and PERRLA
Respiratory: Clear; No Wheezes, Rales or Rhonchi
Cardiac: S1/S2, Regular Rhythm and Murmur (II/ AYESHA)
GI: Soft, Non Distended, Normal Bowel Sounds , non tender
Genito-urinary: no bob
Musculoskeletal: No Edema
Neuro: AO x 3 and Nonfocal/grossly intact
Acute Agitation /TME
- Multiple potential causative/ contributing issues here. This could be secondary to steroids, high-dose opioid dependence, hypertensive emergency or atypical seizure. Suspect likely secondary to TME secondary to urinary retention, steroids
- Patient appears back to baseline following Versed administration, placement of Bob and taking his usual Percocet dose here in the ED.
- Follow for any new / recurrent symptoms.
- CT / CTA head were unremarkable. MRI brain without CVA. Neurology following
Neurology following
responded to ativan
Hypertensive Emergency
- BP initially 204/96. Briefly on Cardene but BP improved dramatically along with agitation.
- Currently BP stable off of Cardene.
- Note that patient missed PM meds (including amlodipine and valsartan) for the past two nights.
Continue with usual meds
- IV hydralazine PRN.
- Adjust regimen as needed for adequate BP control.
ITP
- Platelets today are 69 which is decreased from most recent outpatient value of 114. plts now 82
- Will decrease prednisone slightly to 15mg daily (from 20mg).
- Continue to follow platelet counts.
- Monitor for any bleeding episodes, etc.
Chronic Pain Syndrome
Chronic Opioid Dependence
ADHD
Polypharmacy
- Long-standing / high-dose opioid dependence.
- ? of recent missed / skipped dosing due to or as cause of confusion, etc.
- Continue oxycodone 10mg q4 PRN for now.
- Monitor for any evidence of sedation, withdrawal symptoms / agitation, etc.
- Would hold amphetamines acutely given agitation.
- Continue outpatient efforts at gradual decreased / titration of meds.
ASCVD
Paroxysmal Atrial Fibrillation
Chronic HFpEF
Aortic Stenosis s/p AVR
- Stable. No chest pain, dyspnea, etc.
- Does not appear grossly volume overloaded.
- Hold Lasix acutely.
- Continue CV med regimen including Eliquis for stroke risk reduction.
- Monitor for any evidence of bleeding.
BPH
- Patient with subjective urgency / difficulty passing urine.
- Bob placed in the ED with only 500cc immediate return - but significant improvement in agitation.
- Continue finasteride / tamsulosin. Suspect patient is not compliant to these medications.
- Monitor I/Os.
-Bob DC'd 05/14, unable to void. Will try again later today and if is still unable then will administer Bob again. Spouse aware. Likely will have to go home on Bob
Suspect cognitive impairment
Monitor
DVT Prophylaxis: On Eliquis
Code Status: Full
Anticipated Discharge: Within 24 hours
Subjective/Interval History
-
Date of Service: May 14, 2025
denies pain
Objective Data
-
Labs:
Laboratory Results
05/14/25
04:42
WBC 9.0
Hgb 16.2
Hct 47.2
Plt Count 82 L
Sodium 136
Potassium 4.7
Chloride 106
Carbon Dioxide 28
BUN 24 H
Creatinine 0.6 L
Glucose 127 H
Calcium 9.3
Vital Signs:
Vital Signs
Temp Pulse Resp BP Pulse Ox
97.3 F 61 13 138/98 98
05/14/25 11:21 05/14/25 12:00 05/13/25 08:01 05/14/25 12:00 05/14/25 03:04
I&O
05/13/25 05/14/25 05/15/25
06:59 06:59 06:59
Intake Total 420 / 420 180 / 180
Output Total 1500 / 1500 850 / 850
Balance -1080 / -1080 -670 / -670
--- NOTE | 2025-05-14 13:38 | W.DCSUMMARY ---
Discharge Summary
Discharge Data
Date of Admission: 05/11/25
Date of Discharge: 05/14/25
-
Pending Results: No
Hospital Course
80-year-old male with past medical history of BPH, chronic pain syndrome, chronic opioid dependence, ADHD, ITP, paroxysmal atrial fibrillation, CHF, aortic stenosis status post AVR came to the hospital with acute agitation and toxic metabolic
encephalopathy which was likely thought was secondary to steroids and urinary retention. Patient got Weiss catheter on this hospitalization. We did try voiding trial however patient failed. Patient instructed to follow-up with urology outpatient.
Patient was also seen by physical therapy who recommended rehab however patient and family decided to rather go home with home health. His prednisone was also decreased to 50 mg daily and he was instructed to follow-up with his physician
outpatient for further tapering for ITP. Over time patient symptoms continue to improve, he was then discharged home with instructions to follow-up with all his physicians outpatient.
Discharge Plan
-
Patient Disposition: Home with Home Care
Discharge Diagnosis/Procedures: Acute agitation/toxic metabolic encephalopathy
Acute urinary retention
Hypertensive emergency
History of ITP
Chronic pain syndrome
Chronic opioid dependence
Diet: As tolerated
Activity: As tolerated
Driving Restrictions: Not until seen by your Dr
Bathing Restrictions: None
Activity Restrictions/Additional Instructions:
We have decreased your prednisone to 15 mg daily. Please follow-up with your provider for further prednisone taper
Referrals:
Iris Evans PA-C [Family Provider, Internal Medicine] - in less than 1 week
Vasiliy Gomez MD [Active, Urology] - in one week
Carissa Benton MD [Active, Neurology]
Kosta Wilburn MD [Active, Cardiology]
Prescriptions:
New
lorazepam 1 mg Tablet
0.5 mg PO Q6HPRN PRN (Reason: Agitation) Qty: 10 0RF
prednisone 5 mg Tablet
15 mg PO QPM Qty: 90 0RF
Continued
tamsulosin 0.4 MG capsule
0.4 mg PO DAILY
finasteride 5 MG tablet
5 mg PO DAILY
escitalopram oxalate 20 mg Tablet
20 mg PO HS
rosuvastatin 40 mg Tablet
40 mg PO HS
Eliquis 5 mg Tablet
5 mg PO BID
oxycodone-acetaminophen [Endocet] 10-325 mg tablet
1 tab PO Q6HPRN PRN (Reason: severe pain)
Patient Comments:
05/11/2025, last filled on 04/19/2025 for 240 tablets for 30-day supply per PDMP.
furosemide 20 mg Tablet
20 mg PO DAILY Qty: 30 3RF
amlodipine 5 mg Tablet
5 mg PO HS
pantoprazole 20 mg Tablet,Delayed Release (Dr/Ec)
20 mg PO DAILY
dextroamphetamine-amphetamine 30 mg Tablet
30 mg PO BID
Patient Comments:
05/11/2025, last filled on 04/27/2025 for 60 tablets for 30-day supply per PDMP.
valsartan 320 mg Tablet
320 mg PO HS
dofetilide 500 mcg capsule
500 mcg PO BID
Discontinued
prednisone 20 mg Tablet
20 mg PO QPM
Discharge Orders:
Discharge Patient (As Directed); Ordered 05/14/25
Ordered By: Socrates Caban
Discharge Date and Time
Discharge Date/Time: 05/14/25 18:00
Print Language: KINYARWANDA
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
--- NOTE | 2025-05-14 15:57 | CM ---
Patient with Dx Acute Agitation / TME, Hypertensive Emergency, ITP, Chronic Pain Syndrome. Room air. Receiving Roxicodone prn.
Messages with nurse Nell and Dr Lorenzo; patient had episode of confusion today, and has unsteady gait.
PT/OT worked with patient today and recommended SNF due to his abnormal gait pattern.
Met with patient and Janee; both agree to d/c home today. Discussed with patient/ that 24 hr supervision is recommended due to fall risk and intermittent confusion, and they agreed. says she feels the confusion started about 2 weeks
ago. admits patient fell about 2 weeks ago at the drug store. has been staying at her brother's house at night due to towel sewer leak necessitating house renovation - currently there is no furniture in master bedroom. Patient has been
sleeping in guest bedroom. has been working from home during the day. prefers patient go home and she could stay there with him at night and sleep on the couch. She thinks he will not agree to go to her brother's 2 story house, and the
flight of stairs up to the bedroom there would be an issue for the patient's safe mobility. Both agree to [facility] for SN/PT/OT and made aware that they have SW if long lines operator planning is needed. They cannot put a caregiver in place right now due
to house renovation in progress. IMM completed.
Florence from [facility] notified of d/c details.
Plan home today with [facility], with .
--- NOTE | 2025-05-14 16:00 | PTCARENOTE ---
Reviewed d.c. instructions with pt and . pt and demonstrated understanding of caring for bob catheter. agree to call Urology and PCP for follow up in less than one week per instructions. Reviewed all meds carefully. reminded again
that pt requires supervision and assistance with ambulating and ADLs.
[2025-05-17 14:20] LABS: Vitamin B1, Whole Blood 189 nmol/L (70-180)
== END 2025-05-14 18:00 | disposition home health service (06) | DRG 304 ==
LOC: IMU 22:27
PROVIDERS: Emergency Medicine; Physician Assistant Medical; ADMITTING PHYSICIAN Hospitalist; ATTENDING PHYSICIAN Internal Medicine; CONSULT PHYSICIAN Psychiatry & Neurology Neurology; EMERGENCY PHYSICIAN Student in an Organized Health Care Education/Training Program; FAMILY PHYSICIAN Physician Assistant; REFERRING PHYSICIAN Internal Medicine Cardiovascular Disease
DX: I16.1 Hypertensive emergency (principal); G92.8 Other toxic encephalopathy; F11.20 Opioid dependence, uncomplicated; I50.32 Chronic diastolic (congestive) heart failure; Z86.2 Personal history of diseases of the blood and blood-forming organs and certain disorders involving the immune mechanism; G89.4 Chronic pain syndrome; N40.1 Benign prostatic hyperplasia with lower urinary tract symptoms; R33.8 Other retention of urine; I48.0 Paroxysmal atrial fibrillation; F90.9 Attention-deficit hyperactivity disorder, unspecified type; Z95.2 Presence of prosthetic heart valve; I11.0 Hypertensive heart disease with heart failure; G89.29 Other chronic pain; I25.10 Atherosclerotic heart disease of native coronary artery without angina pectoris; R45.1 Restlessness and agitation; G47.33 Obstructive sleep apnea (adult) (pediatric); Z95.1 Presence of aortocoronary bypass graft; Z95.5 Presence of coronary angioplasty implant and graft; Z79.01 Long term (current) use of anticoagulants; Z79.899 Other long term (current) drug therapy; Z87.891 Personal history of nicotine dependence; G62.9 Polyneuropathy, unspecified; F41.1 Generalized anxiety disorder; E78.00 Pure hypercholesterolemia, unspecified; F32.9 Major depressive disorder, single episode, unspecified; K21.9 Gastro-esophageal reflux disease without esophagitis; M13.0 Polyarthritis, unspecified; Z98.1 Arthrodesis status
CPT/HCPCS: 70450; 70496; 70498; 70544; 70551; 80048; 80053; 81003; 81015; 82607; 82962; 83036; 83605; 84155; 84165; 84425; 84439; 84443; 85025; 85027; 85610; 85652; 85730; 86140; 86618; 86850; 86900; 86901; 87015; 87040; 87207; 93005; 96374; 97116; 97162; 97530; 99291; Q9967

== ENCOUNTER → 2025-05-19 11:28 | Outpatient (REF) | payer MEDICARE, OTHER, SELFPAY ==
[2025-05-19 16:27] LABS: % Basophils 0.6 % (0-2); % Eosinophils 2.4 % (0-6); % Immature Granulocytes 1.5 % (0-0.5); % Lymphocytes 21.8 % (20.5-51.1); % Monocytes 12.7 % (1.7-9.3); Absolute Basophils 0.1 10^3/uL (0-0.2); Absolute Eosinophils 0.3 10^3/uL (0-0.7); Absolute Immature Granulocytes 0.2 10^3/uL (0-0.05); Absolute Lymphocytes 2.4 10^3/uL (1.2-3.4); Absolute Monocytes 1.4 10^3/uL (0.1-0.6); Absolute Neutrophils 6.7 10^3/uL (1.4-6.5); Hematocrit 41.7 % (39.0-52.0); Hemoglobin 14.1 g/dL (13.0-18.0); Mean Corp Hgb Conc. 33.8 g/dL (33.0-37.0); Mean Corpuscular Hgb 29.5 pg (27.0-31.0); Mean Corpuscular Volume 87.2 fL (80.0-94.0); Mean Platelet Volume 11.4 fL (7.4-10.4); Nucleated Red Blood Cells % 0 % (-); Platelet Count 101 10^3/uL (130-400); Red Blood Cell Count 4.78 10^6/uL (4.70-6.10); Red Cell Dist. Width 13.3 % (11.5-14.5)
[2025-05-19 16:31] LABS: ALT (SGPT) 30 U/L (0-50); AST (SGOT) 30 U/L (17-59); Alkaline Phosphatase 76 U/L (38-126); Blood Urea Nitrogen 32 mg/dl (9-20); Calcium 9.1 mg/dl (8.4-10.2); Carbon Dioxide 30 mmol/L (22-30); Chloride 103 mmol/L (98-107); Glucose 89 mg/dl (70-99); Potassium 4.1 mmol/L (3.5-5.1); Sodium 137 mmol/L (135-145); Total Bilirubin 0.9 mg/dl (0.2-1.3); Total Protein 6.2 g/dl (6.3-8.2); eGFR > 60.00
== END ==
LOC: HWLAB 11:28
PROVIDERS: ATTENDING PHYSICIAN Physician Assistant
DX: Z09 Encounter for follow-up examination after completed treatment for conditions other than malignant neoplasm (principal); D69.3 Immune thrombocytopenic purpura; R33.9 Retention of urine, unspecified; I10 Essential (primary) hypertension
CPT/HCPCS: 36415; 80053; 85025

== ENCOUNTER 2025-05-21 00:25 | Emergency (ER) | payer MEDICARE, OTHER, SELFPAY ==
[2025-05-21] VITALS (11 sets, daily range): BP systolic 123–173; BP diastolic 54–92; BMI 29.1
[2025-05-21 01:01] LABS: Urine Albumin 1+ (Neg - Trace); Urine Bilirubin Negative (Negative); Urine Glucose Negative (Negative); Urine Ketone Negative (Negative); Urine Leukocyte 3+ (Negative); Urine Nitrite Negative (Negative); Urine Occult Blood 4+ (Negative); Urine Urobilinogen Negative (Neg - 1+)
[2025-05-21 01:03] LABS: Urine Character Slightly Cloudy (Clear)
[2025-05-21 01:04] LABS: Urine Color Yellow
[2025-05-21 02:19] LABS: Urine Amorphous Seen; Urine Bacteria Moderate (Negative); Urine Mucus Few; Urine Squamous Cell 16-20 /LPF (Few); Urine White Cell 21-25 /HPF (0-5)
[2025-05-21] MEDS: PERCOCET 5/325 2 TABLET PO (06:30)
[2025-05-21 06:59] LABS: % Basophils 0.6 % (0-2); % Eosinophils 2.7 % (0-6); % Immature Granulocytes 1.3 % (0-0.5); % Lymphocytes 22.9 % (20.5-51.1); % Monocytes 9.7 % (1.7-9.3); % Neutrophils 62.8 % (42.2-75.2); Absolute Basophils 0.1 10^3/uL (0-0.2); Absolute Eosinophils 0.2 10^3/uL (0-0.7); Absolute Immature Granulocytes 0.1 10^3/uL (0-0.05); Absolute Monocytes 0.8 10^3/uL (0.1-0.6); Absolute Neutrophils 5.4 10^3/uL (1.4-6.5); Hematocrit 37.6 % (39.0-52.0); Mean Corp Hgb Conc. 34.6 g/dL (33.0-37.0); Mean Corpuscular Hgb 29.9 pg (27.0-31.0); Mean Corpuscular Volume 86.4 fL (80.0-94.0); Mean Platelet Volume 10.1 fL (7.4-10.4); Nucleated Red Blood Cells % 0 % (-); Platelet Count 79 10^3/uL (130-400); Red Blood Cell Count 4.35 10^6/uL (4.70-6.10); Red Cell Dist. Width 13.2 % (11.5-14.5); White Blood Cell Count 8.7 10^3/uL (4.8-10.8)
[2025-05-21 07:10] LABS: Blood Urea Nitrogen 18 mg/dl (9-20); Calcium 8.4 mg/dl (8.4-10.2); Carbon Dioxide 27 mmol/L (22-30); Chloride 110 mmol/L (98-107); Estimated Creatinine Clearance 97 ml/min; Glucose 122 mg/dl (70-99); Potassium 3.7 mmol/L (3.5-5.1); Sodium 139 mmol/L (135-145); eGFR > 60.00
[2025-05-21] MEDS: NORVASC 5 MG PO (08:33)
[2025-05-21] MEDS: DELTASONE 15 MG PO (08:33)
[2025-05-21] MEDS: TIKOSYN 500 MCG PO (08:33)
[2025-05-21] MEDS: PROTONIX 20 MG PO (08:33)
[2025-05-21] MEDS: LASIX 20 MG PO (08:33)
[2025-05-21] MEDS: ELIQUIS 5 MG PO (09:43)
[2025-05-21] MEDS: ROCEPHIN 1000 MG IV (09:43)
--- NOTE | 2025-05-21 11:12 | ED.GENMED ---
History of Present Illness
General
Chief Complaint: Urinary Symptoms
Source: patient and spouse
Exam Limitations: none
Time Seen by Provider: 05/21/25 06:16
History of Present Illness
History of Present Illness:
Patient brought in because of a altered mental status issue yesterday evening. Seems to have resolved. Family concerned about a UTI. Patient has no acute complaints at this time. Recent admission for toxic metabolic encephalopathy/agitation.
Had an issue with urinary retention his last visit. Was discharged about a week ago. Currently denies chest pain shortness of breath abdominal pain fever headache or other complaints
Past History
Past History
ED Past Medical History: Arrthythmia (Atrial fib), CAD, HTN, Hypercholesterolemia, Psychiatric (Depression, ) and Other (Arthritis, vertigo, Neck and back pain, Numbness arms and legs, PNA, Sleep apnea, Aortic stenosis, Urine retention, Low back
disc problem, )
ED Past Surgical History: Cardiac (7 cardiac stents, Quad Bypass, Valve replacement), Orthopedic (Neck fusion, Left hand/wrist surgery, Left shoulder rotator cuff) and Other (3 groin aneurysm. )
Social History
Tobacco: Non-smoker
Alcohol: None
Drug: None
Personal:
Living: with family
Review of Systems
Review of Systems
All Other Systems: Not applicable
Constitutional: Denies fever
Respiratory: Reports no symptoms
Cardiac: Reports no symptoms
ABD/GI: Reports no symptoms
Neurological: Denies headache, weakness or numbness
Phy Exam
Physical Exam
Physical Exam:
GENERAL: Alert and oriented in no apparent distress
EYE: Orbits normal.
NECK: Supple
CARDIAC: Regular rate and rhythm
LUNGS: Clear breath sounds,normal
ABDOMEN: Soft, without focal tenderness or distention
: Indwelling Weiss. Draining well
NEUROLOGICAL: Alert and oriented , grossly non-focal
SKIN: Warm and dry, no rash or lesion, no discoloration, skin intact.
MUSCULOSKELETAL: No edema,no deformity.Good color
PSYCH: Normal and appropriate interaction.
Course
Orders/Labs/Results
Orders:
Orders
05/21/25 00:54
Urinalysis Reflex To Culture Urgent
Date Specimen was Collected: 05/21/25
Time Specimen was Collected: 00:53
Urine Microscopic Reflex Cult Urgent
Urine Culture Urgent
ALEJANDRA Source: U
Specimen Description:
Date Specimen was Collected: 05/21/25
Time Specimen was Collected: 00:53
05/21/25 06:25
Oxycodone/Acetaminophen [Percocet 5/325] 2 tablet PO NOW STA
05/21/25 06:28
IV Insert/Care/Rem.- Treatment PRN
05/21/25 06:30
CT Abd/pel Without Iv Or Oral Urgent
Comment:
Reason For Exam: uti sxs change in ms
05/21/25 06:40
Basic Metabolic Panel Urgent
Complete Blood Count/With Diff Urgent
05/21/25 07:44
Amlodipine [Norvasc] 5 mg PO NOW STA
Furosemide [Lasix] 20 mg PO NOW STA
Pantoprazole [Protonix] 20 mg PO NOW STA
Prednisone [Deltasone] 15 mg PO NOW STA
05/21/25 08:05
Dofetilide [Tikosyn] 500 mcg PO NOW STA
05/21/25 09:30
CefTRIAXone [Rocephin] 1,000 mg IV NOW STA
05/21/25 09:31
Apixaban [Eliquis] 5 mg PO NOW STA
Abnormal Lab Results
05/21/25 05/21/25
00:54 06:40
RBC 4.35 L 10^6/uL
(4.70-6.10)
Hct 37.6 L %
(39.0-52.0)
Plt Count 79 L D 10^3/uL
(130-400)
Abs Immat Gran (auto) 0.1 H 10^3/uL
(0-0.05)
Absolute Monos (auto) 0.8 H 10^3/uL
(0.1-0.6)
Immature Gran % 1.3 H %
(0-0.5)
Monocytes % 9.7 H %
(1.7-9.3)
Chloride 110 H mmol/L
(98-107)
Creatinine 0.6 L mg/dL
(0.7-1.3)
Glucose 122 H mg/dl
(70-99)
Ur Occult Blood Reflex 4+ A
(Negative)
Leukocyte Esterase Rfl 3+ A
(Negative)
Urine RBC 3-6 A /HPF
(0-2)
Urine WBC (Reflex) 21-25 A /HPF
(0-5)
Urine Bacteria (Reflex) Moderate A
(Negative)
Urine Albumin (Reflex) 1+ A
(Neg - Trace)
05/21/25 06:40
05/21/25 06:40
Vital Signs
Initial and Last Documented VS:
Initial Vital Signs
Temp Pulse Resp BP Pulse Ox
98.4 F 52 16 153/76 96
05/21/25 00:31 05/21/25 00:31 05/21/25 00:31 05/21/25 00:31 05/21/25 00:31
Last Documented Vital Signs
Temp Pulse Resp BP Pulse Ox
97.9 F 51 14 173/80 96
05/21/25 07:07 05/21/25 10:00 05/21/25 07:07 05/21/25 10:00 05/21/25 11:15
MDM/Problems Addressed
Differential Diagnosis Includes:
Patient is remained medically stable and nontoxic. is here. She is in agreement. Will treat for UTI and follow-up
*Radiology
Radiology exam reviewed: radiology read reviewed (Bladder wall thickening.)
*Pulse Oximetry
SaO2: 96
Oxygen Mode of Delivery: Room air
Patient hypoxic: no
*Critical Care Note
Total Time (30-74mins, 75-104mins- exclusive of procedures): Not Applicable
Update Note
Update Note:
Patient's is present and agrees he is at baseline. No acute findings medically. Nothing to support an acute neurologic issue. A recent brain MRI/MRA is all within normal limits. Patient has been pleasant and nontoxic. Will treat for UTI
and follow-up
ED Attending Note
-
Portions of this chart may have been created with voice recognition software.� Occasional wrong word or��sound alike� substitutions may have occurred due to the inherent limitations of voice recognition software.
Discharge Plan
Departure
Patient Disposition: Home (Routine Discharge)
Date of Disposition: 05/21/25
Time of Disposition: 11:14
Patient with high blood pressure during this ER visit?: Yes
Discharge Problem:
Transient change in mental status, Possible UTI, Indwelling Weiss catheter
Instructions: Urinary Tract Infection, Adult (DC), BLOOD PRESSURE
Prescriptions:
New
cefdinir 300 mg capsule
300 mg PO BID 7 Days Qty: 14 0RF
No Action
tamsulosin 0.4 MG capsule
0.4 mg PO DAILY
finasteride 5 MG tablet
5 mg PO DAILY
escitalopram oxalate 20 mg Tablet
20 mg PO HS
rosuvastatin 40 mg Tablet
40 mg PO HS
Eliquis 5 mg Tablet
5 mg PO BID
oxycodone-acetaminophen [Endocet] 10-325 mg tablet
1 tab PO Q6HPRN PRN (Reason: severe pain)
Patient Comments:
05/11/2025, last filled on 04/19/2025 for 240 tablets for 30-day supply per PDMP.
furosemide 20 mg Tablet
20 mg PO DAILY Qty: 30 3RF
amlodipine 5 mg Tablet
5 mg PO HS
pantoprazole 20 mg Tablet,Delayed Release (Dr/Ec)
20 mg PO DAILY
dextroamphetamine-amphetamine 30 mg Tablet
30 mg PO BID
Patient Comments:
05/11/2025, last filled on 04/27/2025 for 60 tablets for 30-day supply per PDMP.
valsartan 320 mg Tablet
320 mg PO HS
dofetilide 500 mcg capsule
500 mcg PO BID
lorazepam 1 mg Tablet
0.5 mg PO Q6HPRN PRN (Reason: Agitation) Qty: 10 0RF
prednisone 5 mg Tablet
15 mg PO QPM Qty: 90 0RF
Referrals:
Iris Evans PA-C [Family Provider, Internal Medicine] - Follow up in 2-3 days
Activity Restrictions/Additional Instructions:
Start the oral antibiotics tomorrow
Return with any concerns including recurrent mental status change fever vomiting unusual headache or any other concerning symptoms
Interventions
Interventions:
*Risk Screen - Suicide Last Done: 05/21/25 00:31
*General Assessment Last Done: 05/21/25 02:10
*Neglect/Abuse Screening Last Done: 05/21/25 02:10
*ED- Fall Risk Assessment Last Done: 05/21/25 02:10
*ED COVID-19 Vaccine History Last Done: 05/21/25 02:10
*Nursing Disposition Last Done: 05/21/25 11:35
ED-Male Genitourinary Assessment Last Done: 05/21/25 02:10
Discharge Date and Time
Discharge Date/Time: 05/21/25 11:35
Print Language: MAORI
== END 2025-05-21 11:35 | disposition home or self-care (01) ==
LOC: EMR 00:25
PROVIDERS: Emergency Medicine; EMERGENCY PHYSICIAN Emergency Medicine; FAMILY PHYSICIAN Physician Assistant
DX: R41.82 Altered mental status, unspecified (principal); I48.91 Unspecified atrial fibrillation; I25.10 Atherosclerotic heart disease of native coronary artery without angina pectoris; I10 Essential (primary) hypertension; E78.00 Pure hypercholesterolemia, unspecified; F32.A Depression, unspecified; M19.90 Unspecified osteoarthritis, unspecified site; G47.30 Sleep apnea, unspecified; I35.0 Nonrheumatic aortic (valve) stenosis; Z79.01 Long term (current) use of anticoagulants; Z95.5 Presence of coronary angioplasty implant and graft; Z95.1 Presence of aortocoronary bypass graft; Z95.2 Presence of prosthetic heart valve; Z87.01 Personal history of pneumonia (recurrent); M43.22 Fusion of spine, cervical region; Z88.8 Allergy status to other drugs, medicaments and biological substances
CPT/HCPCS: 99284; 96374; 74176; 80048; 81003; 81015; 85025; 87086

== ENCOUNTER 2025-05-24 10:35 | Emergency (ER) | payer MEDICARE, OTHER, SELFPAY ==
[2025-05-24 10:37] VITALS: BP 174/76
--- NOTE | 2025-05-24 11:33 | ED.GENMED ---
History of Present Illness
General
Chief Complaint: Male Genito-Urinary Symptoms
Source: patient and spouse
Exam Limitations: none
Time Seen by Provider: 05/24/25 11:03
Nursing documentation reviewed up to this point in time: agreed with
History of Present Illness
History of Present Illness:
80 yo male with h/o afib on Eliquis, Aortic valve replaced 12/2022, CAD, CABG,, so I am self HTN, HLD, BPH, urine retention with chronic Bob catheter, presents with who states he is increasingly confused and leaking around bob catheter. He
is on antibiotic for UTI.
She is frustrated as pt insists on bringing the tube from the bob catheter up and over his waistband as he pulls his pants up and is concerned the back flow of urine will cause infection
Pt has no complaints
Seen here 2 days ago for same, dx w UTI, taking Cefdinir 300 mg BID
05/11-05/14: admission for toxic metabolic encephalopathy/agitation.
05/12 and : MRI/MRA normal
Past History
Past History
ED Past Medical History: Arrthythmia (Atrial fib), CAD, HTN, Hypercholesterolemia, Psychiatric (Depression, ) and Other (Arthritis, vertigo, Neck and back pain, Numbness arms and legs, PNA, Sleep apnea, Aortic stenosis, Urine retention, Low back
disc problem, )
ED Past Surgical History: Cardiac (7 cardiac stents, Quad Bypass, Valve replacement), Orthopedic (Neck fusion, Left hand/wrist surgery, Left shoulder rotator cuff) and Other (3 groin aneurysm. )
Social History
Tobacco: Non-smoker
Alcohol: None
Drug: None
Personal:
Living: with family
Review of Systems
Review of Systems
Allergies reviewed?: Yes
All Other Systems: ROS reviewed and negative except as documented in HPI and ROS
Constitutional: Denies fever
ABD/GI: Denies abdominal pain
: Reports other (leaking bob catheter)
Psychiatric: Reports other (more confused lately, no change from previous visit per )
Phy Exam
Physical Exam
Physical Exam:
GENERAL: No acute distress. A&Ox3.
CONSTITUTIONAL: Afebrile.
EYES: clear, conjunctivae normal
ENMT: moist mucus membranes, Pharynx nl
RESPIRATORY: Regular respirations, nonlabored, lungs clear.
CARDIOVASCULAR: Regular rate and rhythm, no murmurs, no rubs.
GI: Soft, nontender, normal BS
: Bob catheter draining clear aamir urine.
MUSCULOSKELETAL: Moves with ease. Well perfused. No edema
SKIN: Warm, dry, pink
PSYCH: Normal mood and affect. Well kept, interactive and appropriate
NEUROLOGIC: Awake, alert and oriented. Slow to answer but appropriate. No focal neurological deficits
Course
Orders/Labs/Results
Orders:
Orders
05/24/25 11:55
Complete Blood Count/With Diff Urgent
Comprehensive Metabolic Panel Urgent
Urinalysis Reflex To Culture Urgent
Date Specimen was Collected: 05/24/25
Time Specimen was Collected: 11:46
Urine Microscopic Reflex Cult Urgent
Urine Culture Urgent
ALEJANDRA Source: U
Specimen Description:
Date Specimen was Collected: 05/24/25
Time Specimen was Collected: 11:46
Abnormal Lab Results
05/24/25
11:55
WBC 10.9 H 10^3/uL
(4.8-10.8)
Plt Count 93 L 10^3/uL
(130-400)
Abs Immat Gran (auto) 0.1 H 10^3/uL
(0-0.05)
Absolute Neuts (auto) 8.7 H 10^3/uL
(1.4-6.5)
Absolute Lymphs (auto) 1.1 L 10^3/uL
(1.2-3.4)
Absolute Monos (auto) 0.8 H 10^3/uL
(0.1-0.6)
Immature Gran % 1.3 H %
(0-0.5)
Neutrophils % 79.9 H %
(42.2-75.2)
Lymphocytes % 9.9 L %
(20.5-51.1)
Carbon Dioxide 33 H mmol/L
(22-30)
BUN 22 H mg/dl
(9-20)
Glucose 134 H mg/dl
(70-99)
Total Protein 6.0 L g/dl
(6.3-8.2)
Ur Occult Blood Reflex 4+ A
(Negative)
Leukocyte Esterase Rfl 3+ A
(Negative)
Urine RBC >100 A /HPF
(0-2)
Urine WBC (Reflex) 16-20 A /HPF
(0-5)
Urine Bacteria (Reflex) Moderate A
(Negative)
Urine Albumin (Reflex) 1+ A
(Neg - Trace)
05/24/25 11:55
05/24/25 11:55
Vital Signs
Initial and Last Documented VS:
Initial Vital Signs
Temp Pulse Resp BP Pulse Ox
98.1 F 53 16 174/76 95
05/24/25 10:37 05/24/25 10:37 05/24/25 10:37 05/24/25 10:37 05/24/25 10:37
Last Documented Vital Signs
Temp Pulse Resp BP Pulse Ox
98.1 F 53 16 165/74 95
05/24/25 10:37 05/24/25 10:37 05/24/25 10:37 05/24/25 13:00 05/24/25 13:45
MDM/Problems Addressed
Differential Diagnosis Includes:
leaking Bob catheter.
Lack of education regarding Bob care
MDM/Problems Addressed:
80 yo male with h/o afib on Eliquis, Aortic valve replaced 12/2022, CAD, CABG,, so I am self HTN, HLD, BPH, urine retention with chronic Bob catheter, presents with who states he is increasingly confused and leaking around bob catheter. He
is on antibiotic for UTI.
She is frustrated as pt insists on bringing the tube from the bob catheter up and over his waistband as he pulls his pants up and is concerned the back flow of urine will cause infection
Pt has no complaints
Seen here 2 days ago for same, dx w UTI, taking Cefdinir 300 mg BID
05/11-05/14: admission for toxic metabolic encephalopathy/agitation.
05/12 and : MRI/MRA normal
Afebrile, NAD
Bob catheter changed without problem
CBC normal
CMP normal
Patient is on cefdinir for UTI now, urine culture pending
2:45 p.m.
80 yo with Bob catheter supposed to be removed today by VN for trial, VN thought pt had change in MS, so sent here. W/U here neg. Pt is on Cefdinir for UTI.
No acute finding, stable for discharge
Pt given a leg bag which will help him avoid elevating the catheter tube over his waistband.
RN instructed and pt how to change leg bag to larger bag for nighttime
Patient seems appropriate although slow to respond, with recent MRI/MRA and head CT, no further neuro work-up is indicated for his change in mental state
will have VN evaluate again in 2 days, then, as planned for today, she may removed the catheter and pt will go to Urology office later in the day for a bladder scan.
Chronic conditions affecting care: HTN, CAD and Other (BPH w Bob catheter)
*Pulse Oximetry
SaO2: 95
Oxygen Mode of Delivery: Room air
Patient hypoxic: not evaluated
*Critical Care Note
Total Time (30-74mins, 75-104mins- exclusive of procedures): Not Applicable
ED Attending Note
-
Portions of this chart may have been created with voice recognition software.� Occasional wrong word or��sound alike� substitutions may have occurred due to the inherent limitations of voice recognition software.
Discharge Plan
Departure
Patient Disposition: Home (Routine Discharge)
Date of Disposition: 05/24/25
Time of Disposition: 13:50
Patient with high blood pressure during this ER visit?: No
Condition: Good
Discharge Problem:
Bob catheter problem
Instructions: How to Care for Your Bob Catheter, Male
Prescriptions:
No Action
tamsulosin 0.4 MG capsule
0.4 mg PO DAILY
finasteride 5 MG tablet
5 mg PO DAILY
escitalopram oxalate 20 mg Tablet
20 mg PO HS
rosuvastatin 40 mg Tablet
40 mg PO HS
Eliquis 5 mg Tablet
5 mg PO BID
oxycodone-acetaminophen [Endocet] 10-325 mg tablet
1 tab PO Q6HPRN PRN (Reason: severe pain)
Patient Comments:
05/11/2025, last filled on 04/19/2025 for 240 tablets for 30-day supply per PDMP.
furosemide 20 mg Tablet
20 mg PO DAILY Qty: 30 3RF
amlodipine 5 mg Tablet
5 mg PO HS
pantoprazole 20 mg Tablet,Delayed Release (Dr/Ec)
20 mg PO DAILY
dextroamphetamine-amphetamine 30 mg Tablet
30 mg PO BID
Patient Comments:
05/11/2025, last filled on 04/27/2025 for 60 tablets for 30-day supply per PDMP.
valsartan 320 mg Tablet
320 mg PO HS
dofetilide 500 mcg capsule
500 mcg PO BID
lorazepam 1 mg Tablet
0.5 mg PO Q6HPRN PRN (Reason: Agitation) Qty: 10 0RF
prednisone 5 mg Tablet
15 mg PO QPM Qty: 90 0RF
cefdinir 300 mg capsule
300 mg PO BID 7 Days Qty: 14 0RF
Referrals:
Iris Evans PA-C [Family Provider, Internal Medicine]
Stalin Wisdom MD [Active, Urology] - Keep scheduled appt
Activity Restrictions/Additional Instructions:
As we discussed, wear the leg bag during the day and change it to the larger bag at night for sleeping.
Contact Dr. Wisdom's office and ask if when the visiting nurse comes later this week you can resume the plan of removing the Bob catheter then returning to the office later that day for a bladder scan
Interventions
Interventions:
*Risk Screen - Suicide Last Done: 05/24/25 10:40
*Neglect/Abuse Screening Last Done: 05/24/25 10:40
*Nursing Disposition Last Done: 05/24/25 14:10
ED-Male Genitourinary Assessment Last Done: 05/24/25 12:37
Discharge Date and Time
Discharge Date/Time: 05/24/25 14:11
Print Language: SWEDISH
[2025-05-24 11:55] VITALS: BP 164/80
[2025-05-24 11:56] VITALS: BMI 30.3
[2025-05-24 12:00] VITALS: BP 145/77
[2025-05-24 12:27] LABS: Urine Character Clear (Clear)
[2025-05-24 12:28] LABS: ALT (SGPT) 41 U/L (0-50); AST (SGOT) 33 U/L (17-59); Albumin 3.7 g/dl (3.5-5.0); Alkaline Phosphatase 78 U/L (38-126); Blood Urea Nitrogen 22 mg/dl (9-20); Calcium 9.0 mg/dl (8.4-10.2); Carbon Dioxide 33 mmol/L (22-30); Chloride 105 mmol/L (98-107); Estimated Creatinine Clearance 85 ml/min; Glucose 134 mg/dl (70-99); Potassium 3.9 mmol/L (3.5-5.1); Sodium 139 mmol/L (135-145); Total Protein 6.0 g/dl (6.3-8.2); eGFR > 60.00
[2025-05-24 12:30] LABS: Hematocrit 43.0 % (39.0-52.0); Hemoglobin 14.7 g/dL (13.0-18.0); Mean Corp Hgb Conc. 34.2 g/dL (33.0-37.0); Mean Corpuscular Volume 86.3 fL (80.0-94.0); Nucleated Red Blood Cells % 0 % (-); Platelet Count 93 10^3/uL (130-400); Red Cell Dist. Width 13.2 % (11.5-14.5)
[2025-05-24 12:49] LABS: Urine Red Blood Cell >100 /HPF (0-2)
[2025-05-24 12:50] LABS: Urine White Cell 16-20 /HPF (0-5)
[2025-05-24 13:00] VITALS: BP 165/74
== END 2025-05-24 14:11 | disposition home or self-care (01) ==
LOC: EMR 10:35
PROVIDERS: Registered Nurse; EMERGENCY PHYSICIAN Emergency Medicine; FAMILY PHYSICIAN Physician Assistant
DX: T83.038A Leakage of other urinary catheter, initial encounter (principal); Y84.6 Urinary catheterization as the cause of abnormal reaction of the patient, or of later complication, without mention of misadventure at the time of the procedure; R41.0 Disorientation, unspecified; I48.91 Unspecified atrial fibrillation; R20.0 Anesthesia of skin; I10 Essential (primary) hypertension; N40.1 Benign prostatic hyperplasia with lower urinary tract symptoms; R33.9 Retention of urine, unspecified; N39.0 Urinary tract infection, site not specified; I25.10 Atherosclerotic heart disease of native coronary artery without angina pectoris; E78.00 Pure hypercholesterolemia, unspecified; F32.A Depression, unspecified; M19.90 Unspecified osteoarthritis, unspecified site; G47.30 Sleep apnea, unspecified; I35.0 Nonrheumatic aortic (valve) stenosis; Z95.2 Presence of prosthetic heart valve; Z95.1 Presence of aortocoronary bypass graft; Z87.01 Personal history of pneumonia (recurrent); Z79.01 Long term (current) use of anticoagulants; M43.22 Fusion of spine, cervical region; Z88.8 Allergy status to other drugs, medicaments and biological substances
CPT/HCPCS: 99284; 51702; 80053; 81003; 81015; 85025; 87086

== ENCOUNTER 2025-05-27 01:01 | Observation (INO) | payer MEDICARE, OTHER, SELFPAY ==
[2025-05-26 17:07] VITALS: BMI 28.3
[2025-05-26 17:17] VITALS: BP 155/67
[2025-05-26 18:23] VITALS: BP 152/74
[2025-05-26 18:32] LABS: Hematocrit 43.5 % (39.0-52.0); Hemoglobin 15.5 g/dL (13.0-18.0); Mean Corp Hgb Conc. 35.6 g/dL (33.0-37.0); Mean Corpuscular Volume 84.3 fL (80.0-94.0); Nucleated Red Blood Cells % 0 % (-); Platelet Count 109 10^3/uL (130-400); Red Cell Dist. Width 13.0 % (11.5-14.5)
[2025-05-26 18:59] LABS: ALT (SGPT) 55 U/L (0-50); AST (SGOT) 41 U/L (17-59); Albumin 4.4 g/dl (3.5-5.0); Alkaline Phosphatase 79 U/L (38-126); Blood Urea Nitrogen 28 mg/dl (9-20); Calcium 9.6 mg/dl (8.4-10.2); Carbon Dioxide 29 mmol/L (22-30); Chloride 102 mmol/L (98-107); Estimated Creatinine Clearance 75 ml/min; Glucose 127 mg/dl (70-99); Lipase 44 U/L (23-300); Potassium 5.1 mmol/L (3.5-5.1); Sodium 135 mmol/L (135-145); Total Protein 6.7 g/dl (6.3-8.2); eGFR > 60.00
[2025-05-26 19:00] VITALS: BP 145/71
[2025-05-26 19:07] LABS: Urine Character Clear (Clear)
[2025-05-26 19:18] LABS: Urine Red Blood Cell 80-90 /HPF (0-2); Urine Squamous Cell 0-2 /LPF (Few)
--- NOTE | 2025-05-26 19:28 | ED.GENMED ---
History of Present Illness
General
Chief Complaint: Abdominal Pain
Source: patient, spouse and physician
Time Seen by Provider: 05/26/25 18:48
History of Present Illness
History of Present Illness:
80-year-old male with past medical history of atrial fibrillation, aortic stenosis, CAD, hypertension, hyperlipidemia, recently admitted for altered mental status, subsequently sent home and developed a urinary tract infection, back to the emergency
department where he had Bob catheter placed and was seeing his primary care provider in follow-up today where he reportedly had severe abdominal pain and was unable to get off of the exam bed prompting the primary care to contact EMS who brought
the patient to the ER. Since arriving to the emergency department patient states his pain is now fully resolved and he is otherwise asymptomatic. notes that the patient had been having some pain earlier in the day but not as severe as what he
was experiencing at the primary care office. There was no reported nausea vomiting, diarrhea. Patient has been having urinary output within his Bob catheter. He has been taking his usual medications as prescribed.
Past History
Past History
ED Past Medical History: Arrthythmia (Atrial fib), CAD, HTN, Hypercholesterolemia, Psychiatric (Depression, ) and Other (Arthritis, vertigo, Neck and back pain, Numbness arms and legs, PNA, Sleep apnea, Aortic stenosis, Urine retention, Low back
disc problem, )
ED Past Surgical History: Cardiac (7 cardiac stents, Quad Bypass, Valve replacement), Orthopedic (Neck fusion, Left hand/wrist surgery, Left shoulder rotator cuff) and Other (3 groin aneurysm. )
Social History
Tobacco: Non-smoker
Alcohol: None
Drug: None
Personal:
Living: with family
Review of Systems
Review of Systems
All Other Systems: ROS reviewed and negative except as documented in HPI and ROS
Phy Exam
Physical Exam
Physical Exam:
GENERAL: Alert , in no apparent distress, smiling and pleasant
EYE: clear conjunctiva b/l
HEAD: NCAT
ENT: o/p clr, mmm.
CARDIAC: Regular rate and rhythm, systolic murmur right 2nd ICS .
LUNGS: Clear breath sounds bilaterally, no acute respiratory distress, no wheezes/rales/rhonchi
ABDOMEN: Soft, without focal tenderness, no r/g, no cvat
NEUROLOGICAL: Alert and oriented
SKIN: Warm and dry, skin intact.
MUSCULOSKELETAL: No edema, well perfused.
PSYCH: Normal and appropriate interaction.
Scores
Heart Failure Risk
Heart Failure Risk Score: Not Applicable
Heart Score for Chest Pain Patients
STEMI patient?: Not applicable
Withdrawal Assessment of Alcohol
Withdrawal Assessment Completed?: Not applicable
Course
Orders/Labs/Results
Orders:
Orders
05/26/25 18:21
IV Insert/Care/Rem.- Treatment PRN
05/26/25 18:22
Complete Blood Count/With Diff Urgent
Comprehensive Metabolic Panel Urgent
Lipase Urgent
05/26/25 18:53
UA Reflex to Culture [Urinalysis Reflex To Culture] Urgent
Date Specimen was Collected: 05/26/25
Time Specimen was Collected: 18:51
Urine Microscopic Reflex Cult Urgent
Urine Culture Urgent
ALEJANDRA Source: U
Specimen Description:
Date Specimen was Collected: 05/26/25
Time Specimen was Collected: 18:51
05/26/25 19:22
CT Abd/pelvis W Iv Cont Urgent
Comment:
Reason For Exam: generalized abd pain
05/26/25 19:29
Oxycodone [Roxicodone] 10 mg PO NOW STA
05/26/25 19:34
Electrocardiogram (*1) Urgent
Reason for Study: Abdominal Pain
EKG- Treatment ONCE
05/26/25 19:38
Troponin I Urgent
05/26/25 22:29
Troponin I Urgent
05/26/25 23:10
EKG [Electrocardiogram (*1)] Urgent
Reason for Study: Other
Other Reason for Exam: elevated troponin
Electrocardiogram (*1) Urgent
Reason for Study: Abdominal Pain
EKG- Treatment ONCE
05/26/25 23:11
EKG- Treatment ONCE
Abnormal Lab Results
05/26/25 05/26/25 05/26/25
18:22 18:53 22:29
WBC 11.5 H 10^3/uL
(4.8-10.8)
Plt Count 109 L 10^3/uL
(130-400)
Abs Immat Gran (auto) 0.1 H 10^3/uL
(0-0.05)
Absolute Neuts (auto) 9.1 H 10^3/uL
(1.4-6.5)
Absolute Monos (auto) 0.7 H 10^3/uL
(0.1-0.6)
Immature Gran % 1.0 H %
(0-0.5)
Neutrophils % 79.6 H %
(42.2-75.2)
Lymphocytes % 12.2 L %
(20.5-51.1)
BUN 28 H mg/dl
(9-20)
Glucose 127 H mg/dl
(70-99)
Total Bilirubin 1.4 H mg/dl
(0.2-1.3)
ALT 55 H U/L
(0-50)
Troponin I 0.043 H* D ng/ml
Ur Occult Blood Reflex 4+ A
(Negative)
Leukocyte Esterase Rfl 2+ A
(Negative)
Urine RBC 80-90 A /HPF
(0-2)
Urine Bacteria (Reflex) Many A
(Negative)
Urine Albumin (Reflex) 1+ A
(Neg - Trace)
05/26/25 18:22
05/26/25 18:22
Vital Signs
Initial and Last Documented VS:
Initial Vital Signs
Temp Pulse Resp BP Pulse Ox
98.4 F 51 18 155/67 99
05/26/25 17:17 05/26/25 17:17 05/26/25 17:17 05/26/25 17:17 05/26/25 17:17
Last Documented Vital Signs
Temp Pulse Resp BP Pulse Ox
97.8 F 50 18 175/88 95
05/26/25 22:52 05/26/25 22:52 05/26/25 22:52 05/26/25 23:02 05/26/25 23:02
MDM/Problems Addressed
Differential Diagnosis Includes:
- Appendicitis
- Diverticulitis
- Colitis
- Pancreatitis
- Biliary Colic
- Renal/Ureteral colic
- Constipation
- Urinary retention/bob malfunction
- UTI
- Bladder spasm
MDM/Problems Addressed:
80-year-old male presenting to the emergency department for evaluation of severe abdominal pain that began earlier in the day, was reportedly so severe he was unable to get off the exam table at his primary care office. Arrives to the ER pain-free.
He is hemodynamically stable here and in no acute distress. Abdominal exam is reassuring. Labs were initiated on arrival which does show a mild leukocytosis of 11,000, chemistry does show a slightly elevated bilirubin and ALT, urine is most
consistent with an indwelling Bob catheter, WBCs only 3-5 making an acute infection much less likely. Given his age and chronic medical conditions will obtain a CT scan of the abdomen and pelvis. Disposition pending.
Chronic conditions affecting care: CAD
*Radiology
Radiology exam reviewed: radiology read reviewed
*Pulse Oximetry
SaO2: 94
Oxygen Mode of Delivery: Room air
Patient hypoxic: no
*Prevention Specialist Interpretation
Rate: normal
Heart Rate: 85
Rhythm: sinus
*Critical Care Note
Total Time (30-74mins, 75-104mins- exclusive of procedures): Not Applicable
Data Reviewed
Review of Other/Old Records Reveals: Labs, Records and Discharge Summary
Patient Management
Discussion with other providers: Hospitalist
Escalation/DeEscalation of care consider admission/obs:
CT scan without any acute findings. Patient's repeat troponin did slightly increase and is now positive, given the pain, age with chronic medical conditions we will plan to admit for continued troponin trending. Patient has remained chest
pain-free/abdominal pain-free. Spoke to via telephone and updated her on treatment plan. Hospitalist team was also notified and accepts for continued evaluation and treatment.
ED Attending Note
-
Portions of this chart may have been created with voice recognition software.� Occasional wrong word or��sound alike� substitutions may have occurred due to the inherent limitations of voice recognition software.
Discharge Plan
Departure
Patient Disposition: Admit
Date of Disposition: 05/26/25
Time of Disposition: 23:12
Presentation/result/management discussed w/ accepting MD/DO: Hospitalist
Discharge Problem:
Abdominal pain, Elevated troponin
Prescriptions:
No Action
tamsulosin 0.4 MG capsule
0.4 mg PO HS
finasteride 5 MG tablet
5 mg PO HS
escitalopram oxalate 20 mg Tablet
20 mg PO HS
rosuvastatin 40 mg Tablet
40 mg PO HS
Eliquis 5 mg Tablet
5 mg PO BID
oxycodone-acetaminophen [Endocet] 10-325 mg tablet
1 tab PO Q6HPRN PRN (Reason: severe pain)
Patient Comments:
05/26/2025, filled on 04/19/2025 for 240 tablets for 30-day supply per PDMP.
furosemide 20 mg Tablet
20 mg PO DAILY Qty: 30 3RF
amlodipine 5 mg Tablet
5 mg PO DAILY
pantoprazole 20 mg Tablet,Delayed Release (Dr/Ec)
20 mg PO DAILY
dextroamphetamine-amphetamine 30 mg Tablet
30 mg PO DAILY
Patient Comments:
05/26/2025, filled on 04/27/2025 for 60 tablets for 30-day supply per PDMP.
valsartan 320 mg Tablet
320 mg PO HS
dofetilide 500 mcg capsule
500 mcg PO BID
lorazepam 1 mg Tablet
0.5 mg PO Q6HPRN PRN (Reason: Agitation) Qty: 10 0RF
Patient Comments:
05/26/2025, filled on 05/14/2025 for 10 tablets for 5-day supply per PDMP.
cefdinir 300 mg capsule
300 mg PO BID 7 Days Qty: 14 0RF
Patient Comments:
05/26/2025, filled on 05/21/2025 and instructed to take 1 capsule BID for 7 days; last dose is Friday night (05/28/2025) per spouse.
prednisone 5 mg tablet
15 mg PO DAILY
Patient Comments:
05/26/2025, per spouse, dose was decreased to 10 mg and is supposed to be started tomorrow (05/27/2025).
dextroamphetamine-amphetamine 30 mg Tablet
30 mg PO HSPRN PRN (Reason: ADHD)
Patient Comments:
05/26/2025, filled on 04/27/2025 for 60 tablets for 30-day supply per PDMP.
Referrals:
Iris Evans PA-C [Family Provider, Internal Medicine]
Interventions
Interventions:
*Risk Screen - Suicide Last Done: 05/26/25 17:20
*General Assessment Last Done: 05/26/25 18:43
*Neglect/Abuse Screening Last Done: 05/26/25 18:43
*ED- Fall Risk Assessment Last Done: 05/26/25 18:43
*ED COVID-19 Vaccine History Last Done: 05/26/25 18:43
KM-Gmfqol-Uhdbmducbr Assessment Last Done: 05/26/25 18:43
Discharge Date and Time
Print Language: GERMAN
[2025-05-26] MEDS: ROXICODONE 10 MG PO (19:41)
--- NOTE | 2025-05-26 19:46 | PHANOTE ---
Addendum entered by Jg Goldberg 05/26/25 20:07:
05/26/2025, spouse confirmed pt.'s meds.
Original Note:
05/26/2025, pt. does not know what meds. he is taking; called spouse but did not received a response; used pharmacy records, ecw records, PDMP, and pt.'s own home med. list to confirm pt.'s meds.
[2025-05-26 20:09] LABS: Troponin I 0.034 ng/ml
[2025-05-26 22:51] VITALS: BP 171/89
[2025-05-26 22:52] VITALS: BP 171/89
[2025-05-26 23:02] VITALS: BP 175/88
[2025-05-26 23:09] LABS: Troponin I 0.043 ng/ml
[2025-05-27] VITALS: BP 173/86
--- NOTE | 2025-05-27 00:16 | HPS.HSE ---
Family Physician
-
Family Physician: Iris Evans
Chief Complaint
-
Abd Pain
History of Present Illness
Patient is an 80y M with PMH significant for chronic pain / chronic opioid use disorder, polypharmacy, ASCVD and ITP who presents to ED for evaluation of abdominal pain. Patient was admitted to 05/11 - 05/14 for mental status change / agitation
and noted to be in urinary retention. He has had Weiss catheter in place since that time. Was seen in the ED 05/21 secondary to recurrent confusion and started on oral cefdinir for suspected UTI (cultures since negative). He was seen by his PCP
today and noted to have severe abdominal pain while in the office and was unable to get up from the exam table. EMS was called and patient brought to the ED for further evaluation.
Here in the ED, patient denies any further abdominal pain. He states that the earlier pain was 'burning' in nature and was in a band across the upper abdomen.
He denies any fevers / chills, N/V/D, etc. He denies chest pain, SOB, etc.
Troponin was checked twice in the ED and was up-trending and so patient was referred for hospitalization.
Medical History
Past Medical History
Past Medical History: Reports Other
Additional Past Medical History:
Polyarthritis / Chronic Pain Syndrome
Chronic Opioid Dependence
ADHD
Hypertension
ASCVD
SUMIT
Paroxysmal Atrial Fibrillation
Aortic Stenosis
DDD
ITP
Past Surgical History: Reports Other
Additional Past Surgical History:
PTCA with Stents
BioAVR
CABG x 4
AtriClip
Lumbar Laminectomy / Discectomy
Cervical Fusion
Right Femoral Artery Aneurysm Repair (x 3)
Carpal Tunnel Release
Left Shoulder Surgery
Social History
Alcohol: None
Drug: None
Personal:
Living: With Family
Family History
Family History: Not pertinent
Allergies / Home Medications
Allergies reflects when Allergies were last updated in [employer].
Home Medications with original date entered in [facility]
Allergy/Medication List:
Allergies
Allergy/AdvReac Type Severity Reaction Status Date / Time
diazepam (From Valium) Allergy 'I get Verified 05/24/25 10:36
violent'
Home Medications
finasteride 5 mg tablet 5 mg PO HS Urinary issue 09/05/20
tamsulosin 0.4 mg capsule 0.4 mg PO HS Urinary issue 09/05/20
escitalopram oxalate 20 mg tablet 20 mg PO HS Mental health 10/10/22
rosuvastatin 40 mg tablet 40 mg PO HS High cholesterol 10/10/22
apixaban 5 mg tablet (Eliquis) 5 mg PO BID Blood Clot Prevention/Tx 07/06/24
oxycodone-acetaminophen 10 mg-325 mg tablet (Endocet) 1 tab PO Q6HPRN PRN severe pain 07/06/24
furosemide 20 mg tablet 20 mg PO DAILY #30 tabs 09/16/24
amlodipine 5 mg tablet 5 mg PO DAILY 05/11/25
dextroamphetamine-amphetamine 30 mg tablet 30 mg PO DAILY 05/11/25
dofetilide 500 mcg capsule 500 mcg PO BID 05/11/25
pantoprazole 20 mg tablet,delayed release 20 mg PO DAILY 05/11/25
valsartan 320 mg tablet 320 mg PO HS 05/11/25
lorazepam 1 mg tablet 0.5 mg (1/2 x 1 mg) PO Q6HPRN PRN Agitation #10 tabs 05/14/25
cefdinir 300 mg capsule 300 mg PO BID 7 days #14 caps 05/21/25
dextroamphetamine-amphetamine 30 mg tablet 30 mg PO HSPRN PRN ADHD 05/26/25
prednisone 5 mg tablet 15 mg PO DAILY 05/26/25
Review of Systems
-
History Source: Patient
A 12 point ROS was completed and negative except as noted: Yes
Constitutional: Reports Fatigue; Denies Fever or Chills
Respiratory: Denies Cough or Trouble Breathing
Cardiac: Denies Chest Pain or Palpitations
Abdomen/GI: Reports Abdominal Pain; Denies Nausea, Vomiting, Diarrhea, Bloody Stools or Black Stools
: Denies Flank Pain
Musculoskeletal: Denies Joint Pain or Edema
Neurological: Denies Dizzy or Headache
Physical Exam
Vital Signs
Vital Signs
Temp Pulse Resp BP Pulse Ox
97.8 F 50 18 175/88 95
05/26/25 22:52 05/26/25 22:52 05/26/25 22:52 05/26/25 23:02 05/26/25 23:02
Physical Exam
General: Other (80y M in no acute distres at present. Answers all questions but seems slightly confused / sluggish compared to baseline.)
HEENT: Moist mucous membranes and PERRLA
Respiratory: Clear; No Wheezes, Rales or Rhonchi
Cardiac: S1/S2, Regular Rhythm and Murmur (II/ AYESHA)
GI: Soft, Non Distended, Normal Bowel Sounds and Other (Mild lower abdominal tenderness without rebound / guarding.)
Genito-urinary: Other (Weiss in place draining dark / aamir urine into leg bag.)
Musculoskeletal: No Clubbing, No Cyanosis and No Edema
Neuro: AO x 3 and Nonfocal/grossly intact
Laboratory Results
-
05/26/25 18:22
05/26/25 18:22
Laboratory Results
Total Bilirubin 1.4 mg/dl (0.2-1.3) H 05/26/25 18:22
AST 41 U/L (17-59) 05/26/25 18:22
ALT 55 U/L (0-50) H 05/26/25 18:22
Alkaline Phosphatase 79 U/L (38-126) 05/26/25 18:22
Troponin I 0.043 ng/ml H* D 05/26/25 22:29
Lipase 44 U/L (23-300) 05/26/25 18:22
Impression/Plan
-
A/P: Patient is an 80y M with PMH significant for ASCVD, A-Fib, hypertension and chronic pain / chronic opioid dependence who presents to ED for evaluation of abdominal pain.
Abdominal Pain
Abnormal Troponin
- Observe overnight for further evaluation and treatment.
- Unclear etiology of abdominal pain - ? bladder spasm related to Weiss catheter?
- Pain-free at present. CT in the ED with no acute findings.
- Troponin was done (0.034 to 0.043). No chest pain. EKG non-specific.
- Follow troponin to peak and monitor for any CV symptoms / complaints.
- Consult Cardiology if troponin continues to rise or patient develops new / worsening symptoms.
Encephalopathy
- Patient appears confused / disoriented compared to prior baseline.
- Multiple ED visits for the same following his recent hospitalization.
- Work-up at that time reviewed. Symptoms attributed to prednisone (since tapered significantly), urinary retention, etc.
- ? more chronic component of long-standing substance use (amphetamines, opioids, etc).
- Follow for any acute agitation, delirium, etc.
- May be degree of chronic impairment underlying.
Benign Hypertension
- Stable. Continue usual home regimen with holding parameters.
ITP
- Stable. Platelet counts remain adequate / stable despite steroid taper.
- Continue taper as planned with decrease to 10mg daily dose starting in AM.
- Monitor for any bleeding issues / cell count changes / etc.
Chronic Pain Syndrome
Chronic Opioid Dependence
ADHD
Polypharmacy
- Long-standing / high-dose opioid dependence.
- Continue oxycodone PRN for now.
- Monitor for any evidence of sedation, withdrawal symptoms / agitation, etc.
- Would hold amphetamines acutely.
- Continue outpatient efforts at gradual decreased / titration of meds.
ASCVD
Paroxysmal Atrial Fibrillation
Chronic HFpEF
Aortic Stenosis s/p AVR
- Stable. No chest pain, dyspnea, etc.
- Does not appear grossly volume overloaded.
- Hold Lasix. Follow I/Os, daily weights.
- Continue other CV med regimen including Eliquis for stroke risk reduction.
- Monitor for any evidence of bleeding.
BPH
- Stable. Maintain Weiss catheter.
- Continue med regimen of Proscar / Flomax.
- Hold further abx given culture results.
DVT Prophylaxis: On Eliquis
Code Status: Full
[2025-05-27] MEDS: TYLENOL 650 MG PO (00:45)
[2025-05-27 01:00] VITALS: BP 176/91
[2025-05-27 01:54] VITALS: BP 159/76
[2025-05-27] MEDS: NSS 1000 IV (01:59)
[2025-05-27] MEDS: ROXICODONE 10 MG PO (01:59)
[2025-05-27 02:11] VITALS: BMI 28.3
[2025-05-27 05:32] LABS: Blood Urea Nitrogen 27 mg/dl (9-20); Calcium 9.1 mg/dl (8.4-10.2); Carbon Dioxide 27 mmol/L (22-30); Chloride 104 mmol/L (98-107); Estimated Creatinine Clearance 87 ml/min; Glucose 90 mg/dl (70-99); Potassium 3.9 mmol/L (3.5-5.1); Sodium 134 mmol/L (135-145); eGFR > 60.00
[2025-05-27 05:41] LABS: Hematocrit 42.4 % (39.0-52.0); Hemoglobin 14.8 g/dL (13.0-18.0); Mean Corp Hgb Conc. 34.9 g/dL (33.0-37.0); Mean Corpuscular Volume 85.1 fL (80.0-94.0); Platelet Count 102 10^3/uL (130-400); Red Cell Dist. Width 13.0 % (11.5-14.5)
[2025-05-27 05:44] LABS: Troponin I 0.065 ng/ml
[2025-05-27 07:31] VITALS: BP 159/73
[2025-05-27] MEDS: NORVASC 5 MG PO (07:53)
[2025-05-27] MEDS: PROTONIX 20 MG PO (07:53)
[2025-05-27] MEDS: ELIQUIS 5 MG PO (07:53)
[2025-05-27] MEDS: TIKOSYN 500 MCG PO (07:53)
[2025-05-27] MEDS: DELTASONE 10 MG PO (07:54)
[2025-05-27] MEDS: OMNICEF 300 MG PO (10:50)
[2025-05-27] MEDS: PERCOCET 5/325 2 TABLET PO (10:50)
--- NOTE | 2025-05-27 10:58 | CM ---
Reviewed the chart notes and spoke with the patient at he bedside. The patient is admitted under observational status. The BROOKE letter was provided and explained. The patient had no questions with regards to the letter.
The patient resides with spouse in a one story home with full basement. The patient has two steps to enter. The patient reports on DME is a rolling walker. Patient is current with VN services. The patient confirmed his [facility] choice [facility]. [facility] continues to be available to patient/family and is monitoring medical plan for needs at discharge.
Plan: Discharge back to home with resumption of VN services.
[2025-05-27 11:00] VITALS: BP 159/85
[2025-05-27 11:32] LABS: Troponin I 0.057 ng/ml
--- NOTE | 2025-05-27 12:00 | CON.CAR ---
Consultation
Consultation Request
Date/Time Consultation Requested: 05/27/25
Date/Time Consultation Performed: 05/27/25
Requesting Provider: Dr Jimenez
Performing Provider: Dr López (Dr Wilburn)
Reason for Consultation: abnormal troponin
Medical History
-
Chief Complaint: abdominal pain
History of Present Illness:
80-year-old gentleman with a past medical history of HFpEF, A-fi(persistent managed with Tikosyn/DCCV 08/2024),CAD with multiple PCI most recently status post CABx 4 (FARR�LAD, SVG�sequential to OM�RPDA, left atrial appendage and exclusion with 45
mm atrial clip) in November 2022, hyperlipidemia, aortic stenosis status post bio prosthetic SAVR at the time of CAB, polyarthritis, ITP, disc disease of cervical and lumbar spine, chronic pain with chronic opioid use disorder, and recent admission
on 05/11 - 05/14 for mental status change/agitation noted to be due to urinary retention. Return to the ED 05/21 for confusion and started on empiric antibiotics, sent in by PCP on 05/26/2025 for severe abdominal pain.
This pain has resolved. He reports his memory is faily and he has been 'disoriented at home'. He is without complaints of cp or sob. He has no dizziness or palpitations.
Past Medical History
Past Medical History: Other (As above)
Past Surgical History: Other (As above)
Social History
Tobacco: Former Smoker
Alcohol: None
Allergies / Home Medications
Allergy/AdvReac Type Severity Reaction Status Date / Time
diazepam (From Valium) Allergy 'I get Verified 05/24/25 10:36
violent'
�Medication �Instructions �Recorded �Confirmed �Type
finasteride 5 mg tablet 5 mg PO HS Urinary issue 09/05/20 05/26/25 History
tamsulosin 0.4 mg capsule 0.4 mg PO HS Urinary issue 09/05/20 05/26/25 History
escitalopram oxalate 20 mg tablet 20 mg PO HS Mental health 10/10/22 05/26/25 History
rosuvastatin 40 mg tablet 40 mg PO HS High cholesterol 10/10/22 05/26/25 History
apixaban 5 mg tablet (Eliquis) 5 mg PO BID Blood Clot 07/06/24 05/26/25 History
Prevention/Tx
oxycodone-acetaminophen 10 mg-325 1 tab PO Q6HPRN PRN severe pain 07/06/24 05/26/25 History
mg tablet (Endocet)
furosemide 20 mg tablet 20 mg PO DAILY #30 tabs 09/16/24 05/26/25 Rx
amlodipine 5 mg tablet 5 mg PO DAILY 05/11/25 05/26/25 History
dextroamphetamine-amphetamine 30 30 mg PO DAILY 05/11/25 05/26/25 History
mg tablet
dofetilide 500 mcg capsule 500 mcg PO BID 05/11/25 05/26/25 History
pantoprazole 20 mg tablet,delayed 20 mg PO DAILY 05/11/25 05/26/25 History
release
valsartan 320 mg tablet 320 mg PO HS 05/11/25 05/26/25 History
lorazepam 1 mg tablet 0.5 mg (1/2 x 1 mg) PO Q6HPRN PRN 05/14/25 05/26/25 Rx
Agitation #10 tabs
cefdinir 300 mg capsule 300 mg PO BID 7 days #14 caps 05/21/25 05/26/25 Rx
dextroamphetamine-amphetamine 30 30 mg PO HSPRN PRN ADHD 05/26/25 05/26/25 History
mg tablet
prednisone 5 mg tablet 15 mg PO DAILY 05/26/25 05/26/25 History
Review of Systems
-
All other systems: Negative unless noted
Physical Exam
Vital Signs
Temp Pulse Resp BP Pulse Ox
98.3 F 49 16 159/85 97
05/27/25 11:00 05/27/25 11:00 05/27/25 11:00 05/27/25 11:00 05/27/25 11:00
Lab Results
05/27/25 04:58
05/27/25 04:58
Troponin I 0.057 ng/ml H* 05/27/25 10:39
Physical Exam
General: Well Developed and Well Nourished
Respiratory: Clear; Negative Wheezes, Crackles or Rhonchi
Cardiac: S1/S2; Negative Murmur, Rub or Peripheral Edema
GI: Soft and Non Tender
Neuro: AO x 3
Impression / Plan
-
Nonischemic myocardial injury secondary to hypertension on arrival: Patient with extensive coronary artery disease. Not surprised there is a slight troponin leak. This has been seen in the past. He offers no symptoms of chest pain or shortness of
breath.
No further testing planned.
Can be evaluated by Dr. Wilburn in the future if symptoms change.
Persistent atrial fibrillation now managed with Tikosyn after cardioversion: Remains in sinus rhythm. QTc is stable. Continue dofetilide without missing any doses. Continue Eliquis.
CAD status post, chronic, stable. Continue statin, ARB, and amlodipine.
Unclear etiology of his abdominal pain but this is resolved without any intervention.
I wonder if his memory is declining and he is sundowning? Further evaluation per medicine and primary care physician.
-
From a cardiovascular perspective no contraindication to discharge home.
Findings discussed with Dr. Jimenez.
I will see again at your request.
Data Reviewed
-
EKG: Tracing Personally Visualized and interpreted (EKG sinus bradycardia with P ACs with a Jensen conduction, diffuse nonspecific T wave abnormality, QTc 464 ms, compared to prior T wave inversion no longer seen inferiorly, otherwise findings
stable.)
Radiology: Report Reviewed by me (CT abdomen pelvis with IV contrast 05/26/2025 no evidence of acute abdominal or pelvic process.)
Medical Tests (Nuc Med, Echo etc): Report Reviewed by me (TTE 04/01/2025 normal biventricular size systolic function, #25 Baltazar Inspiris bioprosthetic aortic valve (mean gradient 8 mmHg). No AI. No change from 2023.)
--- NOTE | 2025-05-27 14:42 | W.PN.UPDATE ---
Update Note
Progress Note Update
Patient seen and examined. No recurrence of abdominal pain. His belly is soft on exam. His CT of the abdomen and pelvis is negative.
Patient denies chest pain, denies shortness of breath. Seen by cardiology for elevated troponin.
Cardiology has cleared him for discharge, and recommends outpatient follow-up in the office.
Updated on phone 05/27, will discharge patient today.
[2025-05-27 15:00] VITALS: BP 123/75
[2025-05-27 15:08] LABS: Troponin I 0.062 ng/ml
--- NOTE | 2025-05-27 15:48 | W.DCSUMMARY ---
Discharge Summary
Discharge Data
Date of Admission: 05/27/25
Date of Discharge: 05/27/25
-
Pending Results: No
Hospital Course
Discharge diagnosis:
Transient upper abdominal pain of unclear etiology
Nonischemic myocardial injury troponin elevation
Resolving urinary tract infection
Benign prostatic hypertrophy with urinary retention requiring Weiss
Persistent atrial fibrillation on Eliquis
Chronic pain syndrome with chronic opioid dependency
Idiopathic thrombocytopenic purpura, with steroid taper
Consults: Cardiology
CT abdomen and pelvis:
Scattered small hepatic cysts and too small to accurately characterize liver lesions. The gallbladder, bile ducts, pancreas, spleen, bilateral adrenal glands, and kidneys are unremarkable other than a duplicated left renal collecting system. No
hydronephrosis.
The abdominal aorta is normal in caliber. Severe aortobiiliac calcified atherosclerosis.
No abdominal or retroperitoneal lymphadenopathy.
No bowel wall thickening, obstruction, or inflammation. Moderate colonic stool burden. No extraluminal free air, fluid collection, or ascites.
PELVIS: Decompressed urinary bladder with a Weiss catheter in place. Tiny focus of gas in the anterior bladder. The prostate gland appears to protrude into the base of the urinary bladder. Small fat-containing left inguinal hernia. Minor fluid
attenuation in the right inguinal canal.
SKELETON: Chronic degenerative changes of the spine, bilateral sacroiliac joints, hips, and symphysis pubis.
IMPRESSION:
No CT evidence for an acute process in the abdomen or pelvis. Chronic findings, as detailed above.
Hospital course:
80-year-old male with a past medical history of BPH, atrial fibrillation on Eliquis, ITP, and chronic pain syndrome with chronic opioid dependency who was admitted for abdominal pain. Patient had upper abdominal pain that was transient. A CT of
the abdomen and pelvis was negative. He did not have any recurrence of his abdominal pain. He tolerated a diet.
Patient was seen in conjunction with cardiology for an elevated troponin. Cardiology suspects nonischemic myocardial injury troponin elevation secondary to hypertension upon arrival. Patient did not have any shortness of breath or chest pain. He
is medically stable and cleared by cardiology for discharge. He needs to follow-up with his primary care provider in 1 week, as well as his usual administrator pesticide in 2-3 weeks.
Disposition: Home with home care
Discharge planning: Required 39 minutes
Discharge Plan
-
Patient Disposition: Home (Routine Discharge)
Discharge Diagnosis/Procedures: Transient abdominal pain, elevated troponin, resolving urinary tract infection
Condition: Good
Diet: Low Fat and Low Cholesterol
Activity: As tolerated
Driving Restrictions: As prior to admission
Activity Restrictions/Additional Instructions:
Please continue and finish your antibiotics as prescribed.
Follow the prednisone taper directions as directed by your primary care provider.
Follow-up with your primary care provider in 1 week, and your usual administrator pesticide in the office in 2-3 weeks.
Referrals:
Iris Evans PA-C [Family Provider, Internal Medicine] - in one week
Prescriptions:
Continued
tamsulosin 0.4 MG capsule
0.4 mg PO HS
finasteride 5 MG tablet
5 mg PO HS
escitalopram oxalate 20 mg Tablet
20 mg PO HS
rosuvastatin 40 mg Tablet
40 mg PO HS
Eliquis 5 mg Tablet
5 mg PO BID
oxycodone-acetaminophen [Endocet] 10-325 mg tablet
1 tab PO Q6HPRN PRN (Reason: severe pain)
Patient Comments:
05/26/2025, filled on 04/19/2025 for 240 tablets for 30-day supply per PDM.
furosemide 20 mg Tablet
20 mg PO DAILY Qty: 30 3RF
amlodipine 5 mg Tablet
5 mg PO DAILY
pantoprazole 20 mg Tablet,Delayed Release (Dr/Ec)
20 mg PO DAILY
dextroamphetamine-amphetamine 30 mg Tablet
30 mg PO DAILY
Patient Comments:
05/26/2025, filled on 04/27/2025 for 60 tablets for 30-day supply per PDMP.
valsartan 320 mg Tablet
320 mg PO HS
dofetilide 500 mcg capsule
500 mcg PO BID
lorazepam 1 mg Tablet
0.5 mg PO Q6HPRN PRN (Reason: Agitation) Qty: 10 0RF
Patient Comments:
05/26/2025, filled on 05/14/2025 for 10 tablets for 5-day supply per PDMP.
cefdinir 300 mg capsule
300 mg PO BID 7 Days Qty: 14 0RF
Patient Comments:
05/26/2025, filled on 05/21/2025 and instructed to take 1 capsule BID for 7 days; last dose is Friday night (05/28/2025) per spouse.
dextroamphetamine-amphetamine 30 mg Tablet
30 mg PO HSPRN PRN (Reason: ADHD)
Patient Comments:
05/26/2025, filled on 04/27/2025 for 60 tablets for 30-day supply per PDMP.
Changed
prednisone 5 mg tablet
10 mg PO DAILY Qty: 0 0RF
Patient Comments:
05/26/2025, per spouse, dose was decreased to 10 mg and is supposed to be started tomorrow (05/27/2025).
Discharge Orders:
Discharge Patient (As Directed); Ordered 05/27/25
Ordered By: Hugo Jimenez
Discharge Date and Time
Discharge Date/Time: 05/27/25 17:05
Print Language: MONEGASQUE
== END 2025-05-27 17:05 | disposition home or self-care (01) ==
LOC: 2 SOUTH 01:01
PROVIDERS: Physician Assistant Medical; ADMITTING PHYSICIAN Hospitalist; ATTENDING PHYSICIAN Family Medicine; CONSULT PHYSICIAN Internal Medicine Cardiovascular Disease; EMERGENCY PHYSICIAN Emergency Medicine; FAMILY PHYSICIAN Physician Assistant
DX: R10.10 Upper abdominal pain, unspecified (principal); I5A Non-ischemic myocardial injury (non-traumatic); I11.0 Hypertensive heart disease with heart failure; N39.0 Urinary tract infection, site not specified; G93.49 Other encephalopathy; E78.00 Pure hypercholesterolemia, unspecified; F32.A Depression, unspecified; G89.4 Chronic pain syndrome; F11.20 Opioid dependence, uncomplicated; F90.9 Attention-deficit hyperactivity disorder, unspecified type; I25.10 Atherosclerotic heart disease of native coronary artery without angina pectoris; G47.33 Obstructive sleep apnea (adult) (pediatric); I48.19 Other persistent atrial fibrillation; D69.3 Immune thrombocytopenic purpura; I50.32 Chronic diastolic (congestive) heart failure; N40.1 Benign prostatic hyperplasia with lower urinary tract symptoms; R33.8 Other retention of urine; I35.0 Nonrheumatic aortic (valve) stenosis; Z79.01 Long term (current) use of anticoagulants; Z79.52 Long term (current) use of systemic steroids; Z79.899 Other long term (current) drug therapy; Z95.1 Presence of aortocoronary bypass graft; Z95.3 Presence of xenogenic heart valve; Z95.5 Presence of coronary angioplasty implant and graft; Z98.1 Arthrodesis status; Z87.440 Personal history of urinary (tract) infections; Z87.891 Personal history of nicotine dependence
CPT/HCPCS: 74177; 80048; 80053; 81003; 81015; 83690; 84484; 85025; 85027; 87086; 93005; 99285; G0378; Q9967

== ENCOUNTER 2025-05-28 23:38 | Emergency (ER) | payer MEDICARE, OTHER, SELFPAY ==
[2025-05-28 23:42] VITALS: BP 142/62
[2025-05-29 01:55] VITALS: BP 155/78
[2025-05-29 02:00] VITALS: BP 160/73
[2025-05-29 02:23] VITALS: BMI 27.8
[2025-05-29 03:00] VITALS: BP 144/80
--- NOTE | 2025-05-29 03:28 | ED.GENMED ---
History of Present Illness
<Philip Hollis MD, Resident - Last Filed: 05/29/25 05:48>
General
Chief Complaint: Male Genito-Urinary Symptoms
Source: patient
Exam Limitations: none
Time Seen by Provider: 05/29/25 03:15
Nursing documentation reviewed up to this point in time: agreed with
History of Present Illness
History of Present Illness:
This is a 80-year-old male with known history of A-fib on Eliquis, aortic valve replaced 12/2022, CAD, CABG, hypertension, hyperlipidemia, BPH, urinary retention on chronic Weiss presented in the emergency department due to blood in the urine. He
also felt like as if his Weiss is obstructed. called 911 as she had the concern that he might still has a UTI
He was seen for urinary symptoms multiple time over the past few weeks. He was also put on antibiotics for UTI with last dose supposed to be on 05/28/2025. His last admission was for abdominal pain and was d/c on 05/27/25. CT abd/pel was negative on
05/26/25. Patient was also seen by cardiology due to elevated troponin which they suspect was nonischemic myocardial injury secondary to hypertension. Patient did not had any other cardiac symptoms. He was cleared by cardiology for discharge.
Past History
<Philip Hollis MD, Resident - Last Filed: 05/29/25 05:48>
Past History
ED Past Medical History: Arrthythmia (Atrial fib), CAD, HTN, Hypercholesterolemia, Psychiatric (Depression, ) and Other (Arthritis, vertigo, Neck and back pain, Numbness arms and legs, PNA, Sleep apnea, Aortic stenosis, Urine retention, Low back
disc problem, )
ED Past Surgical History: Cardiac (7 cardiac stents, Quad Bypass, Valve replacement), Orthopedic (Neck fusion, Left hand/wrist surgery, Left shoulder rotator cuff) and Other (3 groin aneurysm. )
Social History
Tobacco: Non-smoker
Alcohol: None
Drug: None
Personal:
Living: with family
Review of Systems
<Philip Hollis MD, Resident - Last Filed: 05/29/25 05:48>
Review of Systems
Constitutional: Reports no symptoms
EENT: Reports no symptoms
Respiratory: Reports no symptoms
Cardiac: Reports no symptoms
ABD/GI: Reports no symptoms
: Reports dark urine
Musculoskeletal: Reports no symptoms
Skin: Reports no symptoms
Neurological: Reports no symptoms
Endocrine: Reports no symptoms
Hematologic/Lymphatic: Reports no symptoms
Psychiatric: Reports no symptoms
Phy Exam
<Philip Hollis MD, Resident - Last Filed: 05/29/25 05:48>
Physical Exam
Physical Exam:
GENERAL: Alert , in no apparent distress, smiling and pleasant
EYE: clear conjunctiva b/l
HEAD: NCAT
CARDIAC: Regular rate and rhythm.
LUNGS: Clear breath sounds bilaterally, no acute respiratory distress, no wheezes/rales/rhonchi
ABDOMEN: Soft, without focal tenderness, no r/g, no cvat. Urinary catheter in place with dark urine in bag
NEUROLOGICAL: Alert and oriented
SKIN: Warm and dry, skin intact.
MUSCULOSKELETAL: No edema, well perfused.
PSYCH: Normal and appropriate interaction.
Course
<Philip Hollis MD, Resident - Last Filed: 05/29/25 05:48>
Orders/Labs/Results
Orders:
Orders
05/29/25 03:51
CMP [Comprehensive Metabolic Panel] Urgent
Complete Blood Count/With Diff Urgent
05/29/25 04:09
Urinalysis Reflex To Culture Urgent
Date Specimen was Collected: 05/29/25
Time Specimen was Collected: 04:01
Urine Microscopic Reflex Cult Urgent
Urine Culture Urgent
ALEJANDRA Source: U
Specimen Description:
Date Specimen was Collected: 05/29/25
Time Specimen was Collected: 04:01
05/29/25 04:36
LevoFLOXacin [Levaquin] 750 mg PO NOW STA
05/29/25 04:37
Electrocardiogram (*1) Urgent
Reason for Study: QTc Monitoring
EKG- Treatment ONCE
Abnormal Lab Results
05/29/25 05/29/25
03:51 04:09
RBC 4.61 L 10^6/uL
(4.70-6.10)
Plt Count 87 L 10^3/uL
(130-400)
MPV 10.5 H fL
(7.4-10.4)
Abs Immat Gran (auto) 0.1 H 10^3/uL
(0-0.05)
Absolute Monos (auto) 0.9 H 10^3/uL
(0.1-0.6)
Immature Gran % 1.5 H %
(0-0.5)
Monocytes % 10.4 H %
(1.7-9.3)
Chloride 109 H mmol/L
(98-107)
BUN 26 H mg/dl
(9-20)
Creatinine 0.6 L mg/dL
(0.7-1.3)
Calcium 8.1 L mg/dl
(8.4-10.2)
Total Protein 5.3 L D g/dl
(6.3-8.2)
Albumin 3.3 L g/dl
(3.5-5.0)
Urine Ketones 1+ A
(Negative)
Ur Occult Blood Reflex 4+ A
(Negative)
Leukocyte Esterase Rfl 1+ A
(Negative)
Urine RBC >100 A /HPF
(0-2)
Urine Glucose 2+ A
(Negative)
Urine Albumin (Reflex) 3+ A
(Neg - Trace)
05/29/25 03:51
05/29/25 03:51
Vital Signs
Initial and Last Documented VS:
Initial Vital Signs
Temp Resp BP Pulse Ox
36.8 C 16 142/62 97
05/28/25 23:42 05/28/25 23:42 05/28/25 23:42 05/28/25 23:42
Last Documented Vital Signs
Temp Pulse Resp BP Pulse Ox
36.8 C 52 17 177/86 100
05/28/25 23:42 05/29/25 06:30 05/29/25 06:30 05/29/25 05:00 05/29/25 05:15
<Kosta Hendrickson MD - Last Filed: 05/29/25 08:47>
Orders/Labs/Results
Orders:
Orders
05/29/25 03:51
CMP [Comprehensive Metabolic Panel] Urgent
Complete Blood Count/With Diff Urgent
05/29/25 04:09
Urinalysis Reflex To Culture Urgent
Date Specimen was Collected: 05/29/25
Time Specimen was Collected: 04:01
Urine Microscopic Reflex Cult Urgent
Urine Culture Urgent
ALEJANDRA Source: U
Specimen Description:
Date Specimen was Collected: 05/29/25
Time Specimen was Collected: 04:01
05/29/25 04:36
LevoFLOXacin [Levaquin] 750 mg PO NOW STA
05/29/25 04:37
Electrocardiogram (*1) Urgent
Reason for Study: QTc Monitoring
EKG- Treatment ONCE
Abnormal Lab Results
05/29/25 05/29/25
03:51 04:09
RBC 4.61 L 10^6/uL
(4.70-6.10)
Plt Count 87 L 10^3/uL
(130-400)
MPV 10.5 H fL
(7.4-10.4)
Abs Immat Gran (auto) 0.1 H 10^3/uL
(0-0.05)
Absolute Monos (auto) 0.9 H 10^3/uL
(0.1-0.6)
Immature Gran % 1.5 H %
(0-0.5)
Monocytes % 10.4 H %
(1.7-9.3)
Chloride 109 H mmol/L
(98-107)
BUN 26 H mg/dl
(9-20)
Creatinine 0.6 L mg/dL
(0.7-1.3)
Calcium 8.1 L mg/dl
(8.4-10.2)
Total Protein 5.3 L D g/dl
(6.3-8.2)
Albumin 3.3 L g/dl
(3.5-5.0)
Urine Ketones 1+ A
(Negative)
Ur Occult Blood Reflex 4+ A
(Negative)
Leukocyte Esterase Rfl 1+ A
(Negative)
Urine RBC >100 A /HPF
(0-2)
Urine Glucose 2+ A
(Negative)
Urine Albumin (Reflex) 3+ A
(Neg - Trace)
05/29/25 03:51
05/29/25 03:51
Vital Signs
Initial and Last Documented VS:
Initial Vital Signs
Temp Resp BP Pulse Ox
36.8 C 16 142/62 97
05/28/25 23:42 05/28/25 23:42 05/28/25 23:42 05/28/25 23:42
Last Documented Vital Signs
Temp Pulse Resp BP Pulse Ox
36.8 C 52 17 177/86 100
05/28/25 23:42 05/29/25 06:30 05/29/25 06:30 05/29/25 05:00 05/29/25 05:15
<Philip Hollis MD, Resident - Last Filed: 05/29/25 05:48>
MDM/Problems Addressed
Differential Diagnosis Includes:
UTI vs renal stone vs less likely CA vs others
MDM/Problems Addressed:
cbc unremarkable, cmp with cr of 0.6, Urinalysis with urine ketones, urine occult blood, leukocyte esterase positive, urine RBC positive.
Micro pending.
will treat with Levaquin. Check EKG to monitor QTc before starting Levaquin.
Patient sees Dr. Wisdom . Advise follow-up outpatient for further evaluation recommendation. Patient voices understanding. Patient is stable for discharge.
<Philip Hollis MD, Resident - Last Filed: 05/29/25 05:48>
*Pulse Oximetry
SaO2: 97
Oxygen Mode of Delivery: Room air
Patient hypoxic: no
*Critical Care Note
Total Time (30-74mins, 75-104mins- exclusive of procedures): Not Applicable
ED Attending Note
<Philip Hollis MD, Resident - Last Filed: 05/29/25 05:48>
-
Portions of this chart may have been created with voice recognition software.� Occasional wrong word or��sound alike� substitutions may have occurred due to the inherent limitations of voice recognition software.
<Kosta Hendrickson MD - Last Filed: 05/29/25 08:47>
ED Attending Note
Patient seen and examined by attending physician: Yes
I performed a history and physical exam of patient and discussed management with resident, I reviewed resident's note and agree with documented findings and plan of care.: Yes
ED Attending Note:
I have seen and evaluated the patient with a [id number] encounter. I have spoken to the resident and involved in the medical history, the physical exam, medical decision making.
Evaluation and management service: agree unless noted differently below.
Results interpretation: agree unless noted differently below.
Focused HPI: 80-year-old male with past medical history as noted presents to the ER for evaluation of dark urine. Patient was just admitted and had urinary retention and UTI and had a Weiss catheter placed at that time and was discharged with Weiss
catheter. Patient just completed a course of cefdinir. He says over the past 24 hours has had dark cloudy urine and it sounds like he may have been mildly confused, refusing his meds tonight and so he was sent to the ER for evaluation. He denies
any abdominal or flank pain, fever or chills or any other acute complaints.
Physical exam: Patient is awake and alert, oriented here does not appear to be confused. Vital signs are normal. He has a Weiss catheter in place and is draining dark very cloudy urine with sediment. His abdomen is nontender and he has no CVA
tenderness.
Medical Decision Makin-year-old male with recently treated UTI presents with dark cloudy urine and possibly some mild confusion earlier. Vitals and exam as above. His CBC shows no leukocytosis. CMP shows acceptable renal function. His
catheter is having good output but urinalysis concerning for possible infection. Will send urine culture. Treat with Levaquin. At this point no indication for hospitalization with no signs of sepsis. Stable for discharge with PCP follow-up.
Discharge Plan
Departure
Patient Disposition: Home (Routine Discharge)
Date of Disposition: 05/29/25
Time of Disposition: 04:38
Patient with high blood pressure during this ER visit?: Yes
Discharge Problem:
Acute UTI
Instructions: Urinary tract infection in adults - ED discharge instructions
Prescriptions:
New
levofloxacin 750 mg tablet
750 mg PO DAILY 5 Days Qty: 5 0RF
No Action
tamsulosin 0.4 MG capsule
0.4 mg PO HS
finasteride 5 MG tablet
5 mg PO HS
escitalopram oxalate 20 mg Tablet
20 mg PO HS
rosuvastatin 40 mg Tablet
40 mg PO HS
Eliquis 5 mg Tablet
5 mg PO BID
oxycodone-acetaminophen [Endocet] 10-325 mg tablet
1 tab PO Q6HPRN PRN (Reason: severe pain)
Patient Comments:
05/26/2025, filled on 04/19/2025 for 240 tablets for 30-day supply per PDMP.
furosemide 20 mg Tablet
20 mg PO DAILY Qty: 30 3RF
amlodipine 5 mg Tablet
5 mg PO DAILY
pantoprazole 20 mg Tablet,Delayed Release (Dr/Ec)
20 mg PO DAILY
dextroamphetamine-amphetamine 30 mg Tablet
30 mg PO DAILY
Patient Comments:
05/26/2025, filled on 04/27/2025 for 60 tablets for 30-day supply per PDMP.
valsartan 320 mg Tablet
320 mg PO HS
dofetilide 500 mcg capsule
500 mcg PO BID
lorazepam 1 mg Tablet
0.5 mg PO Q6HPRN PRN (Reason: Agitation) Qty: 10 0RF
Patient Comments:
05/26/2025, filled on 05/14/2025 for 10 tablets for 5-day supply per PDMP.
cefdinir 300 mg capsule
300 mg PO BID 7 Days Qty: 14 0RF
Patient Comments:
05/26/2025, filled on 05/21/2025 and instructed to take 1 capsule BID for 7 days; last dose is Friday night (05/28/2025) per spouse.
dextroamphetamine-amphetamine 30 mg Tablet
30 mg PO HSPRN PRN (Reason: ADHD)
Patient Comments:
05/26/2025, filled on 04/27/2025 for 60 tablets for 30-day supply per PDMP.
prednisone 5 mg tablet
10 mg PO DAILY Qty: 0 0RF
Patient Comments:
05/26/2025, per spouse, dose was decreased to 10 mg and is supposed to be started tomorrow (05/27/2025).
Referrals:
Stalin Wisdom MD [Active, Urology] - Call in 1-3 days for appt
UNKNOWN - PT DOES,NOT KNOW [Family Provider]
Activity Restrictions/Additional Instructions:
Thank you for visiting the Emergency Department at [facility].
1. Please schedule a follow up appointment as directed. Call first thing tomorrow morning to make an appointment.
2. If indicated, please take your medications as instructed and indicated on discharge paperwork.
3. If any of your symptoms do not improve, or persist, or become more severe within 6-12 hours, please return to the emergency department for further care.
4. Please return to the emergency department if you develop a headache, neck pain/stiffness, fever greater than 100.4F, chest pain, shortness of breath, persistent nausea, vomiting, slurred speech, difficulty walking, numbness/tingling, weakness,
signs of infection or any other symptoms that are worrisome to you.
Please call [phone] if you have any questions.
Interventions
Interventions:
*Risk Screen - Suicide Last Done: 05/28/25 23:42
*General Assessment Last Done: 05/29/25 02:24
*Neglect/Abuse Screening Last Done: 05/28/25 23:42
*ED- Fall Risk Assessment Last Done: 05/28/25 23:42
*ED COVID-19 Vaccine History Last Done: 05/29/25 02:24
*Nursing Disposition Last Done: 05/29/25 07:12
ED-Male Genitourinary Assessment Last Done: 05/29/25 02:24
Discharge Date and Time
Discharge Date/Time: 05/29/25 07:13
Print Language: KHMER
[2025-05-29 04:00] VITALS: BP 173/85
[2025-05-29 04:08] LABS: Hematocrit 40.2 % (39.0-52.0); Hemoglobin 13.6 g/dL (13.0-18.0); Mean Corp Hgb Conc. 33.8 g/dL (33.0-37.0); Mean Corpuscular Volume 87.2 fL (80.0-94.0); Nucleated Red Blood Cells % 0 % (-); Platelet Count 87 10^3/uL (130-400); Red Cell Dist. Width 13.2 % (11.5-14.5)
[2025-05-29 04:18] LABS: Urine Character Cloudy (Clear)
[2025-05-29 04:23] LABS: ALT (SGPT) 39 U/L (0-50); AST (SGOT) 35 U/L (17-59); Albumin 3.3 g/dl (3.5-5.0); Alkaline Phosphatase 91 U/L (38-126); Blood Urea Nitrogen 26 mg/dl (9-20); Calcium 8.1 mg/dl (8.4-10.2); Carbon Dioxide 25 mmol/L (22-30); Chloride 109 mmol/L (98-107); Estimated Creatinine Clearance 87 ml/min; Glucose 99 mg/dl (70-99); Potassium 3.7 mmol/L (3.5-5.1); Sodium 137 mmol/L (135-145); Total Protein 5.3 g/dl (6.3-8.2); eGFR > 60.00
[2025-05-29 04:30] LABS: Urine Squamous Cell None seen /LPF (Few)
[2025-05-29 04:31] LABS: Urine Red Blood Cell >100 /HPF (0-2)
[2025-05-29 05:00] VITALS: BP 177/86
[2025-05-29] MEDS: LEVAQUIN 750 MG PO (05:25)
== END 2025-05-29 07:13 | disposition home or self-care (01) ==
LOC: EMR 23:38
PROVIDERS: EMERGENCY PHYSICIAN Emergency Medicine
DX: N39.0 Urinary tract infection, site not specified (principal); N40.1 Benign prostatic hyperplasia with lower urinary tract symptoms; I48.91 Unspecified atrial fibrillation; E78.00 Pure hypercholesterolemia, unspecified; I10 Essential (primary) hypertension; G47.30 Sleep apnea, unspecified; I25.10 Atherosclerotic heart disease of native coronary artery without angina pectoris; Z95.2 Presence of prosthetic heart valve; Z95.1 Presence of aortocoronary bypass graft; Z79.01 Long term (current) use of anticoagulants
CPT/HCPCS: 99284; 80053; 81003; 81015; 85025; 87086; 93005

== ENCOUNTER 2025-06-03 16:16 | Emergency (ER) | payer MEDICARE, OTHER, SELFPAY ==
[2025-06-03 16:21] VITALS: BP 128/95
[2025-06-03 16:28] VITALS: BMI 26.2
[2025-06-03 16:52] LABS: Urine Character Clear (Clear)
[2025-06-03 17:00] VITALS: BP 147/98
[2025-06-03 17:03] LABS: Urine White Cell 0-2 /HPF (0-5)
--- NOTE | 2025-06-03 17:49 | ED.GENMED ---
History of Present Illness
General
Chief Complaint: Male Genito-Urinary Symptoms
Source: patient and spouse
Time Seen by Provider: 06/03/25 16:36
History of Present Illness
History of Present Illness:
This patient is an 80-year-old male with a prior medical history consistent with valve replacement etc., recent urinary retention, recent Lyles placement. He had his Lyles removed on Friday and had a voiding trial before discharge. His
states that she has difficulty encouraging him to drink. Over the last 12 hours or so, patient has been unable to fully void although he did have urinary incontinence just prior to arrival here via EMS. Postvoid scan consistent with retention of
over 600 mL of urine. Patient denies flank pain, bleeding, fever, chills, chest pain. Status post Lyles placement he is remarkably better without any complaints
Past History
Past History
ED Past Medical History: Arrthythmia (Atrial fib), CAD, HTN, Hypercholesterolemia, Psychiatric (Depression, ) and Other (Arthritis, vertigo, Neck and back pain, Numbness arms and legs, PNA, Sleep apnea, Aortic stenosis, Urine retention, Low back
disc problem, )
ED Past Surgical History: Cardiac (7 cardiac stents, Quad Bypass, Valve replacement), Orthopedic (Neck fusion, Left hand/wrist surgery, Left shoulder rotator cuff) and Other (3 groin aneurysm. )
Social History
Tobacco: Non-smoker
Alcohol: None
Drug: None
Personal:
Living: with family
Phy Exam
Physical Exam
Physical Exam:
GENERAL: Alert , in no apparent distress
EYE: pupils equal and reactive
NECK: Supple, no significant adenopathy.
ENT: o/p clr, mmm.
CARDIAC: Regular rate and rhythm .
LUNGS: Clear breath sounds bilaterally, no acute respiratory distress, no wheezes/rales/rhonchi
ABDOMEN: Soft, without focal tenderness, no r/g, no cvat
NEUROLOGICAL: Alert and oriented, no focal neuro deficits
SKIN: Warm and dry, skin intact.
MUSCULOSKELETAL: No edema, well perfused.
PSYCH: Normal and appropriate interaction.
gu: no lesions/bleeding, Folye in place
Course
Orders/Labs/Results
Orders:
Orders
06/03/25 16:30
Urinalysis Reflex To Culture Urgent
Date Specimen was Collected: 06/03/25
Time Specimen was Collected: 16:29
Urine Microscopic Reflex Cult Urgent
Abnormal Lab Results
06/03/25
16:30
Ur Occult Blood Reflex 2+ A
(Negative)
Urine RBC 11-15 A /HPF
(0-2)
Urine Bacteria (Reflex) Few A
(Negative)
Urine Glucose 1+ A
(Negative)
Vital Signs
Initial and Last Documented VS:
Initial Vital Signs
Temp Pulse Resp BP Pulse Ox
97.5 F 55 20 128/95 97
06/03/25 16:21 06/03/25 16:21 06/03/25 16:21 06/03/25 16:21 06/03/25 16:21
Last Documented Vital Signs
Temp Pulse Resp BP Pulse Ox
97.5 F 52 12 147/98 99
06/03/25 16:21 06/03/25 17:15 06/03/25 17:15 06/03/25 17:00 06/03/25 17:55
*Pulse Oximetry
SaO2: 99
Oxygen Mode of Delivery: Room air
Patient hypoxic: no
*Critical Care Note
Total Time (30-74mins, 75-104mins- exclusive of procedures): Not Applicable
Update Note
Update Note:
Patient presents to the Emergency Department with ___unable to pass urine
Number and Complexity of Problems Addressed at the Encounter
� Chronic conditions affecting care:
� Acute Exacerbation and/or Progression of Chronic Illness:
� Differential Diagnosis includes: But not limited to post Lyles retention, bladder spasm, BPH, etc. etc.
Amount and/or Complexity of Data to be Reviewed and Analyzed
� I performed an independent evaluation of and my interpretation is:
EKG:
CT:
Xrays:
Laboratory Studies:
Other:
� Review of other/old records reveals:
� Clinical information was obtained by an independent historian: who is bedside
� Prescriptions/Medications Considered but not given:
� Further testing considered but not performed:
Risk of Complications and/or Morbidity or Mortality of Patient Management
� Social determinants of health affecting care:
� Discussion with other providers (PCP, Hospitalists, Consultants, etc):
� Escalation of care including admission/observation vs risk of discharge considered: Status post Lyles placement, patient is awake alert comfortable without any complaints, Lyles is draining well without blood. No fever, flank
pain, suspicious UA , etc. to suggest infection. Patient will go home with Lyles and be instructed to follow-up with urology early next week.
ED Attending Note
-
Portions of this chart may have been created with voice recognition software.� Occasional wrong word or��sound alike� substitutions may have occurred due to the inherent limitations of voice recognition software.
Discharge Plan
Departure
Patient Disposition: Home (Routine Discharge)
Date of Disposition: 06/03/25
Time of Disposition: 18:20
Patient with high blood pressure during this ER visit?: Yes
Condition: Good
Discharge Problem:
Acute urinary retention
Instructions: How to Care for Your Lyles Catheter, Male, Urinary Retention (DC), BLOOD PRESSURE
Prescriptions:
No Action
tamsulosin 0.4 MG capsule
0.4 mg PO HS
finasteride 5 MG tablet
5 mg PO HS
escitalopram oxalate 20 mg Tablet
20 mg PO HS
rosuvastatin 40 mg Tablet
40 mg PO HS
Eliquis 5 mg Tablet
5 mg PO BID
oxycodone-acetaminophen [Endocet] 10-325 mg tablet
1 tab PO Q6HPRN PRN (Reason: severe pain)
Patient Comments:
05/26/2025, filled on 04/19/2025 for 240 tablets for 30-day supply per PDMP.
furosemide 20 mg Tablet
20 mg PO DAILY Qty: 30 3RF
amlodipine 5 mg Tablet
5 mg PO DAILY
pantoprazole 20 mg Tablet,Delayed Release (Dr/Ec)
20 mg PO DAILY
dextroamphetamine-amphetamine 30 mg Tablet
30 mg PO DAILY
Patient Comments:
05/26/2025, filled on 04/27/2025 for 60 tablets for 30-day supply per PDMP.
valsartan 320 mg Tablet
320 mg PO HS
dofetilide 500 mcg capsule
500 mcg PO BID
lorazepam 1 mg Tablet
0.5 mg PO Q6HPRN PRN (Reason: Agitation) Qty: 10 0RF
Patient Comments:
05/26/2025, filled on 05/14/2025 for 10 tablets for 5-day supply per PDMP.
cefdinir 300 mg capsule
300 mg PO BID 7 Days Qty: 14 0RF
Patient Comments:
05/26/2025, filled on 05/21/2025 and instructed to take 1 capsule BID for 7 days; last dose is Friday night (05/28/2025) per spouse.
dextroamphetamine-amphetamine 30 mg Tablet
30 mg PO HSPRN PRN (Reason: ADHD)
Patient Comments:
05/26/2025, filled on 04/27/2025 for 60 tablets for 30-day supply per PDMP.
prednisone 5 mg tablet
10 mg PO DAILY Qty: 0 0RF
Patient Comments:
05/26/2025, per spouse, dose was decreased to 10 mg and is supposed to be started tomorrow (05/27/2025).
levofloxacin 750 mg tablet
750 mg PO DAILY 5 Days Qty: 5 0RF
Referrals:
Stalin Wisdom MD [Active, Urology] - Next open appointment
Activity Restrictions/Additional Instructions:
IF YOU DEVELOP POOR DRAINAGE FROM LYLES CATHETER, BLEEDING, ABDOMINAL/FLANK PAIN, FEVER, VOMITING, OR OTHER WORRISOME SIGNS, GO TO THE ER IMMEDIATELY!
Interventions
Interventions:
*Risk Screen - Suicide Last Done: 06/03/25 16:21
*General Assessment Last Done: 06/03/25 16:21
*Neglect/Abuse Screening Last Done: 06/03/25 16:21
*ED- Fall Risk Assessment Last Done: 06/03/25 16:21
*ED COVID-19 Vaccine History Last Done: 06/03/25 16:21
ED-Male Genitourinary Assessment Last Done: 06/03/25 16:28
Discharge Date and Time
Print Language: FAROESE
[2025-06-03 18:00] VITALS: BP 145/92
== END 2025-06-03 19:15 | disposition home or self-care (01) ==
LOC: EMR 16:16
PROVIDERS: Emergency Medicine; EMERGENCY PHYSICIAN Emergency Medicine; FAMILY PHYSICIAN Physician Assistant
DX: R33.9 Retention of urine, unspecified (principal); I48.91 Unspecified atrial fibrillation; I25.10 Atherosclerotic heart disease of native coronary artery without angina pectoris; I10 Essential (primary) hypertension; E78.00 Pure hypercholesterolemia, unspecified; F32.A Depression, unspecified; M19.90 Unspecified osteoarthritis, unspecified site; G47.30 Sleep apnea, unspecified; I35.0 Nonrheumatic aortic (valve) stenosis; Z79.01 Long term (current) use of anticoagulants; Z95.5 Presence of coronary angioplasty implant and graft; Z95.2 Presence of prosthetic heart valve; Z95.1 Presence of aortocoronary bypass graft; Z87.01 Personal history of pneumonia (recurrent); M43.22 Fusion of spine, cervical region; Z88.8 Allergy status to other drugs, medicaments and biological substances
CPT/HCPCS: 99284; 51702; 51798; 81003; 81015

== ENCOUNTER 2025-06-22 19:28 | Emergency (ER) | payer MEDICARE, OTHER, SELFPAY ==
[2025-06-22 19:33] VITALS: BP 141/81
[2025-06-22 22:31] VITALS: BP 126/74
[2025-06-22 22:35] LABS: Urine Character Cloudy (Clear)
[2025-06-22 22:47] LABS: Urine Red Blood Cell >100 /HPF (0-2); Urine Squamous Cell 0-2 /LPF (Few); Urine White Cell 30-40 /HPF (0-5)
--- NOTE | 2025-06-22 23:24 | ED.GENMED ---
Addendum entered and electronically signed by Jesús Thomas PA-C 06/27/25 06:11:
Likely skin contaminant with chronic Weiss
Original Note:
History of Present Illness
General
Chief Complaint: Urinary Symptoms
Source: patient, spouse and previous hospital records (Multiple recent ED visits for similar complaint.)
Exam Limitations: none
Time Seen by Provider: 06/22/25 23:09
Nursing documentation reviewed up to this point in time: agreed with
History of Present Illness
History of Present Illness:
The patient is an 80-year-old male with a history of using an indwelling urinary catheter. The catheter had not been draining well, which was noted by minimal urine output in the collection bag since morning. The patient exhibited symptoms
indicative of a urinary tract infection. Upon examination in the emergency department, the bladder with bladder scan, no residual urine within the bladder. The catheter bag was noted to be past full upon arrival, resolving concerns of a blockage.
The catheter had previously been removed for a voiding trial, but the patient did not do well and had to come back on the for reinsertion. The catheter was changed again by a urologist yesterday due to leakage, opting for a larger catheter
size.
Patient has not had a fever. He denies abdominal pain.
Chronically maintained on tamsulosin and finasteride.
He has history of A-fib chronically maintained on Eliquis.
Upon review of records, ED visit June 03 for acute urinary retention after patient failed voiding trial. Weiss catheter reinserted during that ED visit.
ED visit May 29, blocked Weiss catheter. Catheter changed. Was placed on a 5-day course of Levaquin however urine culture negative for infection.
Past History
Past History
ED Past Medical History: Arrthythmia (Atrial fib), CAD, HTN, Hypercholesterolemia, Psychiatric (Depression, ) and Other (Arthritis, vertigo, Neck and back pain, Numbness arms and legs, PNA, Sleep apnea, Aortic stenosis, Urine retention, Low back
disc problem, )
ED Past Surgical History: Cardiac (7 cardiac stents, Quad Bypass, Valve replacement), Orthopedic (Neck fusion, Left hand/wrist surgery, Left shoulder rotator cuff) and Other (3 groin aneurysm. )
Social History
Tobacco: Non-smoker
Alcohol: None
Drug: None
Personal:
Living: with family
Employment: Retired
Family History
Family History: Other (Noncontributory)
Phy Exam
Physical Exam
Physical Exam:
GENERAL: 80-year-old gentleman appears his stated age, bright and alert, pleasant, appears in no acute distress. is accompanying.
EYE: anicteric
NECK: Supple, nontender, no meningismus, no significant adenopathy.
ENT: oral mucosa is moist. No rhinorrhea.
CARDIAC: Regular rate and rhythm. no murmur.
LUNGS: Clear breath sounds bilaterally, no acute respiratory distress, no wheezes/rales/rhonchi
ABDOMEN: Soft, nondistended, without focal tenderness, no r/g, no cvat. normoactive BS. Bladder is not palpably distended. No abdominal tenderness. Weiss catheter draining clear minimally blood-tinged urine.
NEUROLOGICAL: Alert and oriented x3, no focal neuro deficits.
SKIN: Warm and dry, normal color, skin intact. No rash.
MUSCULOSKELETAL: No C/C/E. peripheral pulses are full and equal b/l. No palpable tenderness.
PSYCH: Normal and appropriate interaction.
Course
Orders/Labs/Results
Orders:
Orders
06/22/25 22:27
UA Reflex to Culture [Urinalysis Reflex To Culture] Urgent
Date Specimen was Collected: 06/22/25
Time Specimen was Collected: 22:25
Urine Microscopic Reflex Cult Urgent
Urine Culture Urgent
ALEJANDRA Source: U
Specimen Description:
Date Specimen was Collected: 06/22/25
Time Specimen was Collected: 22:25
Abnormal Lab Results
06/22/25
22:27
Ur Occult Blood Reflex 4+ A
(Negative)
Leukocyte Esterase Rfl 3+ A
(Negative)
Urine RBC >100 A /HPF
(0-2)
Urine WBC (Reflex) 30-40 A /HPF
(0-5)
Urine Bacteria (Reflex) Few A
(Negative)
Urine Albumin (Reflex) 2+ A
(Neg - Trace)
Vital Signs
Initial and Last Documented VS:
Initial Vital Signs
Temp Pulse Resp BP Pulse Ox
98.4 F 72 18 141/81 98
06/22/25 19:33 06/22/25 19:33 06/22/25 19:33 06/22/25 19:33 06/22/25 19:33
Last Documented Vital Signs
Temp Pulse Resp BP Pulse Ox
98.1 F 66 16 126/74 96
06/22/25 22:31 06/22/25 22:31 06/22/25 22:31 06/22/25 22:31 06/22/25 23:26
MDM/Problems Addressed
Differential Diagnosis Includes:
Blocked Weiss catheter appears to have unblocked itself/obstruction has resolved.
As catheter recently changed yesterday, at this point no indication to change again.
As patient has chronic indwelling Weiss catheter, he is at increased risk for catheter associated infection.
Urinalysis shows 30-40 WBCs, moderate RBCs but only few bacteria.
As patient is overall well in appearance, afebrile, no abdominal pain, will hold off on antibiotic and instead await urine culture.
Discussed importance of remaining well-hydrated on a daily basis.
Prompt follow-up with urology for recheck.
Return precautions discussed.
Chronic conditions affecting care: Arrhythmia and Other (Chronic urinary retention-requiring chronic indwelling Weiss catheter)
*Pulse Oximetry
SaO2: 96
Oxygen Mode of Delivery: Room air
Patient hypoxic: no
*Critical Care Note
Total Time (30-74mins, 75-104mins- exclusive of procedures): Not Applicable
ED Attending Note
-
Portions of this chart may have been created with voice recognition software.� Occasional wrong word or��sound alike� substitutions may have occurred due to the inherent limitations of voice recognition software.
Discharge Plan
Departure
Patient Disposition: Home (Routine Discharge)
Date of Disposition: 06/22/25
Time of Disposition: 23:24
Patient with high blood pressure during this ER visit?: No
Discharge Problem:
Complication, blocked Weiss catheter
Instructions: How to Care for Your Weiss Catheter, Male
Prescriptions:
No Action
tamsulosin 0.4 MG capsule
0.4 mg PO HS
finasteride 5 MG tablet
5 mg PO HS
escitalopram oxalate 20 mg Tablet
20 mg PO HS
rosuvastatin 40 mg Tablet
40 mg PO HS
Eliquis 5 mg Tablet
5 mg PO BID
oxycodone-acetaminophen [Endocet] 10-325 mg tablet
1 tab PO Q6HPRN PRN (Reason: severe pain)
Patient Comments:
05/26/2025, filled on 04/19/2025 for 240 tablets for 30-day supply per PDMP.
furosemide 20 mg Tablet
20 mg PO DAILY Qty: 30 3RF
amlodipine 5 mg Tablet
5 mg PO DAILY
pantoprazole 20 mg Tablet,Delayed Release (Dr/Ec)
20 mg PO DAILY
dextroamphetamine-amphetamine 30 mg Tablet
30 mg PO DAILY
Patient Comments:
05/26/2025, filled on 04/27/2025 for 60 tablets for 30-day supply per PDMP.
valsartan 320 mg Tablet
320 mg PO HS
dofetilide 500 mcg capsule
500 mcg PO BID
lorazepam 1 mg Tablet
0.5 mg PO Q6HPRN PRN (Reason: Agitation) Qty: 10 0RF
Patient Comments:
05/26/2025, filled on 05/14/2025 for 10 tablets for 5-day supply per PDMP.
cefdinir 300 mg capsule
300 mg PO BID 7 Days Qty: 14 0RF
Patient Comments:
05/26/2025, filled on 05/21/2025 and instructed to take 1 capsule BID for 7 days; last dose is Friday night (05/28/2025) per spouse.
dextroamphetamine-amphetamine 30 mg Tablet
30 mg PO HSPRN PRN (Reason: ADHD)
Patient Comments:
05/26/2025, filled on 04/27/2025 for 60 tablets for 30-day supply per PDMP.
prednisone 5 mg tablet
10 mg PO DAILY Qty: 0 0RF
Patient Comments:
05/26/2025, per spouse, dose was decreased to 10 mg and is supposed to be started tomorrow (05/27/2025).
levofloxacin 750 mg tablet
750 mg PO DAILY 5 Days Qty: 5 0RF
Referrals:
Iris Evans PA-C [Family Provider, Internal Medicine]
Stalin Wisdom MD [Active, Urology] - Call in 1-3 days for appt
Activity Restrictions/Additional Instructions:
Stay well-hydrated on a daily basis.
Your Weiss catheter seems to be functioning, draining well. At this point no indication to change the catheter, especially as it was just replaced yesterday.
Urinalysis shows only few bacteria but does show some red blood cells and white blood cells. No definitive evidence of a UTI thus we have held off on antibiotics and instead we will await urine culture results.
Follow-up with Dr. Wisdom for recheck.
Interventions
Interventions:
*Risk Screen - Suicide Last Done: 06/22/25 19:33
*General Assessment Last Done: 06/22/25 21:21
*Neglect/Abuse Screening Last Done: 06/22/25 19:33
*ED- Fall Risk Assessment Last Done: 06/22/25 21:21
*ED COVID-19 Vaccine History Last Done: 06/22/25 21:21
ED-Male Genitourinary Assessment Last Done: 06/22/25 21:21
Discharge Date and Time
Print Language: SERBIAN
== END 2025-06-22 23:30 | disposition home or self-care (01) ==
LOC: EMR 19:28
PROVIDERS: Emergency Medicine; EMERGENCY PHYSICIAN Emergency Medicine; FAMILY PHYSICIAN Physician Assistant
DX: T83.091A Other mechanical complication of indwelling urethral catheter, initial encounter (principal); Y92.9 Unspecified place or not applicable; I48.91 Unspecified atrial fibrillation; I25.10 Atherosclerotic heart disease of native coronary artery without angina pectoris; I10 Essential (primary) hypertension; E78.00 Pure hypercholesterolemia, unspecified; F32.A Depression, unspecified; G47.30 Sleep apnea, unspecified; I35.0 Nonrheumatic aortic (valve) stenosis; M19.90 Unspecified osteoarthritis, unspecified site; Z79.01 Long term (current) use of anticoagulants; Z95.2 Presence of prosthetic heart valve; Z95.5 Presence of coronary angioplasty implant and graft; Z96.612 Presence of left artificial shoulder joint
CPT/HCPCS: 99282; 81003; 81015; 87086; 87147; 87186

== ENCOUNTER → 2025-07-07 12:16 | Outpatient (REF) | payer MEDICARE, OTHER, SELFPAY ==
[2025-07-07 17:24] LABS: Urine Character Cloudy (Clear)
[2025-07-07 17:40] LABS: Urine Squamous Cell 0-2 /LPF (Few); Urine White Cell 21-25 /HPF (0-5)
== END ==
LOC: CLAB 12:16
PROVIDERS: ATTENDING PHYSICIAN Surgery
DX: R39.9 Unspecified symptoms and signs involving the genitourinary system (principal)
CPT/HCPCS: 81003; 81015; 87086

== ENCOUNTER → 2025-11-14 10:49 | Outpatient (REF) | payer MEDICARE, OTHER, SELFPAY ==
[2025-11-14 11:58] LABS: Hematocrit 45.6 % (39.0-52.0); Hemoglobin 15.5 g/dL (13.0-18.0); Mean Corp Hgb Conc. 34.0 g/dL (33.0-37.0); Mean Corpuscular Volume 84.9 fL (80.0-94.0); Nucleated Red Blood Cells % 0 % (-); Red Cell Dist. Width 12.4 % (11.5-14.5)
[2025-11-14 13:20] LABS: ALT (SGPT) 28 U/L (0-50); AST (SGOT) 34 U/L (17-59); Albumin 4.4 g/dl (3.5-5.0); Alkaline Phosphatase 91 U/L (38-126); Blood Urea Nitrogen 18 mg/dl (9-20); Calcium 9.3 mg/dl (8.4-10.2); Carbon Dioxide 31 mmol/L (22-30); Chloride 101 mmol/L (98-107); Glucose 94 mg/dl (70-99); HDL Cholesterol 92 mg/dl; LDL Cholesterol, Calculated 80 mg/dl; Potassium 4.8 mmol/L (3.5-5.1); Sodium 137 mmol/L (135-145); Total Protein 7.0 g/dl (6.3-8.2); Very Low Density Lipoprotein 17 mg/dl (0-30); eGFR > 60.00
[2025-11-14 16:39] LABS: Platelet Count 63 10^3/uL (130-400)
== END ==
LOC: REG 10:49
PROVIDERS: ATTENDING PHYSICIAN Internal Medicine Cardiovascular Disease; FAMILY PHYSICIAN Physician Assistant
DX: E78.2 Mixed hyperlipidemia (principal); Z09 Encounter for follow-up examination after completed treatment for conditions other than malignant neoplasm; D69.3 Immune thrombocytopenic purpura; G92.8 Other toxic encephalopathy
CPT/HCPCS: 36415; 80053; 80061; 85025